=== PATIENT | female | born 1965 | race Caucasian/White ===

== ENCOUNTER 2020-05-02 11:28 | Inpatient (IN) ==
[2020-05-02] MEDS ORDERED: GADOBENATE DIMEGLUMINE 15 ML/VIAL IV ONE (11:29)
[2020-05-02] MEDS ORDERED: 0.9 % SODIUM CHLORIDE 1,000 ML IV ONE (11:47)
[2020-05-02] MEDS ORDERED: KETOROLAC 30 MG/ML VIAL IV ONE (11:47)
[2020-05-02] MEDS ORDERED: CYCLOBENZAPRINE 10 MG TABLET PO ONE (11:47)
[2020-05-02] MEDS ORDERED: ACETAMINOPHEN 1,000 MG/100 ML BOTTLE IV ONE (12:34)
[2020-05-02] MEDS ORDERED: PROMETHAZINE 25 MG/ML VIAL IV ONE (12:34)
[2020-05-02] MEDS ORDERED: fentaNYL 100 MCG/2 ML VIAL IV PRN (12:34)
[2020-05-02 12:44] LABS: Basophils # (Auto) 0.03 K/mcL (0.00-0.30); Basophils % (Auto) 0.2 % (0.0-2.0); Eosinophils # (Auto) 0.04 K/mcL (0.00-0.70); Eosinophils % (Auto) 0.2 % (0.0-7.0); Granulocytes % (Auto) 89.2 % (38.0-78.0); Hematocrit 35.8 % (34.1-44.9); Hemoglobin 12.1 g/dL (11.2-15.7); Lymphocytes # (Auto) 0.73 K/mcL (1.50-4.80); Lymphocytes % (Auto) 3.9 % (15.5-49.0); Mean Cell Volume 94.7 fL (80.0-100.0); Mean Corpuscular HGB Conc 33.8 g/dL (31.0-36.0); Mean Platelet Volume 9.4 fL (7.4-10.4); Monocytes # (Auto) 1.23 K/mcL (0.10-0.90); Monocytes % (Auto) 6.5 % (1.0-12.0); Platelet Count 146 K/mcL (140-440); RBC 3.78 M/mcL (3.59-5.38); Red Cell Distribution Width 12.8 % (11.5-14.5); WBC 18.8 K/mcL (4.50-11.00)
--- NOTE | 2020-05-02 12:50 | XRay Report ---
HISTORY: Fever and back pain FINDINGS: There is a thin band of scar or discoid atelectasis above the left costophrenic sulcus. The lungs are otherwise clear and well expanded, without evidence of pneumonia. There is no pleural effusion or adenopathy. The heart size is normal. IMPRESSION: Normal chest. Interpreted and Authenticated by: Wayne Stone 05/02/20
[2020-05-02 13:03] LABS: HCG,Serum NEGATIVE <10 (<10 mIU/ml)
[2020-05-02 13:08] LABS: ALT/SGPT 18 U/l (0-40); AST/SGOT 21 U/l (0-37); Albumin 4.1 gm/dL (3.2-5.2); Albumin/Globulin Ratio 2.2 (1.0-2.3); Alkaline Phosphatase 65 U/L (39-117); Bilirubin,Total 0.9 mg/dL (0.0-1.0); Blood Urea Nitrogen 13 mg/dl (6-20); C-Reactive Protein 13.2 mg/dl (0.0-0.8); Calcium 8.8 mg/dl (8.6-10.4); Carbon Dioxide 23 mmol/L (22-30); Chloride 101 mmol/L (96-108); Globulin 1.9 gm/dL (2.2-3.7); Glomerular Filtration Rate 98; Glucose 104 mg/dL (70-105)
[2020-05-02 13:33] LABS: Erythrocyte Sedimentation Rate 19 mm/hr (0-20)
[2020-05-02] MEDS ORDERED: VANCOMYCIN 1,500 MG in 0.9 % SODIUM CHLORIDE 500 ML IV ONE (14:17)
[2020-05-02] MEDS ORDERED: cefTRIAXone 2 GM in DEXTROSE 5% IN WATER 50 ML IV ONE (14:17)
--- NOTE | 2020-05-02 14:36 | Emergency Department Note ---
HPI General Chief complaint: Back Pain/Injury Stated complaint: Lower Back Pain Time Seen by Provider: 05/02/20 11:30 Source: patient Mode of arrival: ambulatory Limitations: no limitations History of Present Illness HPI Narrative: Narrative: 54-year old patient presenting with chief complaint of back pain. Patient's pain is located primarily at the lumbar aspect of her back. Patient has been having pain for she does have pain chronically but only over the past few days has gotten very severe. Patient reporting pain is severe at time of evaluation. Patient with history of back pain in the past similar not this bad in the past also was seen about 12 hours ago without complete resolution of her pain despite treatment that usually works. Patient noted to be febrile having difficulty urinating despite feeling full in the bladder, pt is on immunosuppressive medication, pt with radiculopathy symptoms to the right lower extremity; pt without unintentional weight loss, night sweats, weakness, falling or gait instability, patient is also without saddle anesthesia, patient without history of IV drug use. Related Data Home Medications Medication Instructions Recorded Confirmed magnesium oxide 500 mg capsule 500 mg PO QDAY 03/17/16 05/01/20 cholecalciferol (vitamin D3) 3,000 unit PO QDAY cap 07/08/16 05/01/20 lorazepam 0.5 mg tablet 0.5 mg BUCCAL QD-BID PRN 10/24/17 05/01/20 hydroxychloroquine 200 mg tablet 200 mg PO .COMPLEX tab 10/19/18 05/01/20 leflunomide 20 mg tablet 20 mg PO QDAY 10/19/18 05/01/20 omega-3 fatty acids 1,000 mg 1,000 mg PO QDAY 10/19/18 05/01/20 capsule gabapentin 300 mg capsule 300 mg PO TID cap 12/07/19 05/01/20 ibuprofen 200 mg tablet 1,200 mg PO Q8H tab 12/07/19 05/01/20 methocarbamol 750 mg tablet 1,500 mg PO qhs PRN tab 12/07/19 05/01/20 tramadol 50 mg tablet 50 mg PO BID PRN tab 12/07/19 05/01/20 diclofenac sodium 1 % topical gel 2 g TOPICAL QID 04/04/20 05/01/20 Previous Rx's Medication Instructions Recorded fexofenadine 180 mg tablet 180 mg PO QDAY #10 tab 03/29/20 triamcinolone acetonide 0.1 % 1 applic TOPICAL TID #30 g 03/29/20 topical cream Allergies Allergy/AdvReac Type Severity Reaction Status Date / Time niacin AdvReac Rash Verified 05/01/20 21:38 Review of Systems ROS ROS Narrative: Narrative: All systems ED: reviewed and negative except as stated. [facility] Narrative Patient History Narrative: Narrative: Medical/Surgical/Family History All Active Problems (Updated 05/02/20 @ 19:02 by Danny Garcia MD) Phlegmon (Acute) Mass of psoas muscle (Acute) History of surgery (Chronic) PTSD (post-traumatic stress disorder) (Chronic) Tobacco use (Chronic) Chronic pain (Chronic) Radiculopathy, lumbar region (Chronic) Radiculopathy, lumbosacral region (Chronic) Dermatitis (Acute) Effusion, left knee (Acute) Effusion, left knee (Acute) Acute lumbar myofascial strain (Acute) Status post left knee replacement (Acute) Post-operative haemorrhage (Acute) Urticaria (Acute) Allergic reaction (Acute) Influenza-like illness (Acute) Hip pain, right (Acute) Osteoarthritis (Chronic) Hypermobile joints (Chronic) Back pain (Acute) Polyarthralgia (Chronic) Swelling of left knee joint (Acute) S/P hip replacement (Chronic) Vitamin D deficiency (Chronic) Spondylolisthesis, lumbar region (Chronic) Left leg pain (Chronic) Chronic lumbar pain (Chronic) Degenerative disc disease (Chronic) Spinal stenosis (Chronic) Bernardo-Danlos syndrome (Chronic) Anxiety (Chronic) Lumbar back pain (Chronic) Medical History (Updated 05/02/20 @ 19:02 by Danny Garcia MD) Abscess of skin or subcutaneous tissue (Resolved) Anxiety (Chronic) in the 90's Back pain (Acute) Chronic lumbar pain (Chronic) Chronic pain (Chronic) Degenerative disc disease (Chronic) Depression with suicidal ideation (Ruled-out) Effusion, left knee (Acute) Effusion, left knee (Acute) Bernardo-Danlos syndrome (Chronic) Elevated serum hCG in female, not (Ruled-out) Encounter for wound re-check (Resolved) History of tobacco use (Chronic) Hypermobile joints (Chronic) Laceration (Resolved) Left leg pain (Chronic) left total hip replacement 11//2006 Lumbar back pain (Chronic) Muscle pain (Inactive) in youth Osteoarthritis (Chronic) Polyarthralgia (Chronic) PTSD (post-traumatic stress disorder) (Chronic) Radiculopathy, lumbar region (Chronic) Radiculopathy, lumbosacral region (Chronic) Scoliosis (Resolved) Spinal stenosis (Chronic) Spondylolisthesis, lumbar region (Chronic) Swelling of left knee joint (Acute) Tobacco use (Chronic) Vitamin D deficiency (Chronic) Surgical History H/O knee surgery (Inactive) 1995 patella realignment H/O tubal ligation (Chronic) 1997 H/O: hysterectomy (Chronic) 2004 History of lumbar fusion (Chronic) 2015 History of surgery (Chronic) LESI #2 L4-5 w/sed 11/12/19 LESI #1 L4-5 w/sed 06/27/2019 LESI #2 L4-5 w/sed 07/04/2018 LESI #1 L4-5 w/sed 03/20/18 LESI #1 L4-5 w/sed 07/21/17 Knee Joint Injection, left w/sed 07/21/17 LESI #2 L4-5 w/o sed 02/02/2017 LESI #1 L4-5 w/sed 01/13/2017 History of total left hip arthroplasty (Chronic 08/30/16) Hx of appendectomy (Chronic) 1977 Hx of section (Chronic) x2 1986 & 1990 Hx of tonsillectomy (Chronic) 1992 S/P removal of ovarian cyst (Chronic) 1977 Status post lumbar spinal fusion (Inactive) Family History Mother Arthritis Grandfather Myocardial infarction acute Maternal Grandmother Stroke Maternal Social History Smoking Status: Current every day smoker Alcohol Intake Frequency: holiday/special occasion only Substance Use: marijuana Exam Narrative Narrative: Narrative:General: Alert, interactive, appropriate Head: Atraumatic, normocephalic Eyes: Extraocular movements intact, sclera anicteric, no conjunctival injection Ears: Pinnae normal, no discharge Mouth: Oral mucosa moist, no acute swelling or evidence of infection Nares: No nasal discharge, patent bilaterally Neck: Trachea midline, full range of motion Chest: Symmetrical chest wall rise, breathing normally; nonlabored respirations Cardiovascular: Patient with excellent perfusion to the extremities; without tachycardia/bradycardia Skin: Patient without area of erythema, patient is without rash, no ascending lymphangitis or lymphadenopathy Back: On assessment of the back patient is without step-offs, she does have focal tenderness to the midline at L3, there is no erythema to suggest underlying infection, no fluctuance, very focally tender Extremities: Full range of motion joints, no obvious deformities Neuro: Alert, oriented x3, cranial nerves II through XII grossly intact, patient without lateralizing findings such as weakness, or abnormal reflexes Psychiatric: Normal affect, normal mood General Limitations: no limitations Course Vital Signs Vital signs: Vital Signs Temperature 101.5 F H 05/02/20 11:28 Pulse Rate 83 05/02/20 11:28 Respiratory Rate 20 05/02/20 11:28 Blood Pressure 120/69 05/02/20 11:28 Pulse Oximetry (%) 96 05/02/20 11:28 Temperature 101.5 F H 05/02/20 11:28 Pulse Rate 81 05/02/20 14:03 Respiratory Rate 20 05/02/20 11:28 Blood Pressure 103/63 05/02/20 14:03 Pulse Oximetry (%) 94 05/02/20 14:03 [facility] MDM Narrative Medical decision making narrative: Narrative:This patient presenting with back pain. She noted to be febrile at this time was seen about 12 hours prior to arr ival today with similar symptoms however at that time she was not febrile patient without significant tachycardia or hypotension. Patient with very focal tenderness to the midline L3-L4 area on her back. Patient with urinalysis that does not suggest a urinary source for her fever she does have elevated white blood cell count chest x-ray does not show a source for her fever either. Given patient is immunosuppressed with a fever and back pain focal tenderness will get MRI of her L-spine to evaluate for possible discitis, spinal epidural abscess. As were waiting for the MRI patient was given vancomycin 1.5 g and Rocephin 2 g IV. The differential included lumbar strain, disc herniation, sciatica, spinal stenosis, UTI, pyelonephritis, chronic back pain, thoracic strain, contusion, vertebral fracture, compression fractures, shingles, ureteral stone, and scoliosis fortunately no red flags are present. There is no history of trauma. MRI has suspicion for possible early early developing phlegmon left psoas muscle. After discussion with radiologist here as well as Dr. Oden noting that ou r radiologist will do interventional procedure if this does develop into a psoas abscess. Discussed the case with our hospitalist here Dr. Mcrae and patient will be admitted for ongoing antibiotics with plan for CT with contrast tomorrow morning to reevaluate this area. Lab Data Result diagrams: 05/02/20 12:00 05/02/20 12:00 Labs: Lab Results 05/02/20 05/02/20 Range/Units 12:00 12:00 WBC 18.8 H (4.50-11.00) K/mcL RBC 3.78 (3.59-5.38) M/mcL Hgb 12.1 (11.2-15.7) g/dL Hct 35.8 (34.1-44.9) % MCV 94.7 (80.0-100.0) fL MCH 32.0 (26.0-34.0) pg MCHC 33.8 (31.0-36.0) g/dL RDW 12.8 (11.5-14.5) % Plt Count 146 (140-440) K/mcL MPV 9.4 (7.4-10.4) fL Gran % 89.2 H (38.0-78.0) % Lymph % (Auto) 3.9 L (15.5-49.0) % [place] % (Auto) 6.5 (1.0-12.0) % Eos % (Auto) 0.2 (0.0-7.0) % Baso % (Auto) 0.2 (0.0-2.0) % Gran # 16.80 H (1.80-8.00) K/mcL Lymph # (Auto) 0.73 L (1.50-4.80) K/mcL [place] # (Auto) 1.23 H (0.10-0.90) K/mcL Eos # (Auto) 0.04 (0.00-0.70) K/mcL Baso # (Auto) 0.03 (0.00-0.30) K/mcL ESR 19 (0-20) mm/hr Sodium 135 (133-145) mmol/L Potassium 4.0 (3.3-5.1) mmol/L Chloride 101 (96-108) mmol/L Carbon Dioxide 23 (22-30) mmol/L Anion Gap 11.0 (8-16) BUN 13 (6-20) mg/dl Creatinine 0.7 (0.6-1.1) mg/dl GFR Calculation 98 Glucose 104 (70-105) mg/dL Calcium 8.8 (8.6-10.4) mg/dl Total Bilirubin 0.9 (0.0-1.0) mg/dL AST 21 (0-37) U/l ALT 18 (0-40) U/l Alkaline Phosphatase 65 (39-117) U/L C-Reactive Protein 13.2 H (0.0-0.8) mg/dl Total Protein 6.0 (5.9-8.4) gm/dL Albumin 4.1 (3.2-5.2) gm/dL Globulin 1.9 L (2.2-3.7) gm/dL Albumin/Globulin Ratio 2.2 (1.0-2.3) HCG, Qual Negative <10 (<10 mIU/ml) Discharge Plan Patient/Caregiver Discharge Instructions Pt seen by PATIENT SITTER/PA only: No Clinical Impression: Phlegmon, Mass of psoas muscle Patient Disposition: Xfer As Inpt ([facility]) Follow up with: Lory Laird ARNP [Primary Care Provider] - Prescriptions: No Action magnesium oxide 500 mg capsule 500 mg PO QDAY RF: 0 cholecalciferol (vitamin D3) 2,000 unit capsule 3,000 unit PO QDAY RF: 0 diclofenac sodium [Voltaren] 1 % gel 2 g TOPICAL QID RF: 0 lorazepam 0.5 mg tablet 0.5 mg BUCCAL QD-BID PRN (Reason: Anxiety) RF: 0 methocarbamol 750 mg tablet 1,500 mg PO qhs PRN (Reason: low back pain) RF: 0 tramadol 50 mg tablet 50 mg PO BID PRN (Reason: pain) RF: 0 ibuprofen 200 mg tablet 1,200 mg PO Q8H RF: 0 fexofenadine 180 mg tablet 180 mg PO QDAY Qty: 10 RF: 0 triamcinolone acetonide 0.1 % cream 1 applic TOPICAL TID Qty: 30 RF: 0 omega-3 fatty acids [Fish Oil Concentrate] 1,000 mg capsule 1,000 mg PO QDAY RF: 0 leflunomide 20 mg tablet 20 mg PO QDAY RF: 0 hydroxychloroquine [Plaquenil] 200 mg tablet 200 mg PO .COMPLEX RF: 0 gabapentin 300 mg capsule 300 mg PO TID RF: 0
[2020-05-02 15:41] LABS: Appearance,Urine CLEAR; Bilirubin,Urine NEG (NEG); Color,Urine YELLOW; Culture Indicated,Urine NO; Glucose,Urine (UA) NEGATIVE (NEG); Ketones,Urine NEG (NEG); Leukocyte Esterase,Urine NEG /uL (NEG); Nitrate,Urine NEG (NEG); Protein,Urine NEG (NEG); Specific Gravity,Urine 1.009 (1.000-1.035); Urine Blood NEG mg/dL (<0.03); Urobilinogen,Urine NEG (NEG)
--- NOTE | 2020-05-02 16:14 | Magnetic Resonance Report ---
History: Severe low back pain radiating to the left posterior thigh, fever and possible infection TECHNIQUE: Multiplanar imaging was performed using multiple pulse sequences. 12 mL of MultiHance contrast was injected intravenously. Postcontrast T1-weighted views were obtained. FINDINGS: There is abnormal swelling and inflammation in the left psoas muscle extending from the L1-2 level down to L5-S1. The greatest swelling is at the L2 and L3 levels. This has low level diffuse enhancement following contrast. No abscess is seen in or adjacent to the muscle. The swelling and inflammation of the muscle are a new finding since the lumbar CT scan performed yesterday. There is no evidence of discitis or osteomyelitis. There is significant reactive sclerosis in the bone marrow on both sides of the severely degenerated L2-3 disc space. There is increased signal within the nucleus pulposus on T2 but it does not enhance with contrast. There is mild spinal canal stenosis at this level There is stable severe disc degeneration and arthritis throughout the lumbar spine and lower thoracic spine and there are postoperative changes following prior fusion at L3-4. There is no evidence of an epidural abscess and no critical spinal canal stenosis has developed. No hydronephrosis is present. Urinary bladder is outside the field of view. IMPRESSION: New onset inflammation and swelling of the left psoas muscle. This may be a phlegmon. No evidence of osteomyelitis, discitis or paraspinal abscess Stable advanced disc degeneration and arthritis throughout the spine, unchanged from CT scan performed on 05/01/20 Dr. Garcia was called with the results Interpreted and Authenticated by: Wayne Stone 05/02/20
[2020-05-02] MEDS ORDERED: ONDANSETRON 4 MG/2 ML VIAL IV ONE (16:28)
[2020-05-02] MEDS ORDERED: ONDANSETRON 4 MG/2 ML VIAL IV PRN (18:51)
[2020-05-02] MEDS ORDERED: PROMETHAZINE 25 MG/ML VIAL IV PRN ×2 (18:56→20:22)
[2020-05-02] MEDS ORDERED: ZOLPIDEM 5 MG TABLET PO PRN (18:56)
[2020-05-02] MEDS ORDERED: VANCOMYCIN PER PHARMACY IV SCH (19:10)
[2020-05-02] MEDS ORDERED: HYDROXYCHLOROQUINE 200 MG TABLET PO SCH (19:30)
--- NOTE | 2020-05-02 19:37 | Internal Med History&Physical ---
HPI History of Present Illness Patient information: Note initiated : 05/02/20 at 7:25 pm Service Date, if different from initiated Date: [] Patient: Nita Antonio a 54 y/o F admitted on for Lower Back Pain. Chief Complaint: [back pain] History of present illness: Ms. 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 As per patient, patient has been having lower back pain since 11 years old. But she has been feeling a different lower back pain since yesterday 12 noon. The pain is most severe and radiated to her upper back and left thigh. The pain is constant and 10 out of 10. She also complains of nausea and fever. She vomited once today. Otherwise she denies headache, dizziness, chest pain, abdominal pain, dysuria, cough or shortness of breath. Denies urinary or bowel incontinence. Denies focal numbness or weakness. No recent travel or sick contact. Patient admits she is a current smoker. She also states that she has RA. Review of Systems All systems: reviewed and no additional remarkable complaints except as stated Constitutional Additional comments: Mild acute distress due to back pain [facility] Medical History (Updated 05/02/20 @ 19:02 by Danny Garcia MD) Abscess of skin or subcutaneous tissue (Resolved) Anxiety (Chronic) in the ' Back pain (Acute) Chronic lumbar pain (Chronic) Chronic pain (Chronic) Degenerative disc disease (Chronic) Depression with suicidal ideation (Ruled-out) Effusion, left knee (Acute) Effusion, left knee (Acute) Bernardo-Danlos syndrome (Chronic) Elevated serum hCG in female, not (Ruled-out) Encounter for wound re-check (Resolved) History of tobacco use (Chronic) Hypermobile joints (Chronic) Laceration (Resolved) Left leg pain (Chronic) left total hip replacement 08/2006 Lumbar back pain (Chronic) Muscle pain (Inactive) in youth Osteoarthritis (Chronic) Polyarthralgia (Chronic) PTSD (post-traumatic stress disorder) (Chronic) Radiculopathy, lumbar region (Chronic) Radiculopathy, lumbosacral region (Chronic) Scoliosis (Resolved) Spinal stenosis (Chronic) Spondylolisthesis, lumbar region (Chronic) Swelling of left knee joint (Acute) Tobacco use (Chronic) Vitamin D deficiency (Chronic) Surgical History H/O knee surgery (Inactive) 1995 patella realignment H/O tubal ligation (Chronic) 1997 H/O: hysterectomy (Chronic) 2004 History of lumbar fusion (Chronic) 2015 History of surgery (Chronic) LESI #2 L4-5 w/sed 11/12/19 LESI #1 L4-5 w/sed 06/27/2019 LESI #2 L4-5 w/sed 07/04/2018 LESI #1 L4-5 w/sed 03/20/18 LESI #1 L4-5 w/sed 07/21/17 Knee Joint Injection, left w/sed 07/21/17 LESI #2 L4-5 w/o sed 02/02/2017 LESI #1 L4-5 w/sed 01/13/2017 History of total left hip arthroplasty (Chronic 08/30/16) Hx of appendectomy (Chronic) 1977 Hx of section (Chronic) x2 1986 & 1990 Hx of tonsillectomy (Chronic) 1992 S/P removal of ovarian cyst (Chronic) 1977 Status post lumbar spinal fusion (Inactive) Family History Mother Arthritis Grandfather Myocardial infarction acute Maternal Grandmother Stroke Maternal Social History household members: alone marital status: education level: college occupational status: employed occupation: [employer] pets and animals: Yes pets and animals: dog(s) leisure activities: other hx recent travel: No sexually active: Yes (1 partner) other: Children-2, [place], garden, arts and crafts well-balanced diet: rarely or never daily servings fruits/ve-1 daily servings of milk/calcium: 5 or more eating out: 1-3 times/week during the past year weight has: other physical activity: walking and other frequency: 3-4 times per week duration: 45-60 minutes/day smoking status: Current every day smoker smoking status stop date: 08/10/15 alcohol intake frequency: holiday/special occasion only substance use type: marijuana chacorta/caodaism: Other special chacorta needs: No seatbelt use: always helmet use: No drive intox or ride w/ intox tow car driver: No working smoke detector in home: Yes fire extinguisher in home: No carbon monox detector in home: Yes firearms in home: No MEDS/ALLERGIES Home Medications and Allergies Home Medications Medication Instructions Recorded Confirmed Type magnesium oxide 500 mg capsule 500 mg PO QDAY 03/17/16 05/02/20 History cholecalciferol (vitamin D3) 3,000 unit PO QDAY cap 07/08/16 05/02/20 History lorazepam 0.5 mg tablet 0.5 mg BUCCAL QD-BID PRN 10/24/17 05/02/20 History hydroxychloroquine 200 mg tablet 200 mg PO .COMPLEX tab 10/19/18 05/02/20 History leflunomide 20 mg tablet 20 mg PO QDAY 10/19/18 05/02/20 History omega-3 fatty acids 1,000 mg 1,000 mg PO QDAY 10/19/18 05/02/20 History capsule gabapentin 300 mg capsule 300 mg PO TID cap 12/07/19 05/02/20 History ibuprofen 200 mg tablet 1,200 mg PO Q8H tab 12/07/19 05/02/20 History methocarbamol 750 mg tablet 1,500 mg PO qhs PRN tab 12/07/19 05/02/20 History tramadol 50 mg tablet 50 mg PO BID PRN tab 12/07/19 05/02/20 History triamcinolone acetonide 0.1 % 1 applic TOPICAL TID #30 g 03/29/20 05/02/20 Rx topical cream diclofenac sodium 1 % topical gel 2 g TOPICAL QID 04/04/20 05/02/20 History Allergies Allergy/AdvReac Type Severity Reaction Status Date / Time niacin AdvReac Rash Verified 05/01/20 21:38 EXAM Constitutional Vitals: Temp Pulse Resp BP Pulse Ox 101.5 F H 66 20 137/82 97 05/02/20 11:28 05/02/20 18:46 05/02/20 11:28 05/02/20 18:46 05/02/20 18:46 Mild acute distress due to back pain Additional findings Additional findings: General -mild acute distress due to back pain Eyes - PERRLA, EOM intact ENT no rhinorrhea, no noticeable or palpable swelling, no redness or rash around throat or on face Neck supple, no JVD, no thyromegaly Respiratory: Lungs -clear, no wheezing or crackles. Cardiovascular - RRR no m/r/g, GI - Normal bowel sounds, no distended, soft. Extremeties - No edema, cyanosis or clubbing. Moderate to severe tenderness over lower back, lumbosacral spinal and left gluteus area Hemo/lymphatic/immune no lymphadenopathy Neurological Alert and oriented x 3, strength and sensation sysmmetrical, no focal neurological deficits. Psychiatry flat affect DATA Data Completed and Pending Labs on day of discharge: Labs from last 24 hours 05/02/20 05/02/20 05/02/20 14:45 14:45 12:00 WBC RBC Hgb Hct MCV MCH MCHC RDW Plt Count MPV Gran % Lymph % (Auto) [place] % (Auto) Eos % (Auto) Baso % (Auto) Gran # Lymph # (Auto) [place] # (Auto) Eos # (Auto) Baso # (Auto) ESR Sodium 135 Potassium 4.0 Chloride 101 Carbon Dioxide 23 Anion Gap 11.0 BUN 13 Creatinine 0.7 GFR Calculation 98 Glucose 104 Calcium 8.8 Total Bilirubin 0.9 AST 21 ALT 18 Alkaline Phosphatase 65 C-Reactive Protein 13.2 H Total Protein 6.0 Albumin 4.1 Globulin 1.9 L Albumin/Globulin Ratio 2.2 HCG, Qual Negative <10 Urine Color Yellow Urine Appearance Clear Urine pH 6.0 Ur Specific [place] 1.009 Urine Protein Neg Urine Glucose (UA) Negative Urine Ketones Neg Urine Occult Blood Neg Urine Nitrate Neg Urine Bilirubin Neg Urine Urobilinogen Neg Ur Leukocyte Esterase Neg Ur Culture Indicated? No Urine Opiates Screen Pending Ur Opiates Confirm Pending Ur Oxycodone Screen Pending Urine Methadone Screen Pending Ur Methadone Confirm Pending Ur Barbiturates Screen Pending Ur Barbiturate Confirm Pending Ur Phencyclidine Scrn Pending Urine PCP Confirm Pending Ur Amphetamines Screen Pending U Amphetamines Confirm Pending U Benzodiazepines Scrn Pending U Benzodiazepine Confm Pending Urine Cocaine Screen Pending Urine Cocaine Confirm Pending U Cannabinoids Confirm Pending U Marijuana (THC) Screen Pending 05/02/20 12:00 WBC 18.8 H RBC 3.78 Hgb 12.1 Hct 35.8 MCV 94.7 MCH 32.0 MCHC 33.8 RDW 12.8 Plt Count 146 MPV 9.4 Gran % 89.2 H Lymph % (Auto) 3.9 L [place] % (Auto) 6.5 Eos % (Auto) 0.2 Baso % (Auto) 0.2 Gran # 16.80 H Lymph # (Auto) 0.73 L [place] # (Auto) 1.23 H Eos # (Auto) 0.04 Baso # (Auto) 0.03 ESR 19 Sodium Potassium Chloride Carbon Dioxide Anion Gap BUN Creatinine GFR Calculation Glucose Calcium Total Bilirubin AST ALT Alkaline Phosphatase C-Reactive Protein Total Protein Albumin Globulin Albumin/Globulin Ratio HCG, Qual Urine Color Urine Appearance Urine pH Ur Specific [place] Urine Protein Urine Glucose (UA) Urine Ketones Urine Occult Blood Urine Nitrate Urine Bilirubin Urine Urobilinogen Ur Leukocyte Esterase Ur Culture Indicated? Urine Opiates Screen Ur Opiates Confirm Ur Oxycodone Screen Urine Methadone Screen Ur Methadone Confirm Ur Barbiturates Screen Ur Barbiturate Confirm Ur Phencyclidine Scrn Urine PCP Confirm Ur Amphetamines Screen U Amphetamines Confirm U Benzodiazepines Scrn U Benzodiazepine Confm Urine Cocaine Screen Urine Cocaine Confirm U Cannabinoids Confirm U Marijuana (THC) Screen A/P Narrative A/P Narrative: 1. Acute phlegmon, left psoas muscle K68. 12 MRI showed possible acute phlegmon left psoas muscle. IR Dr. Stone and ID Dr. Powers were consulted, really appreciate it. The patient is on immunosuppressant due to RA MRSA screening Urine drug screening Blood culture was sent in the ER Vancomycin (dosing by pharmacy) and Rocephin IV 2. Hx of spinal stenosis, s/p lumbar spinal fusion 3. Hx of radiculopathy, lumbosacral 4. Arthropathy, Lumbar 5. Bernardo-Danlos syndrome Patient has been follow with her orthopedics 6. RA As per patient, she has RA. Continue home medication leflunomide 20 mg tablet daily 7. Current smoker Smoking cessation counseling Nicotine patch 8. DVT prophylaxis: Lovenox 9. 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
[2020-05-02 19:39] LABS: Amphetamine Screen,Urine NONE DETECTED (NONDETECTED); Barbiturate Screen,Urine NONE DETECTED (NONDETECTED); Benzodiazepines Screen,Urine NONE DETECTED (NONDETECTED); Cannabinoid Screen,Urine SUSPECT POSITIVE (NONDETECTED); Cocaine Screen,Urine NONE DETECTED (NONDETECTED); Opiate Screen,Urine NONE DETECTED (NONDETECTED); Oxycodone, Urine Screen NONE DETECTED (NONDETECTED); Phencyclidine Screen,Urine NONE DETECTED (NONDETECTED)
--- NOTE | 2020-05-02 19:55 | Internal Med History&Physical ---
HPI History of Present Illness Patient information: Note initiated : 05/02/20 at 7:55 pm Service Date, if different from initiated Date: [] Patient: Nita Antonio a 54 y/o F admitted on 05/02/20 for Lower Back Pain. Chief Complaint: [] History of present illness: Ms. Antonio is a 54 year old F [facility] Medical History (Updated 05/02/20 @ 19:02 by Danny Garcia MD) Abscess of skin or subcutaneous tissue (Resolved) Anxiety (Chronic) in the Back pain (Acute) Chronic lumbar pain (Chronic) Chronic pain (Chronic) Degenerative disc disease (Chronic) Depression with suicidal ideation (Ruled-out) Effusion, left knee (Acute) Effusion, left knee (Acute) Bernardo-Danlos syndrome (Chronic) Elevated serum hCG in female, not (Ruled-out) Encounter for wound re-check (Resolved) History of tobacco use (Chronic) Hypermobile joints (Chronic) Laceration (Resolved) Left leg pain (Chronic) left total hip replacement 08/2006 Lumbar back pain (Chronic) Muscle pain (Inactive) in youth Osteoarthritis (Chronic) Polyarthralgia (Chronic) PTSD (post-traumatic stress disorder) (Chronic) Radiculopathy, lumbar region (Chronic) Radiculopathy, lumbosacral region (Chronic) Scoliosis (Resolved) Spinal stenosis (Chronic) Spondylolisthesis, lumbar region (Chronic) Swelling of left knee joint (Acute) Tobacco use (Chronic) Vitamin D deficiency (Chronic) Surgical History H/O knee surgery (Inactive) 1995 patella realignment H/O tubal ligation (Chronic) 1997 H/O: hysterectomy (Chronic) 2004 History of lumbar fusion (Chronic) 2015 History of surgery (Chronic) LESI #2 L4-5 w/sed 11/12/19 LESI #1 L4-5 w/sed 06/27/2019 LESI #2 L4-5 w/sed 07/04/2018 LESI #1 L4-5 w/sed 03/20/18 LESI #1 L4-5 w/sed 07/21/17 Knee Joint Injection, left w/sed 07/21/17 LESI #2 L4-5 w/o sed 02/02/2017 LESI #1 L4-5 w/sed 01/13/2017 History of total left hip arthroplasty (Chronic 08/30/16) Hx of appendectomy (Chronic) 1977 Hx of section (Chronic) x2 1986 & 1990 Hx of tonsillectomy (Chronic) 1992 S/P removal of ovarian cyst (Chronic) 1977 Status post lumbar spinal fusion (Inactive) Family History Mother Arthritis Grandfather Myocardial infarction acute Maternal Grandmother Stroke Maternal Social History household members: alone marital status: education level: college occupational status: employed occupation: [employer] pets and animals: Yes pets and animals: dog(s) leisure activities: other hx recent travel: No sexually active: Yes (1 partner) other: Children-2, [place], garden, arts and crafts well-balanced diet: rarely or never daily servings fruits/ve-1 daily servings of milk/calcium: 5 or more eating out: 1-3 times/week during the past year weight has: other physical activity: walking and other frequency: 3-4 times per week duration: 45-60 minutes/day smoking status: Current every day smoker smoking status stop date: 08/10/15 alcohol intake frequency: holiday/special occasion only substance use type: marijuana chacorta/quaker: Other special chacorta needs: No seatbelt use: always helmet use: No drive intox or ride w/ intox helper driver: No working smoke detector in home: Yes fire extinguisher in home: No carbon monox detector in home: Yes firearms in home: No MEDS/ALLERGIES Home Medications and Allergies Home Medications Medication Instructions Recorded Confirmed Type magnesium oxide 500 mg capsule 500 mg PO QDAY 03/17/16 05/02/20 History cholecalciferol (vitamin D3) 3,000 unit PO QDAY cap 07/08/16 05/02/20 History lorazepam 0.5 mg tablet 0.5 mg BUCCAL QD-BID PRN 10/24/17 05/02/20 History hydroxychloroquine 200 mg tablet 200 mg PO .COMPLEX tab 10/19/18 05/02/20 History leflunomide 20 mg tablet 20 mg PO QDAY 10/19/18 05/02/20 History omega-3 fatty acids 1,000 mg 1,000 mg PO QDAY 10/19/18 05/02/20 History capsule gabapentin 300 mg capsule 300 mg PO TID cap 12/07/19 05/02/20 History ibuprofen 200 mg tablet 1,200 mg PO Q8H tab 12/07/19 05/02/20 History methocarbamol 750 mg tablet 1,500 mg PO qhs PRN tab 12/07/19 05/02/20 History tramadol 50 mg tablet 50 mg PO BID PRN tab 12/07/19 05/02/20 History fexofenadine 180 mg tablet 180 mg PO QDAY #10 tab 03/29/20 05/02/20 Rx triamcinolone acetonide 0.1 % 1 applic TOPICAL TID #30 g 03/29/20 05/02/20 Rx topical cream diclofenac sodium 1 % topical gel 2 g TOPICAL QID 04/04/20 05/02/20 History Allergies Allergy/AdvReac Type Severity Reaction Status Date / Time niacin AdvReac Rash Verified 05/01/20 21:38 EXAM Constitutional Vitals: Temp Pulse Resp BP Pulse Ox 101.5 F H 66 20 137/82 97 05/02/20 19:30 05/02/20 19:30 05/02/20 19:30 05/02/20 19:30 05/02/20 19:30 DATA Data Completed and Pending Labs on day of discharge: Labs from last 24 hours 05/02/20 05/02/20 05/02/20 14:45 14:45 12:00 WBC RBC Hgb Hct MCV MCH MCHC RDW Plt Count MPV Gran % Lymph % (Auto) Drew % (Auto) Eos % (Auto) Baso % (Auto) Gran # Lymph # (Auto) Drew # (Auto) Eos # (Auto) Baso # (Auto) ESR Sodium 135 Potassium 4.0 Chloride 101 Carbon Dioxide 23 Anion Gap 11.0 BUN 13 Creatinine 0.7 GFR Calculation 98 Glucose 104 Calcium 8.8 Total Bilirubin 0.9 AST 21 ALT 18 Alkaline Phosphatase 65 C-Reactive Protein 13.2 H Total Protein 6.0 Albumin 4.1 Globulin 1.9 L Albumin/Globulin Ratio 2.2 HCG, Qual Negative <10 Urine Color Yellow Urine Appearance Clear Urine pH 6.0 Ur Specific [place] 1.009 Urine Protein Neg Urine Glucose (UA) Negative Urine Ketones Neg Urine Occult Blood Neg Urine Nitrate Neg Urine Bilirubin Neg Urine Urobilinogen Neg Ur Leukocyte Esterase Neg Ur Culture Indicated? No Urine Opiates Screen None detected Ur Opiates Confirm Pending Ur Oxycodone Screen None detected Urine Methadone Screen None detected Ur Methadone Confirm Pending Ur Barbiturates Screen None detected Ur Barbiturate Confirm Pending Ur Phencyclidine Scrn None detected Urine PCP Confirm Pending Ur Amphetamines Screen None detected U Amphetamines Confirm Pending U Benzodiazepines Scrn None detected U Benzodiazepine Confm Pending Urine Cocaine Screen None detected Urine Cocaine Confirm Pending U Cannabinoids Confirm Pending U Marijuana (THC) Screen Suspect positive A 05/02/20 12:00 WBC 18.8 H RBC 3.78 Hgb 12.1 Hct 35.8 MCV 94.7 MCH 32.0 MCHC 33.8 RDW 12.8 Plt Count 146 MPV 9.4 Gran % 89.2 H Lymph % (Auto) 3.9 L Drew % (Auto) 6.5 Eos % (Auto) 0.2 Baso % (Auto) 0.2 Gran # 16.80 H Lymph # (Auto) 0.73 L Drew # (Auto) 1.23 H Eos # (Auto) 0.04 Baso # (Auto) 0.03 ESR 19 Sodium Potassium Chloride Carbon Dioxide Anion Gap BUN Creatinine GFR Calculation Glucose Calcium Total Bilirubin AST ALT Alkaline Phosphatase C-Reactive Protein Total Protein Albumin Globulin Albumin/Globulin Ratio HCG, Qual Urine Color Urine Appearance Urine pH Ur Specific [place] Urine Protein Urine Glucose (UA) Urine Ketones Urine Occult Blood Urine Nitrate Urine Bilirubin Urine Urobilinogen Ur Leukocyte Esterase Ur Culture Indicated? Urine Opiates Screen Ur Opiates Confirm Ur Oxycodone Screen Urine Methadone Screen Ur Methadone Confirm Ur Barbiturates Screen Ur Barbiturate Confirm Ur Phencyclidine Scrn Urine PCP Confirm Ur Amphetamines Screen U Amphetamines Confirm U Benzodiazepines Scrn U Benzodiazepine Confm Urine Cocaine Screen Urine Cocaine Confirm U Cannabinoids Confirm U Marijuana (THC) Screen A/P Time Spent With Patient Time: Total time spent is greater than 50% in coordination of care (as documented) at patient's floor/unit and/or counseling patient:
[2020-05-02] MEDS: HYDROmorphone 0.5 MG/0.5 ML SYRINGE IV PRN ×2 (20:35→22:53)
[2020-05-02] MEDS ORDERED: GABAPENTIN 300 MG CAPSULE PO SCH (21:00)
[2020-05-02] MEDS: 0.9 % SODIUM CHLORIDE 1,000 ML IV SCH (21:17)
[2020-05-02] MEDS: 0.9 % SODIUM CHLORIDE 10 ML SYRINGE IV SCH (21:18)
[2020-05-02] MEDS: GABAPENTIN 300 MG CAPSULE PO SCH (21:18)
[2020-05-02] MEDS: SENNOSIDES 1 TABLET PO SCH (21:18)
[2020-05-02] MEDS: DOCUSATE SODIUM 100 MG CAPSULE PO SCH (21:18)
[2020-05-02] MEDS: traMADol 50 MG TABLET PO PRN (22:22)
[2020-05-02] MEDS: METHOCARBAMOL 750 MG TABLET PO PRN (22:23)
[2020-05-02] MEDS: LORazepam 0.5 MG TABLET PO PRN (22:23)
[2020-05-03] MEDS: HYDROmorphone 0.5 MG/0.5 ML SYRINGE IV PRN ×10 (01:17→22:43)
[2020-05-03] MEDS ORDERED: VANCOMYCIN 500 MG in 0.9 % SODIUM CHLORIDE 100 ML IV ONE (03:00)
[2020-05-03] MEDS: traMADol 50 MG TABLET PO PRN ×3 (04:31→19:34)
[2020-05-03] MEDS: 0.9 % SODIUM CHLORIDE 10 ML SYRINGE IV SCH ×3 (05:57→20:55)
[2020-05-03 06:34] LABS: Basophils # (Auto) 0.03 K/mcL (0.00-0.30); Basophils % (Auto) 0.2 % (0.0-2.0); Eosinophils # (Auto) 0.15 K/mcL (0.00-0.70); Eosinophils % (Auto) 1.1 % (0.0-7.0); Hemoglobin 11.5 g/dL (11.2-15.7); Lymphocytes % (Auto) 2.8 % (15.5-49.0); Mean Cell Volume 98.1 fL (80.0-100.0); Mean Corpuscular HGB Conc 31.9 g/dL (31.0-36.0); Mean Platelet Volume 9.1 fL (7.4-10.4); Monocytes # (Auto) 0.55 K/mcL (0.10-0.90); Monocytes % (Auto) 3.9 % (1.0-12.0); Platelet Count 123 K/mcL (140-440); RBC 3.67 M/mcL (3.59-5.38); Red Cell Distribution Width 12.7 % (11.5-14.5); WBC 14.2 K/mcL (4.50-11.00)
[2020-05-03 06:49] LABS: ALT/SGPT 16 U/l (0-40); AST/SGOT 20 U/l (0-37); Albumin 3.4 gm/dL (3.2-5.2); Albumin/Globulin Ratio 1.5 (1.0-2.3); Alkaline Phosphatase 70 U/L (39-117); Bilirubin,Total 0.5 mg/dL (0.0-1.0); Blood Urea Nitrogen 14 mg/dl (6-20); Calcium 8.3 mg/dl (8.6-10.4); Carbon Dioxide 21 mmol/L (22-30); Chloride 104 mmol/L (96-108); Globulin 2.2 gm/dL (2.2-3.7); Glomerular Filtration Rate 98; Glucose 73 mg/dL (70-105)
[2020-05-03] MEDS: 0.9 % SODIUM CHLORIDE 1,000 ML IV SCH ×3 (07:13→21:46)
[2020-05-03] MEDS: ENOXAPARIN 40 MG/0.4 ML SYRINGE SQ SCH (08:13)
[2020-05-03] MEDS: VITAMIN D3 1,000 UNIT TABLET PO SCH (08:13)
[2020-05-03] MEDS: GABAPENTIN 300 MG CAPSULE PO SCH ×2 (08:14→20:55)
[2020-05-03] MEDS: LEFLUNOMIDE 20 MG TABLET PO SCH (08:15)
[2020-05-03] MEDS: DOCUSATE SODIUM 100 MG CAPSULE PO SCH ×2 (08:15→20:54)
[2020-05-03] MEDS: HYDROXYCHLOROQUINE 200 MG TABLET PO SCH (08:15)
[2020-05-03] MEDS: LIDOCAINE PATCH TOPICAL SCH ×2 (08:15→08:16)
[2020-05-03 08:29] LABS: Erythrocyte Sedimentation Rate 33 mm/hr (0-20)
[2020-05-03] MEDS ORDERED: cefTRIAXone 2 GM in DEXTROSE 5% IN WATER 50 ML IV SCH (09:00)
[2020-05-03] MEDS: NICOTINE 7 MG PATCH TOPICAL SCH (09:55)
[2020-05-03] MEDS ORDERED: VANCOMYCIN 1,000 MG in 0.9 % SODIUM CHLORIDE 250 ML IV SCH (11:00)
[2020-05-03] MEDS ORDERED: KETOROLAC 15 MG/ML VIAL IV PRN (11:51)
--- NOTE | 2020-05-03 12:17 | Infectious Disease Consult ---
HPI Data of Consult Primary Care Provider: Lory Laird Consult Narrative cc:: CC: Erna Mcrae 54-year-old lady with PMHx of RA (on Humira), Bernardo danlos Syndrome, smoking, anxiety, degenerative disc ds is admitted after acute worsening of her chronic back pain. She has had back issue for last 8-10 years, has previous fixation at L3-L4, prolapsed IV disc, multi-leve disc degenerative ds. She woke up this evening with acute worsening of her back pain, along with c/o spasms and inability to move. The back pain was radiating to left thigh. Denied any bladder/bowel incontinence. She came to ED yesterday and was sent home with pain meds. Since her pain didnot get better, and was out of proportion she came back to ED at [facility]. This time she was febrile up to 101F. She denied recent back injections. Had a recent knee injection at [facility] in early April. Denied any skin boils, blisters, trauma. Mentions she had a skin rash over her hands and forearms which was itchy, and has now disappeared except for few scabs. Reports decreased appetite, constipation. Review of Systems All systems: reviewed and no additional remarkable complaints except as stated [facility] Medical History Abscess of skin or subcutaneous tissue (Resolved) Anxiety (Chronic) in the ' Back pain (Acute) Chronic lumbar pain (Chronic) Chronic pain (Chronic) Degenerative disc disease (Chronic) Depression with suicidal ideation (Ruled-out) Effusion, left knee (Acute) Effusion, left knee (Acute) Bernardo-Danlos syndrome (Chronic) Elevated serum hCG in female, not (Ruled-out) Encounter for wound re-check (Resolved) History of tobacco use (Chronic) Hypermobile joints (Chronic) Laceration (Resolved) Left leg pain (Chronic) left total hip replacement 08/2006 Lumbar back pain (Chronic) Muscle pain (Inactive) in youth Osteoarthritis (Chronic) Polyarthralgia (Chronic) PTSD (post-traumatic stress disorder) (Chronic) Radiculopathy, lumbar region (Chronic) Radiculopathy, lumbosacral region (Chronic) Scoliosis (Resolved) Spinal stenosis (Chronic) Spondylolisthesis, lumbar region (Chronic) Swelling of left knee joint (Acute) Tobacco use (Chronic) Vitamin D deficiency (Chronic) Surgical History H/O knee surgery (Inactive) 1995 patella realignment H/O tubal ligation (Chronic) 1997 H/O: hysterectomy (Chronic) 2004 History of lumbar fusion (Chronic) 2016 History of surgery (Chronic) LESI #2 L4-5 w/sed 11/12/19 LESI #1 L4-5 w/sed 06/27/2019 LESI #2 L4-5 w/sed 07/04/2018 LESI #1 L4-5 w/sed 03/20/18 LESI #1 L4-5 w/sed 07/21/17 Knee Joint Injection, left w/sed 07/21/17 LESI #2 L4-5 w/o sed 02/02/2017 LESI #1 L4-5 w/sed 01/13/2017 History of total left hip arthroplasty (Chronic 08/30/16) Hx of appendectomy (Chronic) 1977 Hx of section (Chronic) x2 1986 & 1990 Hx of tonsillectomy (Chronic) 1992 S/P removal of ovarian cyst (Chronic) 1977 Status post lumbar spinal fusion (Inactive) Family History Mother Arthritis Grandfather Myocardial infarction acute Maternal Grandmother Stroke Maternal Social History household members: alone marital status: education level: college occupational status: employed occupation: [employer] pets and animals: Yes pets and animals: dog(s) leisure activities: other hx recent travel: No sexually active: Yes (1 partner) other: Children-2, [place], garden, arts and crafts well-balanced diet: rarely or never daily servings fruits/ve-1 daily servings of milk/calcium: 5 or more eating out: 1-3 times/week during the past year weight has: other physical activity: walking and other frequency: 3-4 times per week duration: 45-60 minutes/day smoking status: Current every day smoker smoking status stop date: 08/10/15 alcohol intake frequency: holiday/special occasion only substance use type: marijuana chacorta/adventist: Other special chacorta needs: No seatbelt use: always helmet use: No drive intox or ride w/ intox funeral driver: No working smoke detector in home: Yes fire extinguisher in home: No carbon monox detector in home: Yes firearms in home: No MEDS/ALLERGIES Home Medications and Allergies Home Medications Medication Instructions Recorded Confirmed Type magnesium oxide 500 mg capsule 500 mg PO QDAY 03/17/16 05/02/20 History cholecalciferol (vitamin D3) 3,000 unit PO QDAY cap 07/08/16 05/02/20 History lorazepam 0.5 mg tablet 0.5 mg BUCCAL QD-BID PRN 10/24/17 05/02/20 History hydroxychloroquine 200 mg tablet 200 mg PO .COMPLEX tab 10/19/18 05/02/20 History leflunomide 20 mg tablet 20 mg PO QDAY 10/19/18 05/02/20 History omega-3 fatty acids 1,000 mg 1,000 mg PO QDAY 10/19/18 05/02/20 History capsule gabapentin 300 mg capsule 600 mg PO DAILY cap 12/07/19 05/02/20 History ibuprofen 200 mg tablet 800 mg PO Q8H tab 12/07/19 05/02/20 History methocarbamol 750 mg tablet 1,500 mg PO qhs PRN tab 12/07/19 05/02/20 History tramadol 50 mg tablet 50 mg PO BID PRN tab 12/07/19 05/02/20 History triamcinolone acetonide 0.1 % 1 applic TOPICAL TID #30 g 03/29/20 05/02/20 Rx topical cream diclofenac sodium 1 % topical gel 2 g TOPICAL QID PRN 04/04/20 05/02/20 History Humira Q2W 05/02/20 History gabapentin 300 mg PO QHS 05/02/20 05/02/20 History Allergies Allergy/AdvReac Type Severity Reaction Status Date / Time niacin AdvReac Rash Verified 05/01/20 21:38 Physical Examination Vital Signs Vital signs: Temp Pulse Resp BP Pulse Ox 37.4 C H 86 12 125/77 91 05/03/20 11:38 05/03/20 11:38 05/03/20 11:38 05/03/20 11:38 05/03/20 11:38 Constitutional General appearance: alert and appears uncomfortable Respiratory Effort: normal Auscultation: bilateral: clear Cardiovascular Cardiovascular: other (s1 s2 normal, seems to have a diastolic herat murmur best heard at left 2nd ICS) Musculoskeletal Musculoskeletal: joint tenderness and other (has mild ulnar deviation of both hands. Point tenderness over thoracic and lumbosacral spine. ++ tenderness over left paravertebral area.) Additional Exam Additional exam: skin over hands and forearm has resolving skin rash Results Laboratory Findings CBC and BMP: 05/03/20 05:30 05/03/20 05:30 Abnormal lab findings: Abnormal Labs 05/02/20 05/02/20 05/02/20 12:00 12:00 14:45 WBC 18.8 H Plt Count Gran % 89.2 H Lymph % (Auto) 3.9 L Gran # 16.80 H Lymph # (Auto) 0.73 L Warrick # (Auto) 1.23 H ESR Carbon Dioxide Calcium C-Reactive Protein 13.2 H Total Protein Globulin 1.9 L U Marijuana (THC) Screen Suspect positive A 05/03/20 05/03/20 05:30 05:30 WBC 14.2 H Plt Count 123 L Gran % 92.0 H Lymph % (Auto) 2.8 L Gran # 13.03 H Lymph # (Auto) 0.40 L Warrick # (Auto) ESR 33 H Carbon Dioxide 21 L Calcium 8.3 L C-Reactive Protein Total Protein 5.6 L Globulin U Marijuana (THC) Screen Microbiology: Microbiology 05/02/20 14:34 Urine - Clean Void Mid-Stream Urine Culture - Preliminary 05/02/20 14:45 Blood Blood Culture - Preliminary Gram positive cocci 05/02/20 14:38 Blood Blood Culture - Preliminary Gram positive cocci 05/02/20 20:23 Nose - Both Right and Left MRSA (PCR) - Final A/P Narrative A/P Narrative: A: 1. Complicated MSSA bacteremia: - risk factors: RA on immunosuppressive therapy, MSSA colonization and itchy skin rash (now resolved) - possible portal of entry: skin - no sepsis 2. Left illio-psoas muscle inflammation: sec to infection. concerns for seeding from MSSA - MRI spine s/o early phlegmon formation Recommendations: - Stop IV Vanc and IV Ceftriaxone - Start IV Cefazolin 2 gm q8 hrs - TTE - repeat blood Cx every other day until neg for 48 hrs. Once neg for 48 hrs, a PICC line can be placed - In case there is a drainable fluid collection in illiopsoas muscle, agree with CT-guided aspiration of left psoas muscle swelling. Send aspirate for cell count, GS and C/S will follow Albino Powers MD Infectious Diseases Time Spent With Patient Time: Total time spent is greater than 50% in coordination of care (as documen judie) at patient's floor/unit and/or counseling patient:
--- NOTE | 2020-05-03 13:31 | Internal Med Progress Note ---
SUBJECTIVE Subjective Patient information: Note initiated : 05/03/20 at 1:25 pm Service Date, if different from initiated Date: [] Patient: Nita Antonio a 54 y/o F admitted on 05/02/20 for Lower Back Pain. Chief Complaint: [] Interval History: Ms. 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 As per patient, patient has been having lower back pain since 11 years old. But she has been feeling a different lower back pain since yesterday 12 noon. The pain is most severe and radiated to her upper back and left thigh. The pain is constant and 10 out of 10. She also complains of nausea and fever. She vomited once today. Otherwise she denies headache, dizziness, chest pain, abdominal pain, dysuria, cough or shortness of breath. Denies urinary or bowel incontinence. Denies focal numbness or weakness. No recent travel or sick contact. Patient admits she is a current smoker. She also states that she has RA. 05/03 Pt does not feel well and feels cold. Blood culture showed GPC - MSSA. ID Dr. Powers saw pt today. Really apprecaite it. As per Dr. Powers, - Stop IV Vanc and IV Ceftriaxone - Start IV Cefazolin 2 gm q8 hrs - TTE - repeat blood Cx every other day until neg for 48 hrs. Once neg for 48 hrs, a PICC line can be placed - agree with IR, CT-guided aspiration of left psoas muscle swelling. Send aspirate for cell count, GS and C/S Review of Systems All systems: reviewed and no additional remarkable complaints except as stated Constitutional Vitals: Vital Signs Temp Pulse Resp BP Pulse Ox 99.4 F H 86 12 125/77 91 05/03/20 11:38 05/03/20 11:38 05/03/20 11:38 05/03/20 11:38 05/03/20 11:38 Period Temp Pulse Resp BP Sys/Sparks Pulse Ox Last 24 Hr 99.0 F-101.5 F 61-88 12-22 103-147/62-98 88-98 Intake and Output 05/02/20 05/03/20 05/03/20 21:59 05:59 13:59 Intake Total 0813 978 9777 Output Total 325 Balance 1650 -25 1317 Weight 60.044 kg 60.044 kg Patient Weight 05/04/20 05:59 Weight 60.044 kg Intake & Output: Intake & Output 05/02/20 05/03/20 05/03/20 21:59 05:59 13:59 Intake Total 0113 291 8000 Output Total 325 Balance 1650 -25 1317 Weight 60.044 kg 60.044 kg Intake: IV 1650 1317 Sodium Chloride 0.9% 1,000 ml @ 1000 1000 75 mls/hr IV .[id number] [facility] Rx#: [id number] Vancomycin 500 mg In Sodium 100 Chloride 0.9% 100 ml @ 100 mls/ hr IV ONCE ONE Rx#:[id number] Vancomycin 1,000 mg In Sodium 167 Chloride 0.9% 250 ml @ 250 mls/ hr IV Q12H [facility] Rx#:[id number] Vancomycin 1,500 mg In Sodium 500 Chloride 0.9% 500 ml @ 333.3 mls/hr IV ONCE ONE Rx#: [id number] Rocephin 2 gm In Dextrose 5% in 50 50 Water 50 ml @ 100 mls/hr IV DAILY [facility] Rx#:[id number] Oral 300 Output: Void Amount 325 Other: Urine Appearance Clear Urine Color Dark Yellow Dark Yellow Urine Odor Normal Additional findings Additional findings: General -mild acute distress due to back pain Eyes - PERRLA, EOM intact ENT no rhinorrhea, no noticeable or palpable swelling, no redness or rash around throat or on face Neck supple, no JVD, no thyromegaly Respiratory: Lungs -clear, no wheezing or crackles. Cardiovascular - RRR no m/r/g, GI - Normal bowel sounds, no distended, soft. Extremeties - No edema, cyanosis or clubbing. Moderate to severe tenderness over lower back, lumbosacral spinal and left gluteus area Hemo/lymphatic/immune no lymphadenopathy Neurological Alert and oriented x 3, strength and sensation sysmmetrical, no focal neurological deficits. Psychiatry flat affect OBJ DATA Labs CBC & Chem 7: 05/03/20 05:30 05/03/20 05:30 Labs: Abnormal Lab Results 05/03/20 05/03/20 05/02/20 05:30 05:30 14:45 WBC 14.2 H Plt Count 123 L Gran % 92.0 H Lymph % (Auto) 2.8 L Gran # 13.03 H Lymph # (Auto) 0.40 L Bowie # (Auto) ESR 33 H Carbon Dioxide 21 L Calcium 8.3 L C-Reactive Protein Total Protein 5.6 L Globulin U Marijuana (THC) Screen Suspect positive A 05/02/20 05/02/20 12:00 12:00 WBC 18.8 H Plt Count Gran % 89.2 H Lymph % (Auto) 3.9 L Gran # 16.80 H Lymph # (Auto) 0.73 L Bowie # (Auto) 1.23 H ESR Carbon Dioxide Calcium C-Reactive Protein 13.2 H Total Protein Globulin 1.9 L U Marijuana (THC) Screen Meds: Medications Docusate Sodium (Colace) 100 mg PO BID [facility] Last Admin: 05/03/20 08:15 Dose: 100 mg Documented by: Enoxaparin Sodium (Lovenox) 40 mg SQ DAILY [facility] Last Admin: 05/03/20 08:13 Dose: 40 mg Documented by: Gabapentin (Neurontin) 300 mg PO QHS [facility] Last Admin: 05/02/20 21:18 Dose: 300 mg Documented by: Gabapentin (Neurontin) 600 mg PO DAILY [facility] Last Admin: 05/03/20 08:14 Dose: 600 mg Documented by: Hydromorphone HCl (Dilaudid) 1 mg IV Q2HP PRN; Protocol PRN Reason: Per Pain Protocol Hydroxychloroquine Sulfate (Plaquenil) 300 mg PO MoWeFr@0900 [facility] Hydroxychloroquine Sulfate (Plaquenil) 200 mg PO SuTuThSa@0900 [facility] Last Admin: 05/03/20 08:15 Dose: 200 mg Documented by: Sodium Chloride (Sodium Chloride 0.9%) 1,000 mls @ 75 mls/hr IV .[id number] [facility] Last Admin: 05/03/20 12:36 Dose: 75 mls/hr Documented by: Leflunomide (Arava) 20 mg PO QDAY [facility] Last Admin: 05/03/20 08:15 Dose: Not Given Documented by: Lidocaine (Lidoderm) 1 patch TOPICAL DAILY@1000 [facility] Last Admin: 05/03/20 08:15 Dose: 1 patch Documented by: Lidocaine (Lidoderm) 1 patch TOPICAL DAILY@1000 [facility] Last Admin: 05/03/20 08:16 Dose: 1 patch Documented by: Lorazepam (Ativan) 0.5 mg PO BIDP PRN PRN Reason: Anxiety Last Admin: 05/02/20 22:23 Dose: 0.5 mg Documented by: Methocarbamol (Robaxin) 1,500 mg PO HSP PRN PRN Reason: LOWER BACK PAIN Last Admin: 05/02/20 22:23 Dose: 1,500 mg Documented by: Nicotine (Nicoderm) 7 mg TOPICAL DAILY@1000 [facility] Last Admin: 05/03/20 09:55 Dose: 7 mg Documented by: Promethazine HCl (Phenergan) 12.5 mg IV Q8HP PRN PRN Reason: Nausea And Vomiting Senna (Senokot) 2 tab PO HS [facility] Last Admin: 05/02/20 21:18 Dose: 2 tab Documented by: Sodium Chloride (Saline Flush) 10 ml IV Q8 [facility] Last Admin: 05/03/20 05:57 Dose: Not Given Documented by: Tramadol HCl (Ultram) 50 mg PO Q6HP PRN PRN Reason: Pain Last Admin: 05/03/20 11:21 Dose: 50 mg Documented by: Vitamin D (Vitamin D3) 3,000 unit PO DAILY [facility] Last Admin: 05/03/20 08:13 Dose: 3,000 unit Documented by: Zolpidem Tartrate (Ambien) 2.5 mg PO HSP PRN PRN Reason: Insomnia A/P Narrative A/P Narrative: 1. Complicated MSSA bacteremia 2. Acute phlegmon, left psoas muscle K68. 12 MRI showed possible acute phlegmon left psoas muscle. IR Dr. Stone and ID Dr. Powers were consulted, really appreciate it. The patient is on immunosuppressant due to RA MRSA screening - negative Urine drug screening - positive for marijana Blood culture showed postive for MSSA As per Dr. Powers, - Stop IV Vanc and IV Ceftriaxone - Start IV Cefazolin 2 gm q8 hrs - TTE - repeat blood Cx every other day until neg for 48 hrs. Once neg for 48 hrs, a PICC line can be placed - agree with IR, CT-guided aspiration of left psoas muscle swelling. Send aspirate for cell count, GS and C/S 3. Hx of spinal stenosis, s/p lumbar spinal fusion 4. Hx of radiculopathy, lumbosacral 5. 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 RA As per patient, she has RA. Continue home medication leflunomide 20 mg tablet daily 8. Current smoker Smoking cessation counseling Nicotine patch 9. DVT prophylaxis: Lovenox 10. CODE STATUS: Patient Access Associate Spent With Patient Time: Total time spent is greater than 50% in coordination of care (as documented) at patient's floor/unit and/or counseling patient: QUALITY VTE Deep Vein Thrombosis/Pulmonary Embolism Present on Admission: No
[2020-05-03] MEDS ORDERED: ceFAZolin 2 GM in DEXTROSE 5% IN WATER 50 ML IV SCH (13:45)
[2020-05-03] MEDS: ceFAZolin 1 GM VIAL IV SCH ×2 (13:59→21:45)
[2020-05-03 14:13] LABS: Basophils # (Auto) 0.01 K/mcL (0.00-0.30); Basophils % (Auto) 0.1 % (0.0-2.0); Eosinophils # (Auto) 0.12 K/mcL (0.00-0.70); Eosinophils % (Auto) 0.9 % (0.0-7.0); Granulocytes % (Auto) 94.4 % (38.0-78.0); Hematocrit 38.2 % (34.1-44.9); Hemoglobin 12.4 g/dL (11.2-15.7); Lymphocytes # (Auto) 0.27 K/mcL (1.50-4.80); Mean Cell Volume 97.2 fL (80.0-100.0); Mean Corpuscular HGB Conc 32.5 g/dL (31.0-36.0); Mean Platelet Volume 9.2 fL (7.4-10.4); Monocytes # (Auto) 0.36 K/mcL (0.10-0.90); Monocytes % (Auto) 2.6 % (1.0-12.0); Platelet Count 130 K/mcL (140-440); RBC 3.93 M/mcL (3.59-5.38); Red Cell Distribution Width 12.6 % (11.5-14.5); WBC 13.6 K/mcL (4.50-11.00)
[2020-05-03 14:30] LABS: ALT/SGPT 17 U/l (0-40); AST/SGOT 21 U/l (0-37); Albumin 3.5 gm/dL (3.2-5.2); Albumin/Globulin Ratio 1.4 (1.0-2.3); Alkaline Phosphatase 83 U/L (39-117); Bilirubin,Total 0.4 mg/dL (0.0-1.0); Blood Urea Nitrogen 13 mg/dl (6-20); Calcium 8.3 mg/dl (8.6-10.4); Carbon Dioxide 22 mmol/L (22-30); Chloride 98 mmol/L (96-108); Globulin 2.5 gm/dL (2.2-3.7); Glomerular Filtration Rate 98; Glucose 126 mg/dL (70-105)
[2020-05-03] MEDS: SENNOSIDES 1 TABLET PO SCH (20:54)
[2020-05-03] MEDS: METHOCARBAMOL 750 MG TABLET PO PRN (20:54)
[2020-05-03] MEDS: LORazepam 0.5 MG TABLET PO PRN (21:45)
[2020-05-04] MEDS: HYDROmorphone 0.5 MG/0.5 ML SYRINGE IV PRN ×11 (01:09→23:51)
[2020-05-04] MEDS: 0.9 % SODIUM CHLORIDE 1,000 ML IV SCH ×3 (02:51→16:26)
[2020-05-04] MEDS: traMADol 50 MG TABLET PO PRN ×3 (02:54→18:31)
[2020-05-04] MEDS: ceFAZolin 1 GM VIAL IV SCH ×3 (05:28→21:29)
[2020-05-04] MEDS: 0.9 % SODIUM CHLORIDE 10 ML SYRINGE IV SCH ×3 (05:29→20:26)
[2020-05-04] MEDS: DOCUSATE SODIUM 100 MG CAPSULE PO SCH ×2 (07:58→20:26)
[2020-05-04] MEDS: GABAPENTIN 300 MG CAPSULE PO SCH ×2 (07:58→20:26)
[2020-05-04] MEDS: VITAMIN D3 1,000 UNIT TABLET PO SCH (07:58)
[2020-05-04] MEDS: ENOXAPARIN 40 MG/0.4 ML SYRINGE SQ SCH (07:59)
[2020-05-04] MEDS: HYDROXYCHLOROQUINE 200 MG TABLET PO SCH (07:59)
[2020-05-04] MEDS: LEFLUNOMIDE 20 MG TABLET PO SCH (08:01)
[2020-05-04] MEDS: NICOTINE 7 MG PATCH TOPICAL SCH (09:18)
[2020-05-04] MEDS: LIDOCAINE PATCH TOPICAL SCH ×2 (09:18)
[2020-05-04 09:50] LABS: Basophils # (Auto) 0.02 K/mcL (0.00-0.30); Basophils % (Auto) 0.2 % (0.0-2.0); Eosinophils # (Auto) 0.16 K/mcL (0.00-0.70); Eosinophils % (Auto) 1.7 % (0.0-7.0); Granulocytes % (Auto) 88.1 % (38.0-78.0); Hematocrit 32.4 % (34.1-44.9); Lymphocytes # (Auto) 0.37 K/mcL (1.50-4.80); Lymphocytes % (Auto) 3.9 % (15.5-49.0); Mean Platelet Volume 9.2 fL (7.4-10.4); Monocytes # (Auto) 0.58 K/mcL (0.10-0.90); Monocytes % (Auto) 6.1 % (1.0-12.0); Platelet Count 115 K/mcL (140-440); RBC 3.41 M/mcL (3.59-5.38); Red Cell Distribution Width 12.6 % (11.5-14.5); WBC 9.5 K/mcL (4.50-11.00)
[2020-05-04] MEDS: LORazepam 0.5 MG TABLET PO PRN ×2 (10:28→21:29)
[2020-05-04] MEDS: KETOROLAC 15 MG/ML VIAL IV PRN ×2 (10:28→18:32)
--- NOTE | 2020-05-04 10:33 | Internal Med Progress Note ---
SUBJECTIVE Subjective Patient information: Note initiated : 05/04/20 at 10:26 am Service Date, if different from initiated Date: [] Patient: Nita Antonio a 54 y/o F admitted on 05/02/20 for Lower Back Pain. Chief Complaint: [] Interval History: Ms. 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 As per patient, patient has been having lower back pain since 11 years old. But she has been feeling a different lower back pain since yesterday 12 noon. The pain is most severe and radiated to her upper back and left thigh. The pain is constant and 10 out of 10. She also complains of nausea and fever. She vomited once today. Otherwise she denies headache, dizziness, chest pain, abdominal pain, dysuria, cough or shortness of breath. Denies urinary or bowel incontinence. Denies focal numbness or weakness. No recent travel or sick contact. Patient admits she is a current smoker. She also states that she has RA. 05/03 Pt does not feel well and feels cold. Blood culture showed GPC - MSSA. ID Dr. Powers saw pt today. Really apprecaite it. As per Dr. Powers, - Stop IV Vanc and IV Ceftriaxone - Start IV Cefazolin 2 gm q8 hrs - TTE - repeat blood Cx every other day until neg for 48 hrs. Once neg for 48 hrs, a PICC line can be placed - agree with IR, CT-guided aspiration of left psoas muscle swelling. Send aspirate for cell count, GS and C/S 05/04 Pt does not feel well and still complains of the pain. But patient no longer has fever and leukocytosis is resolved today. Repeat blood culture still positive. Will repeat blood culture tomorrow Discussed with radiologist Dr. Stone who suggested CT pelvis with oral and IV contrast tomorrow. Continue IV cefazolin Review of Systems All systems: reviewed and no additional remarkable complaints except as stated Constitutional Vitals: Vital Signs Temp Pulse Resp BP Pulse Ox 98.7 F 85 16 124/73 95 05/04/20 08:00 05/04/20 08:00 05/04/20 08:00 05/04/20 08:00 05/04/20 08:00 Period Temp Pulse Resp BP Sys/Sparks Pulse Ox Last 24 Hr 98.5 F-99.4 F 82-87 12-18 116-135/67-83 91-96 Intake and Output 05/03/20 05/04/20 05/04/20 21:59 05:59 13:59 Intake Total 400 1483 Output Total 175 375 Balance 225 1108 Weight 60.781 kg Intake & Output: Intake & Output 05/03/20 05/04/20 05/04/20 21:59 05:59 13:59 Intake Total 400 1483 Output Total 175 375 Balance 225 1108 Weight 60.781 kg Intake: IV 1083 Sodium Chloride 0.9% 1,000 ml @ 1000 75 mls/hr IV .[id number] [facility] Rx#: [id number] Vancomycin 1,000 mg In Sodium 83 Chloride 0.9% 250 ml @ 250 mls/ hr IV Q12H [facility] Rx#:[id number] Oral 400 400 Output: Void Amount 175 375 Other: Urine Appearance Clear Urine Color Tea Colored Urine Odor Normal Additional findings Additional findings: mild acute distress due to back pain Eyes - PERRLA, EOM intact ENT no rhinorrhea, no noticeable or palpable swelling, no redness or rash around throat or on face Neck supple, no JVD, no thyromegaly Respiratory: Lungs -clear, no wheezing or crackles. Cardiovascular - RRR no m/r/g, GI - Normal bowel sounds, no distended, soft. Extremeties - No edema, cyanosis or clubbing. Moderate to severe tenderness ove r lower back, lumbosacral spinal and left gluteus area Hemo/lymphatic/immune no lymphadenopathy Neurological Alert and oriented x 3, strength and sensation sysmmetrical, no focal neurological deficits. Psychiatry flat affect OBJ DATA Labs CBC & Chem 7: 05/04/20 09:20 05/03/20 13:32 Labs: Abnormal Lab Results 05/04/20 05/03/20 05/03/20 09:20 13:32 13:32 WBC 13.6 H RBC 3.41 L Hgb 11.0 L Hct 32.4 L Plt Count 115 L 130 L Gran % 88.1 H 94.4 H Lymph % (Auto) 3.9 L 2.0 L Gran # 8.33 H 12.88 H Lymph # (Auto) 0.37 L 0.27 L [place] # (Auto) ESR Carbon Dioxide Glucose 126 H Calcium 8.3 L C-Reactive Protein Total Protein Globulin U Marijuana (THC) Screen 05/03/20 05/03/20 05/02/20 05:30 05:30 14:45 WBC 14.2 H RBC Hgb Hct Plt Count 123 L Gran % 92.0 H Lymph % (Auto) 2.8 L Gran # 13.03 H Lymph # (Auto) 0.40 L [place] # (Auto) ESR 33 H Carbon Dioxide 21 L Glucose Calcium 8.3 L C-Reactive Protein Total Protein 5.6 L Globulin U Marijuana (THC) Screen Suspect positive A 05/02/20 05/02/20 12:00 12:00 WBC 18.8 H RBC Hgb Hct Plt Count Gran % 89.2 H Lymph % (Auto) 3.9 L Gran # 16.80 H Lymph # (Auto) 0.73 L [place] # (Auto) 1.23 H ESR Carbon Dioxide Glucose Calcium C-Reactive Protein 13.2 H Total Protein Globulin 1.9 L U Marijuana (THC) Screen Meds: Medications Acetaminophen (Tylenol) 650 mg PO Q6HP PRN; Protocol PRN Reason: Per Pain Protocol/Fever > 101 Cefazolin Sodium (Ancef) 2 gm IV Q8H [facility] Last Admin: 05/04/20 05:28 Dose: 2 gm Documented by: Docusate Sodium (Colace) 100 mg PO BID [facility] Last Admin: 05/04/20 07:58 Dose: 100 mg Documented by: Enoxaparin Sodium (Lovenox) 40 mg SQ DAILY [facility] Last Admin: 05/04/20 07:59 Dose: 40 mg Documented by: Gabapentin (Neurontin) 300 mg PO QHS [facility] Last Admin: 05/03/20 20:55 Dose: 300 mg Documented by: Gabapentin (Neurontin) 600 mg PO DAILY [facility] Last Admin: 05/04/20 07:58 Dose: 600 mg Documented by: Hydromorphone HCl (Dilaudid) 1 mg IV Q2HP PRN; Protocol PRN Reason: Per Pain Protocol Last Admin: 05/04/20 10:15 Dose: 1 mg Documented by: Hydroxychloroquine Sulfate (Plaquenil) 300 mg PO MoWeFr@0900 [facility] Hydroxychloroquine Sulfate (Plaquenil) 200 mg PO SuTuThSa@0900 [facility] Last Admin: 05/04/20 07:59 Dose: 200 mg Documented by: Sodium Chloride (Sodium Chloride 0.9%) 1,000 mls @ 75 mls/hr IV .[id number] [facility] Last Admin: 05/04/20 02:51 Dose: 75 mls/hr Documented by: Ketorolac Tromethamine (Toradol) 15 mg IV Q8HP PRN PRN Reason: Per Pain Protocol Stop: 05/06/20 10:20 Leflunomide (Arava) 20 mg PO QDAY [facility] Last Admin: 05/04/20 08:01 Dose: Not Given Documented by: Lidocaine (Lidoderm) 1 patch TOPICAL DAILY@1000 [facility] Last Admin: 05/04/20 09:18 Dose: 1 patch Documented by: Lidocaine (Lidoderm) 1 patch TOPICAL DAILY@1000 [facility] Last Admin: 05/04/20 09:18 Dose: 1 patch Documented by: Lorazepam (Ativan) 0.5 mg PO BIDP PRN PRN Reason: Anxiety Last Admin: 05/03/20 21:45 Dose: 0.5 mg Documented by: Methocarbamol (Robaxin) 1,500 mg PO HSP PRN PRN Reason: LOWER BACK PAIN Last Admin: 05/03/20 20:54 Dose: 1,500 mg Documented by: Nicotine (Nicoderm) 7 mg TOPICAL DAILY@1000 [facility] Last Admin: 05/04/20 09:18 Dose: 7 mg Documented by: Promethazine HCl (Phenergan) 12.5 mg IV Q8HP PRN PRN Reason: Nausea And Vomiting Senna (Senokot) 2 tab PO HS [facility] Last Admin: 05/03/20 20:54 Dose: 2 tab Documented by: Sodium Chloride (Saline Flush) 10 ml IV Q8 [facility] Last Admin: 05/04/20 05:29 Dose: Not Given Documented by: Tramadol HCl (Ultram) 50 mg PO Q6HP PRN PRN Reason: Pain Last Admin: 05/04/20 09:18 Dose: 50 mg Documented by: Vitamin D (Vitamin D3) 3,000 unit PO DAILY [facility] Last Admin: 05/04/20 07:58 Dose: 3,000 unit Documented by: Zolpidem Tartrate (Ambien) 2.5 mg PO HSP PRN PRN Reason: Insomnia A/P Narrative A/P Narrative: 1. Complicated MSSA bacteremia 2. Acute phlegmon, left psoas muscle K68. 12 MRI showed possible acute phlegmon left psoas muscle. IR Dr. Stone and ID Dr. Powers were consulted, really appreciate it. The patient is on immunosuppressant due to RA MRSA screening - negative Urine drug screening - positive for marijana Blood culture showed postive for MSSA As per Dr. Powers, - Stop IV Vanc and IV Ceftriaxone - Start IV Cefazolin 2 gm q8 hrs - TTE - report pending - repeat blood Cx every other day until neg for 48 hrs. Once neg for 48 hrs, a PICC line can be placed Repeat blood culture still positive. Will repeat blood culture tomorrow Discussed with radiologist Dr. Stone who will not perform any procedure at this moment and instead he suggested CT pelvis with oral and IV contrast tomorrow. 3. Hx of spinal stenosis, s/p lumbar spinal fusion 4. Hx of radiculopathy, lumbosacral 5. 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 RA As per patient, she has RA. Continue home medication leflunomide 20 mg tablet daily 8. Current smoker Smoking cessation counseling Nicotine patch 9. DVT prophylaxis: Lovenox 10. 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
[2020-05-04 10:42] LABS: ALT/SGPT 15 U/l (0-40); AST/SGOT 21 U/l (0-37); Albumin 3.7 gm/dL (3.2-5.2); Albumin/Globulin Ratio 1.5 (1.0-2.3); Alkaline Phosphatase 91 U/L (39-117); Bilirubin,Total 0.4 mg/dL (0.0-1.0); Blood Urea Nitrogen 10 mg/dl (6-20); Calcium 8.7 mg/dl (8.6-10.4); Carbon Dioxide 24 mmol/L (22-30); Chloride 100 mmol/L (96-108); Globulin 2.4 gm/dL (2.2-3.7); Glomerular Filtration Rate 103; Glucose 97 mg/dL (70-105)
[2020-05-04] MEDS: SENNOSIDES 1 TABLET PO SCH (20:26)
[2020-05-04] MEDS: METHOCARBAMOL 750 MG TABLET PO PRN (21:29)
[2020-05-05] MEDS: 0.9 % SODIUM CHLORIDE 1,000 ML IV SCH ×3 (01:44→15:03)
[2020-05-05] MEDS: traMADol 50 MG TABLET PO PRN ×3 (02:05→20:26)
[2020-05-05] MEDS: HYDROmorphone 0.5 MG/0.5 ML SYRINGE IV PRN ×3 (02:06→06:07)
[2020-05-05] MEDS: KETOROLAC 15 MG/ML VIAL IV PRN ×2 (04:07→12:16)
[2020-05-05] MEDS: 0.9 % SODIUM CHLORIDE 10 ML SYRINGE IV SCH ×3 (05:06→20:27)
[2020-05-05] MEDS: ceFAZolin 1 GM VIAL IV SCH ×3 (05:25→20:33)
[2020-05-05 06:24] LABS: Basophils # (Auto) 0.02 K/mcL (0.00-0.30); Basophils % (Auto) 0.3 % (0.0-2.0); Eosinophils # (Auto) 0.13 K/mcL (0.00-0.70); Eosinophils % (Auto) 1.6 % (0.0-7.0); Granulocytes % (Auto) 81.5 % (38.0-78.0); Hematocrit 31.9 % (34.1-44.9); Hemoglobin 10.5 g/dL (11.2-15.7); Lymphocytes % (Auto) 7.6 % (15.5-49.0); Mean Cell Volume 95.5 fL (80.0-100.0); Mean Corpuscular HGB Conc 32.9 g/dL (31.0-36.0); Monocytes # (Auto) 0.71 K/mcL (0.10-0.90); Platelet Count 116 K/mcL (140-440); RBC 3.34 M/mcL (3.59-5.38); Red Cell Distribution Width 12.5 % (11.5-14.5); WBC 7.9 K/mcL (4.50-11.00)
[2020-05-05 06:51] LABS: ALT/SGPT 11 U/l (0-40); AST/SGOT 20 U/l (0-37); Albumin/Globulin Ratio 1.2 (1.0-2.3); Alkaline Phosphatase 94 U/L (39-117); Bilirubin,Total 0.4 mg/dL (0.0-1.0); Blood Urea Nitrogen 8 mg/dl (6-20); Calcium 8.3 mg/dl (8.6-10.4); Carbon Dioxide 22 mmol/L (22-30); Chloride 98 mmol/L (96-108); Globulin 2.5 gm/dL (2.2-3.7); Glomerular Filtration Rate 109; Glucose 84 mg/dL (70-105)
[2020-05-05] MEDS: VITAMIN D3 1,000 UNIT TABLET PO SCH (09:07)
[2020-05-05] MEDS: DOCUSATE SODIUM 100 MG CAPSULE PO SCH ×2 (09:08→20:26)
[2020-05-05] MEDS: GABAPENTIN 300 MG CAPSULE PO SCH ×2 (09:09→20:26)
[2020-05-05] MEDS: NICOTINE 7 MG PATCH TOPICAL SCH (09:09)
[2020-05-05] MEDS: LIDOCAINE PATCH TOPICAL SCH ×2 (09:10)
[2020-05-05] MEDS: ENOXAPARIN 40 MG/0.4 ML SYRINGE SQ SCH (09:10)
[2020-05-05] MEDS: LEFLUNOMIDE 20 MG TABLET PO SCH (09:11)
[2020-05-05] MEDS: HYDROmorphone 1 MG/ML SYRINGE IV PRN ×5 (09:12→21:29)
[2020-05-05] MEDS: HYDROXYCHLOROQUINE 200 MG TABLET PO SCH (09:15)
--- NOTE | 2020-05-05 09:49 | Internal Med Progress Note ---
SUBJECTIVE Subjective Patient information: Note initiated : 05/05/20 at 9:46 am Service Date, if different from initiated Date: [] Patient: Nita Antonio a 54 y/o F admitted on 05/02/20 for Lower Back Pain. Chief Complaint: [] Interval History: Ms. 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 As per patient, patient has been having lower back pain since 11 years old. But she has been feeling a different lower back pain since yesterday 12 noon. The pain is most severe and radiated to her upper back and left thigh. The pain is constant and 10 out of 10. She also complains of nausea and fever. She vomited once today. Otherwise she denies headache, dizziness, chest pain, abdominal pain, dysuria, cough or shortness of breath. Denies urinary or bowel incontinence. Denies focal numbness or weakness. No recent travel or sick contact. Patient admits she is a current smoker. She also states that she has RA. 05/03 Pt does not feel well and feels cold. Blood culture showed GPC - MSSA. ID Dr. Powers saw pt today. Really apprecaite it. As per Dr. Powers, - Stop IV Vanc and IV Ceftriaxone - Start IV Cefazolin 2 gm q8 hrs - TTE - repeat blood Cx every other day until neg for 48 hrs. Once neg for 48 hrs, a PICC line can be placed - agree with IR, CT-guided aspiration of left psoas muscle swelling. Send aspirate for cell count, GS and C/S 05/04 Pt does not feel well and still complains of the pain. But patient no longer has fever and leukocytosis is resolved today. Repeat blood culture still positive. Will repeat blood culture tomorrow Discussed with radiologist Dr. Stone who suggested CT pelvis with oral and IV contrast tomorrow. Continue IV cefazolin 05/05 She is fine. But still complains of pain. Vital signs are stable. WBC normal since yesterday Repeat blood culture still positive. Repeated blood culture today CT pelvis with oral and IV contrast was ordered today. Review of Systems All systems: reviewed and no additional remarkable complaints except as stated Constitutional Vitals: Vital Signs Temp Pulse Resp BP Pulse Ox 98.2 F 80 18 141/90 91 05/05/20 07:46 05/05/20 07:46 05/05/20 07:46 05/05/20 07:46 05/05/20 07:46 Period Temp Pulse Resp BP Sys/Sparks Pulse Ox Last 24 Hr 97.2 F-99.1 F 79-100 14-20 123-157/74-90 91-94 Intake and Output 05/04/20 05/05/20 05/05/20 21:59 05:59 13:59 Intake Total 1300 1150 Output Total 250 600 200 Balance 1050 550 -200 Weight 63.82 kg Intake & Output: Intake & Output 05/04/20 05/05/20 05/05/20 21:59 05:59 13:59 Intake Total 1300 1150 Output Total 250 600 200 Balance 1050 550 -200 Weight 63.82 kg Intake: IV 1000 1000 Sodium Chloride 0.9% 1,000 ml @ 1000 1000 75 mls/hr IV .[id number] [facility] Rx#: [id number] Oral 300 150 Output: Urine Catheter Amount 150 Void Amount 100 600 200 Other: Urine Appearance Clear Urine Color Dark Yellow Urine Odor Normal # Voids 2 Additional findings Additional findings: General: No acute distress Eyes - PERRLA, EOM intact ENT no rhinorrhea, no noticeable or palpable swelling, no redness or rash around throat or on face Neck supple, no JVD, no thyromegaly Respiratory: Lungs -clear, no wheezing or crackles. Cardiovascular - RRR no m/r/g, GI - Normal bowel sounds, no distended, soft. Extremeties - No edema, cyanosis or clubbing. Moderate to severe tenderness over lower back, lumbosacral spinal and left gluteus area Hemo/lymphatic/immune no lymphadenopathy Neurological Alert and oriented x 3, strength and sensation sysmmetrical, no focal neurological deficits. Psychiatry flat affect OBJ DATA Labs CBC & Chem 7: 05/05/20 05:15 05/05/20 05:15 Labs: Abnormal Lab Results 05/05/20 05/05/20 05/04/20 05:15 05:15 09:20 WBC RBC 3.34 L 3.41 L Hgb 10.5 L 11.0 L Hct 31.9 L 32.4 L Plt Count 116 L 115 L Gran % 81.5 H 88.1 H Lymph % (Auto) 7.6 L 3.9 L Gran # 8.33 H Lymph # (Auto) 0.60 L 0.37 L [place] # (Auto) ESR Potassium 3.2 L Carbon Dioxide Creatinine 0.5 L Glucose Calcium 8.3 L C-Reactive Protein Total Protein 5.5 L Albumin 3.0 L Globulin U Marijuana (THC) Screen 05/03/20 05/03/20 05/03/20 13:32 13:32 05:30 WBC 13.6 H RBC Hgb Hct Plt Count 130 L Gran % 94.4 H Lymph % (Auto) 2.0 L Gran # 12.88 H Lymph # (Auto) 0.27 L [place] # (Auto) ESR Potassium Carbon Dioxide 21 L Creatinine Glucose 126 H Calcium 8.3 L 8.3 L C-Reactive Protein Total Protein 5.6 L Albumin Globulin U Marijuana (THC) Screen 05/03/20 05/02/20 05/02/20 05:30 14:45 12:00 WBC 14.2 H RBC Hgb Hct Plt Count 123 L Gran % 92.0 H Lymph % (Auto) 2.8 L Gran # 13.03 H Lymph # (Auto) 0.40 L [place] # (Auto) ESR 33 H Potassium Carbon Dioxide Creatinine Glucose Calcium C-Reactive Protein 13.2 H Total Protein Albumin Globulin 1.9 L U Marijuana (THC) Screen Suspect positive A 05/02/20 12:00 WBC 18.8 H RBC Hgb Hct Plt Count Gran % 89.2 H Lymph % (Auto) 3.9 L Gran # 16.80 H Lymph # (Auto) 0.73 L [place] # (Auto) 1.23 H ESR Potassium Carbon Dioxide Creatinine Glucose Calcium C-Reactive Protein Total Protein Albumin Globulin U Marijuana (THC) Screen Meds: Medications Acetaminophen (Tylenol) 650 mg PO Q6HP PRN; Protocol PRN Reason: Per Pain Protocol/Fever > 101 Cefazolin Sodium (Ancef) 2 gm IV Q8H [facility] Last Admin: 05/05/20 05:25 Dose: 2 gm Documented by: Docusate Sodium (Colace) 100 mg PO BID [facility] Last Admin: 05/05/20 09:08 Dose: 100 mg Documented by: Enoxaparin Sodium (Lovenox) 40 mg SQ DAILY [facility] Last Admin: 05/05/20 09:10 Dose: 40 mg Documented by: Gabapentin (Neurontin) 300 mg PO QHS [facility] Last Admin: 05/04/20 20:26 Dose: 300 mg Documented by: Gabapentin (Neurontin) 600 mg PO DAILY [facility] Last Admin: 05/05/20 09:09 Dose: 600 mg Documented by: Hydromorphone HCl (Dilaudid) 1 mg IV Q2HP PRN; Protocol PRN Reason: Per Pain Protocol Last Admin: 05/05/20 09:12 Dose: 1 mg Documented by: Hydroxychloroquine Sulfate (Plaquenil) 300 mg PO MoWeFr@0900 [facility] Last Admin: 05/05/20 09:15 Dose: 300 mg Documented by: Hydroxychloroquine Sulfate (Plaquenil) 200 mg PO SuTuThSa@0900 [facility] Last Admin: 05/04/20 07:59 Dose: 200 mg Documented by: Sodium Chloride (Sodium Chloride 0.9%) 1,000 mls @ 75 mls/hr IV .[id number] [facility] Last Admin: 05/05/20 06:07 Dose: 75 mls/hr Documented by: Ketorolac Tromethamine (Toradol) 15 mg IV Q8HP PRN PRN Reason: Per Pain Protocol Stop: 05/06/20 10:20 Last Admin: 05/05/20 04:07 Dose: 15 mg Documented by: Leflunomide (Arava) 20 mg PO QDAY [facility] Last Admin: 05/05/20 09:11 Dose: Not Given Documented by: Lidocaine (Lidoderm) 1 patch TOPICAL DAILY@1000 [facility] Last Admin: 05/05/20 09:10 Dose: 1 patch Documented by: Lidocaine (Lidoderm) 1 patch TOPICAL DAILY@1000 [facility] Last Admin: 05/05/20 09:10 Dose: 1 patch Documented by: Lorazepam (Ativan) 0.5 mg PO BIDP PRN PRN Reason: Anxiety Last Admin: 05/04/20 21:29 Dose: 0.5 mg Documented by: Methocarbamol (Robaxin) 1,500 mg PO HSP PRN PRN Reason: LOWER BACK PAIN Last Admin: 05/04/20 21:29 Dose: 1,500 mg Documented by: Nicotine (Nicoderm) 7 mg TOPICAL DAILY@1000 [facility] Last Admin: 05/05/20 09:09 Dose: 7 mg Documented by: Potassium Chloride (Kdur) 40 meq PO BIDCC [facility] Stop: 05/06/20 08:01 Promethazine HCl (Phenergan) 12.5 mg IV Q8HP PRN PRN Reason: Nausea And Vomiting Senna (Senokot) 2 tab PO HS [facility] Last Admin: 05/04/20 20:26 Dose: 2 tab Documented by: Sodium Chloride (Saline Flush) 10 ml IV Q8 [facility] Last Admin: 05/05/20 05:06 Dose: Not Given Documented by: Tramadol HCl (Ultram) 50 mg PO Q6HP PRN PRN Reason: Pain Last Admin: 05/05/20 02:05 Dose: 50 mg Documented by: Vitamin D (Vitamin D3) 3,000 unit PO DAILY [facility] Last Admin: 05/05/20 09:07 Dose: 3,000 unit Documented by: Zolpidem Tartrate (Ambien) 2.5 mg PO HSP PRN PRN Reason: Insomnia A/P Narrative A/P Narrative: 1. Complicated MSSA bacteremia 2. Acute phlegmon, left psoas muscle K68. 12 MRI showed possible acute phlegmon left psoas muscle. IR Dr. Stone and ID Dr. Powers were consulted, really appreciate it. The patient is on immunosuppressants due to RA MRSA screening - negative Urine drug screening - positive for marijuana Blood culture showed postive for MSSA As per Dr. Powers, continue IV Cefazolin 2 gm q8 hrs - TTE - report pending - repeat blood Cx every other day until neg for 48 hrs. Once neg for 48 hrs, a PICC line can be placed repeat blood culture today CT pelvis with oral and IV contrast today. 3. Hx of spinal stenosis, s/p lumbar spinal fusion 4. Hx of radiculopathy, lumbosacral 5. 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 RA As per patient, she has RA. Continue home medication leflunomide 20 mg tablet daily 8. Current smoker Smoking cessation counseling Nicotine patch 9. DVT prophylaxis: Lovenox 10. 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
[2020-05-05] MEDS: LORazepam 0.5 MG TABLET PO PRN (10:57)
[2020-05-05] MEDS ORDERED: IOPAMIDOL 100 ML BOTTLE IV ONE (11:16)
--- NOTE | 2020-05-05 12:24 | Cat Scan Report ---
CLINICAL INFORMATION: Left flank pain COMPARISON: Chest abdomen and pelvic CT 08/22/2017 TECHNIQUE: Following enteric contrast, 80 cc of Isovue-370 were injected intravenously, and 60 seconds later, 0.625 mm helical slices were obtained from the mid heart through the subtrochanteric regions. Following reconstruction, 2.5 mm sagittal, coronal and axial reformatted images were processed and reviewed at bone, lung and soft tissue windows. Five minutes later, 0.625 mm helical slices were obtained from the mid heart through the kidneys and viewed at soft tissue windows.The exam was performed using radiation dose optimization techniques including, but not limited to, automated exposure control, adjustment of the mA and/or kV according to patient size and use of iterative reconstruction technique. FINDINGS: Lung bases show small bilateral pleural effusions which are new from prior exam. There is minor scarring and/or bibasilar atelectasis, but no definite infiltrate. Visualized heart is grossly normal. Abdominal images show minimal fatty change within the liver without focal lesion. Minimal periportal edema noted. Gallbladder and bile ducts are normal: CBD is 5 mm. Both kidneys, adrenal glands, spleen, pancreas and aorta including aortic branches are normal in size configuration and attenuation without focal lesion. Pelvic images show hysterectomy changes. Neither ovary is identified - either surgically absent or atrophic. The appendix is surgically absent. The stomach, small and large bowel are grossly normal. No free air or adenopathy. There is a large abscess diffusely throughout the left iliopsoas muscle spanning 15 x 3 cm. Mild inflammation is seen in the adjacent fat. A transverse acute fracture the right ischial tuberosity appreciated. Bilateral hip prostheses are anatomically aligned without loosening or infection. L3-4 anterior/posterior fusion divided by interbody graft pedicle screws and short interbody struts are anatomically aligned. Laminectomy changes also seen at this level. Severe L2-3 degenerative disc disease with multilevel Schmorl's nodes invaginating the adjacent endplates appreciated IMPRESSION: 1. Large (15 x 3 cm) immature abscess in the left iliopsoas muscle belly with surrounding inflammation. 2. Nondisplaced acute transverse fracture - right ischial tuberosity. 3. Small bilateral pleural effusions - new 4. Mild periportal edema typically related to primary hepatocellular inflammation or, less likely, elevated right heart pressures. Please correlate with LFTs Interpreted and Authenticated by: Jim Eli 05/05/20
[2020-05-05] MEDS ORDERED: POTASSIUM CHLORIDE 20 MEQ TABLET PO ONE ×2 (14:10→17:30)
--- NOTE | 2020-05-05 15:59 | Internal Med Progress Note ---
SUBJECTIVE Subjective Patient information: Note initiated : 05/05/20 at 3:57 pm Service Date, if different from initiated Date: [] Patient: Nita Antonio 54 y/o F admitted on 05/02/20 for Lower Back Pain. Chief Complaint: [] Pt feels slightly better. Is able to stand with support and move around using a walker. denied any fever, chills, n/v, diarrhea. Denies any bladder/bowel incontinence. Endorses radiation of pain from left side of back to left thigh. denies any focal weakness such as foot drop. is constipated. Reports that she has about 9 stairs at her home which are steep and might be difficult to climb. Thinks that rehab might be an acceptable option after discharge if covered by insurance. Constitutional Vitals: Vital Signs Temp Pulse Resp BP Pulse Ox 37.4 C H 84 18 146/84 95 05/05/20 12:00 05/05/20 12:00 05/05/20 12:00 05/05/20 12:00 05/05/20 12:00 Period Temp Pulse Resp BP Sys/Sparks Pulse Ox Last 24 Hr 36.2 C-37.4 C 79-100 14-20 127-157/75-90 91-95 Intake and Output 05/05/20 05/05/20 05/05/20 05:59 13:59 21:59 Intake Total 1150 Output Total 637 163 0834 Balance 550 -600 -1500 Intake & Output: Intake & Output 05/05/20 05/05/20 05/05/20 05:59 13:59 21:59 Intake Total 1150 Output Total 951 392 2503 Balance 550 -600 -1500 Intake: IV 1000 Sodium Chloride 0.9% 1,000 ml @ 1000 75 mls/hr IV .[id number] [facility] Rx#: [id number] Oral 150 Output: Void Amount [id number] Other: Urine Appearance Clear Urine Color Dark Yellow Pale Urine Odor Strong Additional findings Additional findings: ao x 3, in nad whitish discoloration on inside of mouth b/l [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3 L Total Protein 5.5 L Albumin 3.0 L U Marijuana (THC) Screen 05/03/20 05/03/20 05/03/20 13:32 13:32 05:30 WBC 13.6 H RBC Hgb Hct Plt Count 130 L Gran % 94.4 H Lymph % (Auto) 2.0 L Gran # 12.88 H Lymph # (Auto) 0.27 L ESR Potassium Carbon Dioxide 21 L Creatinine Glucose 126 H Calcium 8.3 L 8.3 L Total Protein 5.6 L Albumin U Marijuana (THC) Screen 05/03/20 05/02/20 05:30 14:45 WBC 14.2 H RBC Hgb Hct Plt Count 123 L Gran % 92.0 H Lymph % (Auto) 2.8 L Gran # 13.03 H Lymph # (Auto) 0.40 L ESR 33 H Potassium Carbon Dioxide Creatinine Glucose Calcium Total Protein Albumin U Marijuana (THC) Screen Suspect positive A Meds: Medications Acetaminophen (Tylenol) 650 mg PO Q6HP PRN; Protocol PRN Reason: Per Pain Protocol/Fever > 101 Cefazolin Sodium (Ancef) 2 gm IV Q8H [facility] Last Admin: 05/05/20 15:03 Dose: 2 gm Documented by: Docusate Sodium (Colace) 100 mg PO BID [facility] Last Admin: 05/05/20 09:08 Dose: 100 mg Documented by: Enoxaparin Sodium (Lovenox) 40 mg SQ DAILY [facility] Last Admin: 05/05/20 09:10 Dose: 40 mg Documented by: Gabapentin (Neurontin) 300 mg PO QHS [facility] Last Admin: 05/04/20 20:26 Dose: 300 mg Documented by: Gabapentin (Neurontin) 600 mg PO DAILY [facility] Last Admin: 05/05/20 09:09 Dose: 600 mg Documented by: Hydromorphone HCl (Dilaudid) 1 mg IV Q2HP PRN; Protocol PRN Reason: Per Pain Protocol Last Admin: 05/05/20 15:42 Dose: 1 mg Documented by: Hydroxychloroquine Sulfate (Plaquenil) 300 mg PO MoWeFr@0900 [facility] Last Admin: 05/05/20 09:15 Dose: 300 mg Documented by: Hydroxychloroquine Sulfate (Plaquenil) 200 mg PO SuTuThSa@0900 [facility] Last Admin: 05/04/20 07:59 Dose: 200 mg Documented by: Sodium Chloride (Sodium Chloride 0.9%) 1,000 mls @ 75 mls/hr IV .[id number] [facility] Last Admin: 05/05/20 15:03 Dose: Not Given Documented by: Ketorolac Tromethamine (Toradol) 15 mg IV Q8HP PRN PRN Reason: Per Pain Protocol Stop: 05/06/20 10:20 Last Admin: 05/05/20 12:16 Dose: 15 mg Documented by: Leflunomide (Arava) 20 mg PO QDAY [facility] Last Admin: 05/05/20 09:11 Dose: Not Given Documented by: Lidocaine (Lidoderm) 1 patch TOPICAL DAILY@1000 [facility] Last Admin: 05/05/20 09:10 Dose: 1 patch Documented by: Lidocaine (Lidoderm) 1 patch TOPICAL DAILY@1000 [facility] Last Admin: 05/05/20 09:10 Dose: 1 patch Documented by: Lorazepam (Ativan) 0.5 mg PO BIDP PRN PRN Reason: Anxiety Last Admin: 05/05/20 10:57 Dose: 0.5 mg Documented by: Methocarbamol (Robaxin) 1,500 mg PO HSP PRN PRN Reason: LOWER BACK PAIN Last Admin: 05/04/20 21:29 Dose: 1,500 mg Documented by: Nicotine (Nicoderm) 7 mg TOPICAL DAILY@1000 [facility] Last Admin: 05/05/20 09:09 Dose: 7 mg Documented by: Potassium Chloride (Kdur) 40 meq PO ONCE ONE Stop: 05/05/20 17:31 Promethazine HCl (Phenergan) 12.5 mg IV Q8HP PRN PRN Reason: Nausea And Vomiting Senna (Senokot) 2 tab PO HS PEPE Last Admin: 05/04/20 20:26 Dose: 2 tab Documented by: Sodium Chloride (Saline Flush) 10 ml IV Q8 [facility] Last Admin: 05/05/20 15:03 Dose: 10 ml Documented by: Tramadol HCl (Ultram) 50 mg PO Q6HP PRN PRN Reason: Pain Last Admin: 05/05/20 10:54 Dose: 50 mg Documented by: Vitamin D (Vitamin D3) 3,000 unit PO DAILY [facility] Last Admin: 05/05/20 09:07 Dose: 3,000 unit Documented by: Zolpidem Tartrate (Ambien) 2.5 mg PO HSP PRN PRN Reason: Insomnia A/P Narrative A/P Narrative: A: 1. Complicated MSSA bacteremia: - risk factors: RA on immunosuppressive therapy, MSSA colonization and itchy skin rash (now resolved) - possible portal of entry: skin - no sepsis 2. Left illio-psoas muscle inflammation: sec to infection. concerns for seeding from MSSA - MRI spine s/o early phlegmon formation. CT spine done 05/05 revealed ~ 15 x 8 cm area of inflammation (? immature abscess) , no aspiration done by IR as no liquid pus visualized per Dr Dowling. 3. RA: on leflunomide now - previously received Humira 4. Skin rash: doesnot look infectious as it has been there prior to onset of MSSA bacteremia and pt had been on PO Prednisone for it. One of the common d/d in setting of RA could be Interstitial granulomatous dermatitis. Recommendations: - Continue IV Cefazolin 2 gm q8 hrs - repeat blood Cx every other day until neg for 48 hrs. Once neg for 48 hrs, a PICC line can be placed - anticipate at least 4 weeks of therapy from 1st day of negative blood Cx - Incentive spirometry - CXR tomorrow - Repeat CT t/l spine with contrast in 1 week. In case there is a drainable fluid collection in illiopsoas muscle, agree with CT-guided aspiration of left psoas muscle swelling. Send aspirate for cell count, GS and C/S - Dermatology f/u after discharge for skin rash - Spoke with CM regarding eval for rehab and/or PT after discharge will follow Albino Powers MD Infectious Diseases Time Spent With Patient Time: Total time spent is greater than 50% in coordination of care (as documented) at patient's floor/unit and/or counseling patient: QUALITY VTE Deep Vein Thrombosis/Pulmonary Embolism Present on Admission: No
[2020-05-05] MEDS ORDERED: POTASSIUM CHLORIDE 20 MEQ TABLET PO SCH (17:30)
[2020-05-05] MEDS: SENNOSIDES 1 TABLET PO SCH (20:25)
[2020-05-06] MEDS: HYDROmorphone 1 MG/ML SYRINGE IV PRN ×10 (00:19→23:02)
[2020-05-06] MEDS: 0.9 % SODIUM CHLORIDE 1,000 ML IV SCH ×4 (02:26→23:03)
[2020-05-06] MEDS: KETOROLAC 15 MG/ML VIAL IV PRN (03:01)
[2020-05-06] MEDS: traMADol 50 MG TABLET PO PRN ×3 (03:02→21:54)
[2020-05-06] MEDS: 0.9 % SODIUM CHLORIDE 10 ML SYRINGE IV SCH ×3 (05:29→21:55)
[2020-05-06] MEDS: ceFAZolin 1 GM VIAL IV SCH ×3 (05:29→21:53)
[2020-05-06 07:06] LABS: Basophils # (Auto) 0.02 K/mcL (0.00-0.30); Basophils % (Auto) 0.2 % (0.0-2.0); Eosinophils # (Auto) 0.09 K/mcL (0.00-0.70); Eosinophils % (Auto) 1.1 % (0.0-7.0); Granulocytes % (Auto) 81.2 % (38.0-78.0); Hematocrit 30.4 % (34.1-44.9); Hemoglobin 10.3 g/dL (11.2-15.7); Lymphocytes # (Auto) 0.66 K/mcL (1.50-4.80); Lymphocytes % (Auto) 7.7 % (15.5-49.0); Mean Cell Volume 92.1 fL (80.0-100.0); Mean Corpuscular HGB Conc 33.9 g/dL (31.0-36.0); Mean Platelet Volume 8.9 fL (7.4-10.4); Monocytes # (Auto) 0.84 K/mcL (0.10-0.90); Monocytes % (Auto) 9.8 % (1.0-12.0); Platelet Count 129 K/mcL (140-440); Red Cell Distribution Width 12.2 % (11.5-14.5); WBC 8.6 K/mcL (4.50-11.00)
[2020-05-06 07:45] LABS: ALT/SGPT 9 U/l (0-40); AST/SGOT 19 U/l (0-37); Albumin 3.2 gm/dL (3.2-5.2); Albumin/Globulin Ratio 1.3 (1.0-2.3); Alkaline Phosphatase 75 U/L (39-117); Bilirubin,Total 0.4 mg/dL (0.0-1.0); Blood Urea Nitrogen 8 mg/dl (6-20); Calcium 8.3 mg/dl (8.6-10.4); Carbon Dioxide 24 mmol/L (22-30); Chloride 98 mmol/L (96-108); Globulin 2.4 gm/dL (2.2-3.7); Glomerular Filtration Rate 103; Glucose 96 mg/dL (70-105)
[2020-05-06] MEDS: VITAMIN D3 1,000 UNIT TABLET PO SCH (09:34)
[2020-05-06] MEDS: GABAPENTIN 300 MG CAPSULE PO SCH ×2 (09:35→21:53)
[2020-05-06] MEDS: HYDROXYCHLOROQUINE 200 MG TABLET PO SCH (09:36)
[2020-05-06] MEDS: DOCUSATE SODIUM 100 MG CAPSULE PO SCH ×2 (09:37→21:54)
[2020-05-06] MEDS: ACETAMINOPHEN 325 MG TABLET PO PRN (09:39)
[2020-05-06] MEDS: ENOXAPARIN 40 MG/0.4 ML SYRINGE SQ SCH (09:40)
[2020-05-06] MEDS: LACTULOSE 20 GM/30 ML ORAL.SOL PO PRN (09:40)
--- NOTE | 2020-05-06 09:45 | Internal Med Progress Note ---
SUBJECTIVE Subjective Patient information: Note initiated : 05/06/20 at 9:45 am Service Date, if different from initiated Date: [] Patient: Nita Antonio a 54 y/o F admitted on 05/02/20 for Lower Back Pain. Chief Complaint: [] Interval History: Ms. 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 As per patient, patient has been having lower back pain since 11 years old. But she has been feeling a different lower back pain since yesterday 12 noon. The pain is most severe and radiated to her upper back and left thigh. The pain is constant and 10 out of 10. She also complains of nausea and fever. She vomited once today. Otherwise she denies headache, dizziness, chest pain, abdominal pain, dysuria, cough or shortness of breath. Denies urinary or bowel incontinence. Denies focal numbness or weakness. No recent travel or sick contact. Patient admits she is a current smoker. She also states that she has RA. 05/03 Pt does not feel well and feels cold. Blood culture showed GPC - MSSA. ID Dr. Powers saw pt today. Really apprecaite it. As per Dr. Powers, - Stop IV Vanc and IV Ceftriaxone - Start IV Cefazolin 2 gm q8 hrs - TTE - repeat blood Cx every other day until neg for 48 hrs. Once neg for 48 hrs, a PICC line can be placed - agree with IR, CT-guided aspiration of left psoas muscle swelling. Send aspirate for cell count, GS and C/S 05/04 Pt does not feel well and still complains of the pain. But patient no longer has fever and leukocytosis is resolved today. Repeat blood culture still positive. Will repeat blood culture tomorrow Discussed with radiologist Dr. Stone who suggested CT pelvis with oral and IV contrast tomorrow. Continue IV cefazolin 05/05 She is fine. But still complains of pain. Vital signs are stable. WBC normal since yesterday Repeat blood culture still positive. Repeated blood culture today CT pelvis with oral and IV contrast was ordered today. 05/06 General speaking pt feels better. still has pain but the pain is controlled. She asks for toradol and ibuprofen. I explained to her that she can not have these meds for long. CT abd and pelvis yesterday showed Large (15 x 3 cm) immature abscess in the left iliopsoas muscle belly with surrounding inflammation. nondisplaced acute transverse fracture - right ischial tuberosity. Spoke to radiology Dr. Eli, who does not think she should have any procedure at this moment but needs to repeat CT abd and pelvis on Tuesday. Repeat blood culture was negative yesterday and today so far. If today still negative, will replace PICC line tomorrow. Review of Systems All systems: reviewed and no additional remarkable complaints except as stated Constitutional Vitals: Vital Signs Temp Pulse Resp BP Pulse Ox 98.1 F 90 18 139/94 96 05/06/20 07:29 05/06/20 07:29 05/06/20 07:29 05/06/20 07:29 05/06/20 07:29 Period Temp Pulse Resp BP Sys/Sparks Pulse Ox Last 24 Hr 98.1 F-99.4 F 76-93 18-22 137-173/84-97 95-98 Intake and Output 05/05/20 05/06/20 05/06/20 21:59 05:59 13:59 Intake Total 1840 700 Output Total 1500 1050 Balance 340 -350 Weight 60.328 kg Intake & Output: Intake & Output 05/05/20 05/06/20 05/06/20 21:59 05:59 13:59 Intake Total 1840 700 Output Total 1500 1050 Balance 340 -350 Weight 60.328 kg Intake: IV 1000 Sodium Chloride 0.9% 1,000 ml @ 1000 75 mls/hr IV .[id number] [facility] Rx#: [id number] Oral 840 700 Output: Void Amount 1500 1050 Other: Meal Dinner Percent of Meal Consumed 75% Feeding Ability Independent Urine Appearance Clear Clear Urine Color Pale Bright Yellow Urine Odor Normal # Voids 1 Additional findings Additional findings: General: No acute distress Eyes - PERRLA, EOM intact ENT no rhinorrhea, no noticeable or palpable swelling, no redness or rash around throat or on face Neck supple, no JVD, no thyromegaly Respiratory: Lungs -clear, no wheezing or crackles. Cardiovascular - RRR no m/r/g, GI - Normal bowel sounds, no distended, soft. Extremeties - No edema, cyanosis or clubbing. Moderate to severe tenderness over lower back, lumbosacral spinal and left gluteus area Hemo/lymphatic/immune no lymphadenopathy Neurological Alert and oriented x 3, strength and sensation sysmmetrical, no focal neurological deficits. Psychiatry flat affect OBJ DATA Labs CBC & Chem 7: 05/06/20 05:55 05/06/20 05:55 Labs: Abnormal Lab Results 05/06/20 05/06/20 05/05/20 05:55 05:55 05:15 WBC RBC 3.30 L Hgb 10.3 L Hct 30.4 L Plt Count 129 L Gran % 81.2 H Lymph % (Auto) 7.7 L Gran # Lymph # (Auto) 0.66 L Potassium 3.2 L Creatinine 0.5 L Glucose Calcium 8.3 L 8.3 L Total Protein 5.6 L 5.5 L Albumin 3.0 L 05/05/20 05/04/20 05/03/20 05:15 09:20 13:32 WBC RBC 3.34 L 3.41 L Hgb 10.5 L 11.0 L Hct 31.9 L 32.4 L Plt Count 116 L 115 L Gran % 81.5 H 88.1 H Lymph % (Auto) 7.6 L 3.9 L Gran # 8.33 H Lymph # (Auto) 0.60 L 0.37 L Potassium Creatinine Glucose 126 H Calcium 8.3 L Total Protein Albumin 05/03/20 13:32 WBC 13.6 H RBC Hgb Hct Plt Count 130 L Gran % 94.4 H Lymph % (Auto) 2.0 L Gran # 12.88 H Lymph # (Auto) 0.27 L Potassium Creatinine Glucose Calcium Total Protein Albumin Meds: Medications Acetaminophen (Tylenol) 650 mg PO Q6HP PRN; Protocol PRN Reason: Per Pain Protocol/Fever > 101 Last Admin: 05/06/20 09:39 Dose: 650 mg Documented by: Cefazolin Sodium (Ancef) 2 gm IV Q8H [facility] Last Admin: 05/06/20 05:29 Dose: 2 gm Documented by: Docusate Sodium (Colace) 100 mg PO BID [facility] Last Admin: 05/06/20 09:37 Dose: 100 mg Documented by: Enoxaparin Sodium (Lovenox) 40 mg SQ DAILY [facility] Last Admin: 05/06/20 09:40 Dose: 40 mg Documented by: Gabapentin (Neurontin) 300 mg PO QHS [facility] Last Admin: 05/05/20 20:26 Dose: 300 mg Documented by: Gabapentin (Neurontin) 600 mg PO DAILY [facility] Last Admin: 05/06/20 09:35 Dose: 600 mg Documented by: Hydromorphone HCl (Dilaudid) 1 mg IV Q2HP PRN; Protocol PRN Reason: Per Pain Protocol Last Admin: 05/06/20 09:40 Dose: 1 mg Documented by: Hydroxychloroquine Sulfate (Plaquenil) 300 mg PO MoWeFr@0900 [facility] Last Admin: 05/05/20 09:15 Dose: 300 mg Documented by: Hydroxychloroquine Sulfate (Plaquenil) 200 mg PO SuTuThSa@0900 [facility] Last Admin: 05/06/20 09:36 Dose: 200 mg Documented by: Sodium Chloride (Sodium Chloride 0.9%) 1,000 mls @ 75 mls/hr IV .[id number] [facility] Last Admin: 05/06/20 09:32 Dose: 75 mls/hr Documented by: Ketorolac Tromethamine (Toradol) 15 mg IV Q8HP PRN PRN Reason: Per Pain Protocol Stop: 05/06/20 10:20 Last Admin: 05/06/20 03:01 Dose: 15 mg Documented by: Lactulose (Cephulac) 20 gm PO DAILYP PRN PRN Reason: constipation Last Admin: 05/06/20 09:40 Dose: 20 gm Documented by: Leflunomide (Arava) 20 mg PO QDAY [facility] Last Admin: 05/05/20 09:11 Dose: Not Given Documented by: Lidocaine (Lidoderm) 1 patch TOPICAL DAILY@1000 [facility] Last Admin: 05/05/20 09:10 Dose: 1 patch Documented by: Lidocaine (Lidoderm) 1 patch TOPICAL DAILY@1000 [facility] Last Admin: 05/05/20 09:10 Dose: 1 patch Documented by: Lorazepam (Ativan) 0.5 mg PO BIDP PRN PRN Reason: Anxiety Last Admin: 05/05/20 10:57 Dose: 0.5 mg Documented by: Methocarbamol (Robaxin) 1,500 mg PO HSP PRN PRN Reason: LOWER BACK PAIN Last Admin: 05/04/20 21:29 Dose: 1,500 mg Documented by: Nicotine (Nicoderm) 7 mg TOPICAL DAILY@1000 [facility] Last Admin: 05/05/20 09:09 Dose: 7 mg Documented by: Promethazine HCl (Phenergan) 12.5 mg IV Q8HP PRN PRN Reason: Nausea And Vomiting Last Admin: 05/05/20 17:57 Dose: 12.5 mg Documented by: Senna (Senokot) 2 tab PO HS [facility] Last Admin: 05/05/20 20:25 Dose: 2 tab Documented by: Sodium Chloride (Saline Flush) 10 ml IV Q8 [facility] Last Admin: 05/06/20 05:29 Dose: 10 ml Documented by: Tramadol HCl (Ultram) 50 mg PO Q6HP PRN PRN Reason: Pain Last Admin: 05/06/20 09:38 Dose: 50 mg Documented by: Vitamin D (Vitamin D3) 3,000 unit PO DAILY [facility] Last Admin: 05/06/20 09:34 Dose: 3,000 unit Documented by: Zolpidem Tartrate (Ambien) 2.5 mg PO HSP PRN PRN Reason: Insomnia A/P Narrative A/P Narrative: A/P Narrative: 1. Complicated MSSA bacteremia 2. Acute phlegmon, left psoas muscle K68. 12 MRI showed possible acute phlegmon left psoas muscle. IR Dr. Stone/Sreedhar and ID Dr. Powers were consulted, really appreciate it. The patient is on immunosuppressants due to RA MRSA screening - negative Urine drug screening - positive for marijuana Blood culture showed postive for MSSA TTE - no evidence of endocarditis CT abd and pelvis yesterday showed Large (15 x 3 cm) immature abscess in the left iliopsoas muscle belly with surrounding inflammation. Spoke to radiology Dr. Eli, who does not think she should have any procedure at this moment but needs to repeat CT abd and pelvis on Tuesday. As per Dr. Powers, - Continue IV Cefazolin 2 gm q8 hrs - repeat blood Cx every other day until neg for 48 hrs. Once neg for 48 hrs, a PICC line can be placed - anticipate at least 4 weeks of therapy from 1st day of negative blood Cx - Incentive spirometry - CXR today Repeat blood culture was negative yesterday and today so far. If today still negative, will replace PICC line tomorrow. F/u with ID Dr. Rodriguez after discharging. 3. Hx of spinal stenosis, s/p lumbar spinal fusion 4. Hx of radiculopathy, lumbosacral 5. 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 RA As per patient, she has RA. Continue home medication leflunomide 20 mg tablet daily 8. Current smoker Smoking cessation counseling Nicotine patch 9. Nondisplaced acute transverse fracture - right ischial tuberosity. f/u with pcp 10. Skin rash Etiology unknown As per Dr. Powers, f/u with dermatology as an outpatient 11. DVT prophylaxis: Lovenox 12. CODE STATUS: Full Deposition: Possible SNF, PT/OT/CM consulted Time Spent With Patient Time: Total time spent is greater than 50% in coordination of care (as documented) at patient's floor/unit and/or counseling patient: QUALITY VTE Deep Vein Thrombosis/Pulmonary Embolism Present on Admission: No
--- NOTE | 2020-05-06 15:49 | Internal Med Progress Note ---
SUBJECTIVE Subjective Patient information: Note initiated : 05/06/20 at 3:47 pm Service Date, if different from initiated Date: [] Patient: Nita Antonio 54 y/o F admitted on 05/02/20 for Lower Back Pain. Chief Complaint: [] Pt is feeling better. Irritable because of her pain in left lower back. Denied any fever, chills, n/v. had a BM today. Constitutional Vitals: Vital Signs Temp Pulse Resp BP Pulse Ox 37.1 C 82 20 140/93 97 05/06/20 12:00 05/06/20 12:00 05/06/20 12:00 05/06/20 12:00 05/06/20 12:00 Period Temp Pulse Resp BP Sys/Sparks Pulse Ox Last 24 Hr 36.7 C-37.4 C 76-93 18-22 137-173/86-97 96-98 Intake and Output 05/06/20 05/06/20 05/06/20 05:59 13:59 21:59 Intake Total 700 200 Output Total 1050 550 Balance -350 -350 Intake & Output: Intake & Output 05/06/20 05/06/20 05/06/20 05:59 13:59 21:59 Intake Total 700 200 Output Total 1050 550 Balance -350 -350 Intake: Oral 700 200 Output: Void Amount 1050 550 Other: Meal Breakfast Percent of Meal Consumed 100% Feeding Ability Assist with Tray Set Up Urine Appearance Clear Urine Color Bright Yellow Urine Odor Normal # Voids 1 Additional findings Additional findings: ao x 3, in distress due to pain able to ambulate in room with help of walker has a maculopapular rash over back as mentioned yesterday did not examine joints because of severe pain in left lower back OBJ DATA Labs CBC & Chem 7: 05/06/20 05:55 05/06/20 05:55 Labs: Abnormal Lab Results 05/06/20 05/06/20 05/05/20 05:55 05:55 05:15 RBC 3.30 L Hgb 10.3 L Hct 30.4 L Plt Count 129 L Gran % 81.2 H Lymph % (Auto) 7.7 L Gran # Lymph # (Auto) 0.66 L Potassium 3.2 L Creatinine 0.5 L Calcium 8.3 L 8.3 L Total Protein 5.6 L 5.5 L Albumin 3.0 L 05/05/20 05/04/20 05:15 09:20 RBC 3.34 L 3.41 L Hgb 10.5 L 11.0 L Hct 31.9 L 32.4 L Plt Count 116 L 115 L Gran % 81.5 H 88.1 H Lymph % (Auto) 7.6 L 3.9 L Gran # 8.33 H Lymph # (Auto) 0.60 L 0.37 L Potassium Creatinine Calcium Total Protein Albumin Meds: Medications Acetaminophen (Tylenol) 650 mg PO Q6HP PRN; Protocol PRN Reason: Per Pain Protocol/Fever > 101 Last Admin: 05/06/20 09:39 Dose: 650 mg Documented by: Cefazolin Sodium (Ancef) 2 gm IV Q8H [facility] Last Admin: 05/06/20 13:49 Dose: 2 gm Documented by: Docusate Sodium (Colace) 100 mg PO BID [facility] Last Admin: 05/06/20 09:37 Dose: 100 mg Documented by: Enoxaparin Sodium (Lovenox) 40 mg SQ DAILY [facility] Last Admin: 05/06/20 09:40 Dose: 40 mg Documented by: Gabapentin (Neurontin) 300 mg PO QHS [facility] Last Admin: 05/05/20 20:26 Dose: 300 mg Documented by: Gabapentin (Neurontin) 600 mg PO DAILY [facility] Last Admin: 05/06/20 09:35 Dose: 600 mg Documented by: Hydromorphone HCl (Dilaudid) 1 mg IV Q2HP PRN; Protocol PRN Reason: Per Pain Protocol Last Admin: 05/06/20 12:53 Dose: 1 mg Documented by: Hydroxychloroquine Sulfate (Plaquenil) 300 mg PO MoWeFr@0900 [facility] Last Admin: 05/05/20 09:15 Dose: 300 mg Documented by: Hydroxychloroquine Sulfate (Plaquenil) 200 mg PO SuTuThSa@0900 [facility] Last Admin: 05/06/20 09:36 Dose: 200 mg Documented by: Sodium Chloride (Sodium Chloride 0.9%) 1,000 mls @ 75 mls/hr IV .[id number] [facility] Last Admin: 05/06/20 09:32 Dose: 75 mls/hr Documented by: Lactulose (Cephulac) 20 gm PO DAILYP PRN PRN Reason: constipation Last Admin: 05/06/20 09:40 Dose: 20 gm Documented by: Leflunomide (Arava) 20 mg PO QDAY [facility] Last Admin: 05/05/20 09:11 Dose: Not Given Documented by: Lidocaine (Lidoderm) 1 patch TOPICAL DAILY@1000 [facility] Last Admin: 05/05/20 09:10 Dose: 1 patch Documented by: Lidocaine (Lidoderm) 1 patch TOPICAL DAILY@1000 [facility] Last Admin: 05/05/20 09:10 Dose: 1 patch Documented by: Lorazepam (Ativan) 0.5 mg PO BIDP PRN PRN Reason: Anxiety Last Admin: 05/05/20 10:57 Dose: 0.5 mg Documented by: Methocarbamol (Robaxin) 1,500 mg PO HSP PRN PRN Reason: LOWER BACK PAIN Last Admin: 05/04/20 21:29 Dose: 1,500 mg Documented by: Nicotine (Nicoderm) 7 mg TOPICAL DAILY@1000 [facility] Last Admin: 05/05/20 09:09 Dose: 7 mg Documented by: Promethazine HCl (Phenergan) 12.5 mg IV Q8HP PRN PRN Reason: Nausea And Vomiting Last Admin: 05/05/20 17:57 Dose: 12.5 mg Documented by: Senna (Senokot) 2 tab PO HS [facility] Last Admin: 05/05/20 20:25 Dose: 2 tab Documented by: Sodium Chloride (Saline Flush) 10 ml IV Q8 [facility] Last Admin: 05/06/20 13:49 Dose: 10 ml Documented by: Tramadol HCl (Ultram) 50 mg PO Q6HP PRN PRN Reason: Pain Last Admin: 05/06/20 09:38 Dose: 50 mg Documented by: Vitamin D (Vitamin D3) 3,000 unit PO DAILY [facility] Last Admin: 05/06/20 09:34 Dose: 3,000 unit Documented by: Zolpidem Tartrate (Ambien) 2.5 mg PO HSP PRN PRN Reason: Insomnia A/P Narrative A/P Narrative: A: 1. Complicated MSSA bacteremia: - risk factors: RA on immunosuppressive therapy, MSSA colonization and itchy skin rash - possible portal of entry: skin - no sepsis - given pt has persistent left lower back pain; and the fact that she has 2 artificial hip joints; a hip joint infection needs to be ruled out. will start with CT based imaging - 1st day of neg blood Cx being 05/05/20 so far 2. Left illio-psoas muscle inflammation: sec to infection. concerns for seeding from MSSA - MRI spine s/o early phlegmon formation. CT spine done 05/05 revealed ~ 15 x 8 cm area of inflammation (? immature abscess) , no aspiration done by IR as no liquid pus visualized per Dr Dowling. 3. RA: on leflunomide now - previously received Humira 4. Skin rash: doesnot look infectious as it has been there prior to onset of MSSA bacteremia and pt had been on PO Prednisone for it. One of the common d/d in setting of RA could be Interstitial granulomatous dermatitis. Recommendations: - Continue IV Cefazolin 2 gm q8 hrs - repeat blood Cx every other day until neg for 48 hrs. Once neg for 48 hrs, a PICC line can be placed - anticipate at least 4 weeks of therapy from 1st day of negative blood Cx - Incentive spirometry - Repeat CT t/l spine with contrast in 1 week. In case there is a drainable fluid collection in illiopsoas muscle, agree with CT-guided aspiration of left psoas muscle swelling. Send aspirate for cell count, GS and C/S - Dermatology f/u after discharge for skin rash - CT b/l hips with contrast will follow Albino Powers MD Infectious Diseases Time Spent With Patient Time: Total time spent is greater than 50% in coordination of care (as documented) at patient's floor/unit and/or counseling patient: QUALITY VTE Deep Vein Thrombosis/Pulmonary Embolism Present on Admission: No
[2020-05-06] MEDS: LEFLUNOMIDE 20 MG TABLET PO SCH (15:51)
[2020-05-06] MEDS: LIDOCAINE PATCH TOPICAL SCH ×2 (15:51→15:52)
[2020-05-06] MEDS: NICOTINE 7 MG PATCH TOPICAL SCH (15:53)
[2020-05-06] MEDS: SENNOSIDES 1 TABLET PO SCH (21:53)
[2020-05-06] MEDS: METHOCARBAMOL 750 MG TABLET PO PRN (21:53)
[2020-05-07] MEDS: HYDROmorphone 1 MG/ML SYRINGE IV PRN ×9 (01:03→19:04)
[2020-05-07] MEDS: ACETAMINOPHEN 325 MG TABLET PO PRN (02:39)
[2020-05-07] MEDS: ceFAZolin 1 GM VIAL IV SCH ×3 (06:02→20:55)
[2020-05-07] MEDS: 0.9 % SODIUM CHLORIDE 1,000 ML IV SCH ×3 (06:03→19:08)
[2020-05-07] MEDS: 0.9 % SODIUM CHLORIDE 10 ML SYRINGE IV SCH ×4 (06:04→22:24)
--- NOTE | 2020-05-07 06:31 | XRay Report ---
CLINICAL INFORMATION: Sepsis COMPARISON: 05/02/2020 TECHNIQUE: Portable FINDINGS: The heart size, mediastinum and pulmonary vessels are unremarkable. The lungs are clear. There are no effusions. The bones and soft tissues are within normal limits. IMPRESSION: Normal chest. Interpreted and Authenticated by: Jim Eli 05/07/20
[2020-05-07] MEDS: ENOXAPARIN 40 MG/0.4 ML SYRINGE SQ SCH (08:43)
[2020-05-07] MEDS: HYDROXYCHLOROQUINE 200 MG TABLET PO SCH (08:44)
[2020-05-07] MEDS: GABAPENTIN 300 MG CAPSULE PO SCH ×2 (08:44→20:53)
[2020-05-07] MEDS: DOCUSATE SODIUM 100 MG CAPSULE PO SCH ×2 (08:45→20:53)
[2020-05-07] MEDS: VITAMIN D3 1,000 UNIT TABLET PO SCH (08:45)
[2020-05-07] MEDS: LEFLUNOMIDE 20 MG TABLET PO SCH (08:45)
[2020-05-07] MEDS: LIDOCAINE PATCH TOPICAL SCH ×2 (10:07→10:08)
[2020-05-07] MEDS: NICOTINE 7 MG PATCH TOPICAL SCH (10:07)
--- NOTE | 2020-05-07 11:14 | Internal Med Progress Note ---
SUBJECTIVE Subjective Patient information: Note initiated : 05/07/20 at 11:05 am Service Date, if different from initiated Date: [] Patient: Nita Antonio a 54 y/o F admitted on 05/02/20 for Lower Back Pain. Chief Complaint: [] Ms. 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 As per patient, patient has been having lower back pain since 11 years old. But she has been feeling a different lower back pain since yesterday 12 noon. The pain is most severe and radiated to her upper back and left thigh. The pain is constant and 10 out of 10. She also complains of nausea and fever. She vomited once today. Otherwise she denies headache, dizziness, chest pain, abdominal pain, dysuria, cough or shortness of breath. Denies urinary or bowel incontinence. Denies focal numbness or weakness. No recent travel or sick contact. Patient admits she is a current smoker. She also states that she has RA. 05/03 Pt does not feel well and feels cold. Blood culture showed GPC - MSSA. ID Dr. Powers saw pt today. Really apprecaite it. As per Dr. Powers, - Stop IV Vanc and IV Ceftriaxone - Start IV Cefazolin 2 gm q8 hrs - TTE - repeat blood Cx every other day until neg for 48 hrs. Once neg for 48 hrs, a PICC line can be placed - agree with IR, CT-guided aspiration of left psoas muscle swelling. Send aspirate for cell count, GS and C/S 05/04 Pt does not feel well and still complains of the pain. But patient no longer has fever and leukocytosis is resolved today. Repeat blood culture still positive. Will repeat blood culture tomorrow Discussed with radiologist Dr. Stone who suggested CT pelvis with oral and IV contrast tomorrow. Continue IV cefazolin 05/05 She is fine. But still complains of pain. Vital signs are stable. WBC normal since yesterday Repeat blood culture still positive. Repeated blood culture today CT pelvis with oral and IV contrast was ordered today. 05/06 General speaking pt feels better. still has pain but the pain is controlled. She asks for toradol and ibuprofen. I explained to her that she can not have these meds for long. CT abd and pelvis yesterday showed Large (15 x 3 cm) immature abscess in the left iliopsoas muscle belly with surrounding inflammation. nondisplaced acute transverse fracture - right ischial tuberosity. Spoke to radiology Dr. Eli, who does not think she should have any procedure at this moment but needs to repeat CT abd and pelvis on Tuesday. Repeat blood culture was negative yesterday and today so far. If today still negative, will replace PICC line tomorrow. 05/07 patient on IV cefazolin. Case discussed with ID. PICC line placement today. Clearance cultures negative. Persistent pain. Transition to oral opioids. Will likely discharge in [address] no evidence of worsening abscess. Remains anxious. Constitutional Vitals: Vital Signs Temp Pulse Resp BP Pulse Ox 98.3 F 76 16 137/89 97 05/07/20 07:02 05/07/20 07:02 05/07/20 07:02 05/07/20 07:02 05/07/20 07:02 Period Temp Pulse Resp BP Sys/Sparks Pulse Ox Last 24 Hr 98.2 F-99.1 F 76-88 16-22 133-145/80-94 95-99 Intake and Output 05/06/20 05/07/20 05/07/20 21:59 05:59 13:59 Intake Total 400 1300 90 Output Total 400 852 400 Balance 0 448 -310 Weight 61.19 kg anxious but alert and respond to commands Nonlabored breathing Multiple maculopapular lesions on the back No lymphedema Intake & Output: Intake & Output 05/06/20 05/07/20 05/07/20 21:59 05:59 13:59 Intake Total 400 1300 90 Output Total 400 852 400 Balance 0 448 -310 Weight 61.19 kg Intake: IV 1000 Sodium Chloride 0.9% 1,000 ml @ 1000 75 mls/hr IV .[id number] [facility] Rx#: [id number] Oral 400 300 90 Output: Void Amount 400 850 400 # of times incontinent of urine 2 Other: Meal Breakfast Percent of Meal Consumed 75% Feeding Ability Independent Urine Appearance Clear Clear Urine Color Bright Yellow Bright Yellow Straw Urine Odor Strong Normal Stool Size Small Stool Color Brown # Voids 1 # Bowel Movements 2 OBJ DATA Labs CBC & Chem 7: 07/28/20 05:55 05/06/20 05:55 Labs: Abnormal Lab Results 05/06/20 05/06/20 05/05/20 05:55 05:55 05:15 RBC 3.30 L Hgb 10.3 L Hct 30.4 L Plt Count 129 L Gran % 81.2 H Lymph % (Auto) 7.7 L Lymph # (Auto) 0.66 L Potassium 3.2 L Creatinine 0.5 L Calcium 8.3 L 8.3 L Total Protein 5.6 L 5.5 L Albumin 3.0 L 05/05/20 05:15 RBC 3.34 L Hgb 10.5 L Hct 31.9 L Plt Count 116 L Gran % 81.5 H Lymph % (Auto) 7.6 L Lymph # (Auto) 0.60 L Potassium Creatinine Calcium Total Protein Albumin Meds: Medications Acetaminophen (Tylenol) 650 mg PO Q6HP PRN; Protocol PRN Reason: Per Pain Protocol/Fever > 101 Last Admin: 05/07/20 02:39 Dose: 650 mg Documented by: Cefazolin Sodium (Ancef) 2 gm IV Q8H [facility] Last Admin: 05/07/20 06:02 Dose: 2 gm Documented by: Docusate Sodium (Colace) 100 mg PO BID [facility] Last Admin: 05/07/20 08:45 Dose: 100 mg Documented by: Enoxaparin Sodium (Lovenox) 40 mg SQ DAILY [facility] Last Admin: 05/07/20 08:43 Dose: 40 mg Documented by: Gabapentin (Neurontin) 300 mg PO QHS [facility] Last Admin: 05/06/20 21:53 Dose: 300 mg Documented by: Gabapentin (Neurontin) 600 mg PO DAILY [facility] Last Admin: 05/07/20 08:44 Dose: 600 mg Documented by: Hydromorphone HCl (Dilaudid) 1 mg IV Q2HP PRN; Protocol PRN Reason: Per Pain Protocol Last Admin: 05/07/20 10:08 Dose: 1 mg Documented by: Hydroxychloroquine Sulfate (Plaquenil) 300 mg PO MoWeFr@0900 [facility] Last Admin: 05/07/20 08:44 Dose: 300 mg Documented by: Hydroxychloroquine Sulfate (Plaquenil) 200 mg PO SuTuThSa@0900 [facility] Last Admin: 05/06/20 09:36 Dose: 200 mg Documented by: Sodium Chloride (Sodium Chloride 0.9%) 1,000 mls @ 75 mls/hr IV .[id number] [facility] Last Admin: 05/07/20 06:03 Dose: Not Given Documented by: Lactulose (Cephulac) 20 gm PO DAILYP PRN PRN Reason: constipation Last Admin: 05/06/20 09:40 Dose: 20 gm Documented by: Leflunomide (Arava) 20 mg PO QDAY [facility] Last Admin: 05/07/20 08:45 Dose: 20 mg Documented by: Lidocaine (Lidoderm) 1 patch TOPICAL DAILY@1000 [facility] Last Admin: 05/07/20 10:07 Dose: 1 patch Documented by: Lidocaine (Lidoderm) 1 patch TOPICAL DAILY@1000 [facility] Last Admin: 05/07/20 10:08 Dose: 1 patch Documented by: Lorazepam (Ativan) 0.5 mg PO BIDP PRN PRN Reason: Anxiety Last Admin: 05/05/20 10:57 Dose: 0.5 mg Documented by: Methocarbamol (Robaxin) 1,500 mg PO HSP PRN PRN Reason: LOWER BACK PAIN Last Admin: 05/06/20 21:53 Dose: 1,500 mg Documented by: Nicotine (Nicoderm) 7 mg TOPICAL DAILY@1000 [facility] Last Admin: 05/07/20 10:07 Dose: 7 mg Documented by: Promethazine HCl (Phenergan) 12.5 mg IV Q8HP PRN PRN Reason: Nausea And Vomiting Last Admin: 05/05/20 17:57 Dose: 12.5 mg Documented by: Senna (Senokot) 2 tab PO HS [facility] Last Admin: 05/06/20 21:53 Dose: 2 tab Documented by: Sodium Chloride (Saline Flush) 10 ml IV Q8 [facility] Last Admin: 05/07/20 06:04 Dose: 10 ml Documented by: Tramadol HCl (Ultram) 50 mg PO Q6HP PRN PRN Reason: Pain Last Admin: 05/06/20 21:54 Dose: 50 mg Documented by: Vitamin D (Vitamin D3) 3,000 unit PO DAILY [facility] Last Admin: 05/07/20 08:45 Dose: 3,000 unit Documented by: Zolpidem Tartrate (Ambien) 2.5 mg PO HSP PRN PRN Reason: Insomnia A/P Narrative A/P Narrative: A/P Narrative: * Complicated MSSA bacteremia-managed per ID on IV cefazolin for 4 weeks. Surveillance cultures negative so far. Echo negative for endocarditis. PICC line placement today. * Left psoas muscle abscess-repeat CT on Tuesday. IR Dr. Stone/Sreedhar and ID Dr. Powers consulted, immunosuppred due to RA,MSSA blood culture,CT abd and pelvis large (15 x 3 cm) immature abscess in the left iliopsoas muscle belly with surrounding inflammation. Radiology Dr. Eli, recommends repeat CT abd and pelvis on Tuesday. F/u with ID Dr. Rodriguez after discharging. 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 Continue pain management * DVT prophylaxis: Lovenox * CODE STATUS: Full * Deposition: Possible SNF, PT/OT/CM coordinating Time Spent With Patient Time: Total time spent is greater than 50% in coordination of care (as documented) at patient's floor/unit and/or counseling patient: Total time spent with greater than 50% in coordination of care (as documented) at patient's floor/unit and/or counseling patient:: Greater than 35 minutes QUALITY VTE Deep Vein Thrombosis/Pulmonary Embolism Present on Admission: No
--- NOTE | 2020-05-07 11:57 | Internal Med Progress Note ---
SUBJECTIVE Subjective Patient information: Note initiated : 05/07/20 at 11:53 am Service Date, if different from initiated Date: [] Patient: Nita Antonio 54 y/o F admitted on 05/02/20 for Lower Back Pain. Chief Complaint: [Is doing same as yesterday. Endorses pain in the left lower back. Is asking for ibuprofen to be added to her current pain medication regimen. Denies any fever, chills, nausea, vomiting, diarrhea. Endorses left knee pain. Mentions that normally her small joints of hand hurt because of RA but she her joints have not been hurting while in the hospital] Constitutional Vitals: Vital Signs Temp Pulse Resp BP Pulse Ox 36.8 C 76 16 137/89 97 05/07/20 07:02 05/07/20 07:02 05/07/20 07:02 05/07/20 07:02 05/07/20 07:02 Period Temp Pulse Resp BP Sys/Sparks Pulse Ox Last 24 Hr 36.8 C-37.3 C 76-88 16-22 133-145/80-94 95-99 Intake and Output 05/06/20 05/07/20 05/07/20 21:59 05:59 13:59 Intake Total 400 1300 90 Output Total 400 852 400 Balance 0 448 -310 Weight 61.19 kg Intake & Output: Intake & Output 05/06/20 05/07/20 05/07/20 21:59 05:59 13:59 Intake Total 400 1300 90 Output Total 400 852 400 Balance 0 448 -310 Weight 61.19 kg Intake: IV 1000 Sodium Chloride 0.9% 1,000 ml @ 1000 75 mls/hr IV .[id number] [facility] Rx#: [id number] Oral 400 300 90 Output: Void Amount 400 850 400 # of times incontinent of urine 2 Other: Meal Breakfast Percent of Meal Consumed 75% Feeding Ability Independent Urine Appearance Clear Clear Urine Color Bright Yellow Bright Yellow Straw Urine Odor Strong Normal Stool Size Small Stool Color Brown # Voids 1 # Bowel Movements 2 Additional findings Additional findings: ao x 3, in mild distress due to pain chest cta with VBS s1 s2 normal bs ++ no swelling over both knee and ankle joints OBJ DATA Labs CBC & Chem 7: 05/06/20 05:55 05/06/20 05:55 Labs: Abnormal Lab Results 05/06/20 05/06/20 05/05/20 05:55 05:55 05:15 RBC 3.30 L Hgb 10.3 L Hct 30.4 L Plt Count 129 L Gran % 81.2 H Lymph % (Auto) 7.7 L Lymph # (Auto) 0.66 L Potassium 3.2 L Creatinine 0.5 L Calcium 8.3 L 8.3 L Total Protein 5.6 L 5.5 L Albumin 3.0 L 05/05/20 05:15 RBC 3.34 L Hgb 10.5 L Hct 31.9 L Plt Count 116 L Gran % 81.5 H Lymph % (Auto) 7.6 L Lymph # (Auto) 0.60 L Potassium Creatinine Calcium Total Protein Albumin Meds: Medications Acetaminophen (Tylenol) 650 mg PO Q6HP PRN; Protocol PRN Reason: Per Pain Protocol/Fever > 101 Last Admin: 05/07/20 02:39 Dose: 650 mg Documented by: Cefazolin Sodium (Ancef) 2 gm IV Q8H [facility] Last Admin: 05/07/20 06:02 Dose: 2 gm Documented by: Docusate Sodium (Colace) 100 mg PO BID [facility] Last Admin: 05/07/20 08:45 Dose: 100 mg Documented by: Enoxaparin Sodium (Lovenox) 40 mg SQ DAILY [facility] Last Admin: 05/07/20 08:43 Dose: 40 mg Documented by: Gabapentin (Neurontin) 300 mg PO QHS [facility] Last Admin: 05/06/20 21:53 Dose: 300 mg Documented by: Gabapentin (Neurontin) 600 mg PO DAILY [facility] Last Admin: 05/07/20 08:44 Dose: 600 mg Documented by: Hydromorphone HCl (Dilaudid) 1 mg IV Q2HP PRN; Protocol PRN Reason: Per Pain Protocol Last Admin: 05/07/20 10:08 Dose: 1 mg Documented by: Hydroxychloroquine Sulfate (Plaquenil) 300 mg PO MoWeFr@0900 [facility] Last Admin: 05/07/20 08:44 Dose: 300 mg Documented by: Hydroxychloroquine Sulfate (Plaquenil) 200 mg PO SuTuThSa@0900 [facility] Last Admin: 05/06/20 09:36 Dose: 200 mg Documented by: Sodium Chloride (Sodium Chloride 0.9%) 1,000 mls @ 75 mls/hr IV .[id number] [facility] Last Admin: 05/07/20 06:03 Dose: Not Given Documented by: Lactulose (Cephulac) 20 gm PO DAILYP PRN PRN Reason: constipation Last Admin: 05/06/20 09:40 Dose: 20 gm Documented by: Leflunomide (Arava) 20 mg PO QDAY [facility] Last Admin: 05/07/20 08:45 Dose: 20 mg Documented by: Lidocaine (Lidoderm) 1 patch TOPICAL DAILY@1000 [facility] Last Admin: 05/07/20 10:07 Dose: 1 patch Documented by: Lidocaine (Lidoderm) 1 patch TOPICAL DAILY@1000 [facility] Last Admin: 05/07/20 10:08 Dose: 1 patch Documented by: Lorazepam (Ativan) 0.5 mg PO BIDP PRN PRN Reason: Anxiety Last Admin: 05/05/20 10:57 Dose: 0.5 mg Documented by: Methocarbamol (Robaxin) 1,500 mg PO HSP PRN PRN Reason: LOWER BACK PAIN Last Admin: 05/06/20 21:53 Dose: 1,500 mg Documented by: Nicotine (Nicoderm) 7 mg TOPICAL DAILY@1000 [facility] Last Admin: 05/07/20 10:07 Dose: 7 mg Documented by: Promethazine HCl (Phenergan) 12.5 mg IV Q8HP PRN PRN Reason: Nausea And Vomiting Last Admin: 05/05/20 17:57 Dose: 12.5 mg Documented by: Senna (Senokot) 2 tab PO HS [facility] Last Admin: 05/06/20 21:53 Dose: 2 tab Documented by: Sodium Chloride (Saline Flush) 10 ml IV Q8 [facility] Last Admin: 05/07/20 06:04 Dose: 10 ml Documented by: Tramadol HCl (Ultram) 50 mg PO Q6HP PRN PRN Reason: Pain Last Admin: 05/06/20 21:54 Dose: 50 mg Documented by: Vitamin D (Vitamin D3) 3,000 unit PO DAILY [facility] Last Admin: 05/07/20 08:45 Dose: 3,000 unit Documented by: Zolpidem Tartrate (Ambien) 2.5 mg PO HSP PRN PRN Reason: Insomnia A/P Narrative A/P Narrative: A: 1. Complicated MSSA bacteremia: - risk factors: RA on immunosuppressive therapy, MSSA colonization and itchy skin rash - possible portal of entry: skin - no sepsis - 1st day of neg blood Cx being 05/05/20 so far 2. Left illio-psoas muscle inflammation: sec to infection. concerns for seeding from MSSA - MRI spine s/o early phlegmon formation. CT spine done 05/05 revealed ~ 15 x 8 cm area of inflammation (? immature abscess) , no aspiration done by IR as no liquid pus visualized per Dr Dowling. - No concerns for hip joint involvement based on CT spine which included views of the hips (per radiologist) 3. RA: on leflunomide now - previously received Humira 4. Skin rash: doesnot look infectious as it has been there prior to onset of MSSA bacteremia and pt had been on PO Prednisone for it. One of the common d/d in setting of RA could be Interstitial granulomatous dermatitis. 5. Left knee pain: Seems more like arthralgias as there is no evidence of arthritis [swelling, redness, warmth, loss of function] Recommendations: - Continue IV Cefazolin 2 gm q8 hrs, day 3 - PICC line can be placed today - anticipate at least 4 weeks of therapy from 1st day of negative blood Cx - Incentive spirometry - Repeat CT t/l spine with contrast this Tuesday. In case there is a drainable fluid collection in illiopsoas muscle, agree with CT-guided aspiration of left psoas muscle swelling. Send aspirate for cell count, GS and C/S - Dermatology f/u after discharge for skin rash Pt to f/u with Dr Rodriguez (at [facility]) within 2 weeks after di scharherrera. I notified him of the above plan. Albino Powers MD Infectious Diseases Time Spent With Patient Time: Total time spent is greater than 50% in coordination of care (as documented) at patient's floor/unit and/or counseling patient: QUALITY VTE Deep Vein Thrombosis/Pulmonary Embolism Present on Admission: No
[2020-05-07] MEDS ORDERED: 0.9 % SODIUM CHLORIDE 10 ML SYRINGE IV PRN (12:21)
[2020-05-07] MEDS: traMADol 50 MG TABLET PO PRN (16:23)
[2020-05-07] MEDS: SENNOSIDES 1 TABLET PO SCH (20:52)
[2020-05-07] MEDS: oxyCODONE HCL 5 MG TABLET PO PRN (20:53)
[2020-05-07] MEDS: METHOCARBAMOL 750 MG TABLET PO PRN (20:53)
[2020-05-07] MEDS: LORazepam 0.5 MG TABLET PO PRN (20:53)
[2020-05-07] MEDS ORDERED: IBUPROFEN 400 MG TABLET PO PRN (21:00)
[2020-05-08] MEDS: traMADol 50 MG TABLET PO PRN ×2 (00:05→21:05)
[2020-05-08] MEDS: HYDROmorphone 1 MG/ML SYRINGE IV PRN ×8 (00:05→19:08)
[2020-05-08] MEDS: oxyCODONE HCL 5 MG TABLET PO PRN ×4 (03:46→19:06)
[2020-05-08] MEDS: ACETAMINOPHEN 325 MG TABLET PO PRN (03:47)
[2020-05-08] MEDS: 0.9 % SODIUM CHLORIDE 10 ML SYRINGE IV SCH ×5 (04:33→23:43)
[2020-05-08] MEDS: ceFAZolin 1 GM VIAL IV SCH ×3 (05:54→21:23)
[2020-05-08] MEDS: DOCUSATE SODIUM 100 MG CAPSULE PO SCH ×2 (08:28→21:05)
[2020-05-08] MEDS: LEFLUNOMIDE 20 MG TABLET PO SCH (08:28)
[2020-05-08] MEDS: GABAPENTIN 300 MG CAPSULE PO SCH ×2 (08:28→21:05)
[2020-05-08] MEDS: VITAMIN D3 1,000 UNIT TABLET PO SCH (08:28)
[2020-05-08] MEDS: ENOXAPARIN 40 MG/0.4 ML SYRINGE SQ SCH (08:28)
[2020-05-08] MEDS: HYDROXYCHLOROQUINE 200 MG TABLET PO SCH (08:29)
[2020-05-08] MEDS: LORazepam 0.5 MG TABLET PO PRN ×2 (09:44→21:05)
--- NOTE | 2020-05-08 10:04 | Internal Med Progress Note ---
SUBJECTIVE Subjective Patient information: Note initiated : 05/08/20 at 9:59 am Service Date, if different from initiated Date: [] Patient: Nita Antonio a 54 y/o F admitted on 05/02/20 for Lower Back Pain. Chief Complaint: Ms. 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 As per patient, patient has been having lower back pain since 11 years old. But she has been feeling a different lower back pain since yesterday 12 noon. The pain is most severe and radiated to her upper back and left thigh. The pain is constant and 10 out of 10. She also complains of nausea and fever. She vomited once today. Otherwise she denies headache, dizziness, chest pain, abdominal pain, dysuria, cough or shortness of breath. Denies urinary or bowel incontinence. Denies focal numbness or weakness. No recent travel or sick contact. Patient admits she is a current smoker. She also states that she has RA. 05/03 Pt does not feel well and feels cold. Blood culture showed GPC - MSSA. ID Dr. Powers saw pt today. Really apprecaite it. As per Dr. Powers, - Stop IV Vanc and IV Ceftriaxone - Start IV Cefazolin 2 gm q8 hrs - TTE - repeat blood Cx every other day until neg for 48 hrs. Once neg for 48 hrs, a PICC line can be placed - agree with IR, CT-guided aspiration of left psoas muscle swelling. Send aspirate for cell count, GS and C/S 05/04 Pt does not feel well and still complains of the pain. But patient no longer has fever and leukocytosis is resolved today. Repeat blood culture still positive. Will repeat blood culture tomorrow Discussed with radiologist Dr. Stone who suggested CT pelvis with oral and IV contrast tomorrow. Continue IV cefazolin 05/05 She is fine. But still complains of pain. Vital signs are stable. WBC normal since yesterday Repeat blood culture still positive. Repeated blood culture today CT pelvis with oral and IV contrast was ordered today. 05/06 General speaking pt feels better. still has pain but the pain is controlled. She asks for toradol and ibuprofen. I explained to her that she can not have these meds for long. CT abd and pelvis yesterday showed Large (15 x 3 cm) immature abscess in the left iliopsoas muscle belly with surrounding inflammation. nondisplaced acute transverse fracture - right ischial tuberosity. Spoke to radiology Dr. Eli, who does not think she should have any procedure at this moment but needs to repeat CT abd and pelvis on Tuesday. Repeat blood culture was negative yesterday and today so far. If today still negative, will replace PICC line tomorrow. 05/07 patient on IV cefazolin. Case discussed with ID. PICC line placement today. Clearance cultures negative. Persistent pain. Transition to oral opioids. Will likely discharge in [address] no evidence of worsening abscess. Remains anxious. 05/08-CT abdomen pelvis ordered for Tuesday for interval change and possible drai nage if consolidated abscess noted. Continuing antibiotics. Patient complains of persistent pain and requesting more frequent IV opioids. Explained the risk of excessive opioids as the ultimate treatment is antibiotics and treatment of abscess while trying to minimize the chances of opioid overdose. Normal. Afebrile. Constitutional Vitals: Vital Signs Temp Pulse Resp BP Pulse Ox 98.9 F 87 16 145/85 96 05/08/20 03:38 05/08/20 03:38 05/08/20 03:38 05/08/20 03:38 05/08/20 03:38 Period Temp Pulse Resp BP Sys/Sparks Pulse Ox Last 24 Hr 98.2 F-100.6 F 79-100 16-20 119-145/71-86 95-99 Intake and Output 05/07/20 05/08/20 05/08/20 21:59 05:59 13:59 Intake Total 600 220 Output Total 650 1400 Balance -50 -1180 Weight 61.008 kg Alert Anxious and fidgety Complains of pain out of proportion to clinical exam with no area of swelling, fluctuance or redness or muscle spasm around the left hip Intake & Output: Intake & Output 05/07/20 05/08/20 05/08/20 21:59 05:59 13:59 Intake Total 600 220 Output Total 650 1400 Balance -50 -1180 Weight 61.008 kg Intake: Oral 600 220 Output: Void Amount 650 1400 Other: Meal Lunch Percent of Meal Consumed 75% Feeding Ability Assist with Tray Set Up Urine Appearance Clear Clear Urine Color Bright Yellow Pale Urine Odor Strong Normal Stool Size Small Stool Color Brown OBJ DATA Labs CBC & Chem 7: 05/06/20 05:55 05/06/20 05:55 Labs: Abnormal Lab Results 05/06/20 05/06/20 05:55 05:55 RBC 3.30 L Hgb 10.3 L Hct 30.4 L Plt Count 129 L Gran % 81.2 H Lymph % (Auto) 7.7 L Lymph # (Auto) 0.66 L Calcium 8.3 L Total Protein 5.6 L Meds: Medications Acetaminophen (Tylenol) 650 mg PO Q6HP PRN; Protocol PRN Reason: Per Pain Protocol/Fever > 101 Last Admin: 05/08/20 03:47 Dose: 650 mg Documented by: Cefazolin Sodium (Ancef) 2 gm IV Q8H [facility] Last Admin: 05/08/20 05:54 Dose: 2 gm Documented by: Docusate Sodium (Colace) 100 mg PO BID [facility] Last Admin: 05/08/20 08:28 Dose: 100 mg Documented by: Enoxaparin Sodium (Lovenox) 40 mg SQ DAILY [facility] Last Admin: 05/08/20 08:28 Dose: 40 mg Documented by: Gabapentin (Neurontin) 300 mg PO QHS [facility] Last Admin: 05/07/20 20:53 Dose: 300 mg Documented by: Gabapentin (Neurontin) 600 mg PO DAILY [facility] Last Admin: 05/08/20 08:28 Dose: 600 mg Documented by: Heparin Sodium (Porcine) (Heparin 10 Units/Ml Flush) 2 ml IV Q12 [facility] Last Admin: 05/07/20 20:55 Dose: Not Given Documented by: Hydromorphone HCl (Dilaudid) 1 mg IV Q2HP PRN; Protocol PRN Reason: Per Pain Protocol Last Admin: 05/08/20 09:44 Dose: 1 mg Documented by: Hydroxychloroquine Sulfate (Plaquenil) 300 mg PO MoWeFr@0900 [facility] Last Admin: 05/07/20 08:44 Dose: 300 mg Documented by: Hydroxychloroquine Sulfate (Plaquenil) 200 mg PO SuTuThSa@0900 [facility] Last Admin: 05/08/20 08:29 Dose: 200 mg Documented by: Sodium Chloride (Sodium Chloride 0.9%) 1,000 mls @ 75 mls/hr IV .[id number] [facility] Last Admin: 05/07/20 19:08 Dose: Not Given Documented by: Ibuprofen (Ibuprofen) 400 mg PO TIDP PRN; Protocol PRN Reason: Per Pain Protocol Lactulose (Cephulac) 20 gm PO DAILYP PRN PRN Reason: constipation Last Admin: 05/06/20 09:40 Dose: 20 gm Documented by: Leflunomide (Arava) 20 mg PO QDAY [facility] Last Admin: 05/08/20 08:28 Dose: 20 mg Documented by: Lidocaine (Lidoderm) 1 patch TOPICAL DAILY@1000 [facility] Last Admin: 05/07/20 10:07 Dose: 1 patch Documented by: Lidocaine (Lidoderm) 1 patch TOPICAL DAILY@1000 [facility] Last Admin: 05/07/20 10:08 Dose: 1 patch Documented by: Lorazepam (Ativan) 0.5 mg PO BIDP PRN PRN Reason: Anxiety Last Admin: 05/08/20 09:44 Dose: 0.5 mg Documented by: Methocarbamol (Robaxin) 1,500 mg PO HSP PRN PRN Reason: LOWER BACK PAIN Last Admin: 05/07/20 20:53 Dose: 1,500 mg Documented by: Nicotine (Nicoderm) 7 mg TOPICAL DAILY@1000 [facility] Last Admin: 05/07/20 10:07 Dose: 7 mg Documented by: Oxycodone HCl (Roxicodone) 5 - 10 mg PO Q4HP PRN; Protocol PRN Reason: Per Pain Protocol Last Admin: 05/08/20 08:29 Dose: 10 mg Documented by: Promethazine HCl (Phenergan) 12.5 mg IV Q8HP PRN PRN Reason: Nausea And Vomiting Last Admin: 05/05/20 17:57 Dose: 12.5 mg Documented by: Senna (Senokot) 2 tab PO HS [facility] Last Admin: 05/07/20 20:52 Dose: 2 tab Documented by: Sodium Chloride (Saline Flush) 10 ml IV Q8 [facility] Last Admin: 05/08/20 04:33 Dose: Not Given Documented by: Sodium Chloride (Saline Flush) 10 ml IV UD PRN PRN Reason: FLUSH Sodium Chloride (Saline Flush) 10 ml IV Q12 [facility] Last Admin: 05/08/20 09:56 Dose: Not Given Documented by: Tramadol HCl (Ultram) 50 mg PO Q6HP PRN PRN Reason: Pain Last Admin: 05/08/20 00:05 Dose: 50 mg Documented by: Vitamin D (Vitamin D3) 3,000 unit PO DAILY [facility] Last Admin: 05/08/20 08:28 Dose: 3,000 unit Documented by: Zolpidem Tartrate (Ambien) 2.5 mg PO HSP PRN PRN Reason: Insomnia A/P Narrative A/P Narrative: * Complicated MSSA bacteremia-managed per ID on IV cefazolin for 4 weeks. Surveillance cultures negative so far. Echo negative for endocarditis. Ordered for PICC line placement * Left psoas muscle abscess-repeat CT on Tuesday For interval evaluation of psoas abscess. IR Dr. Stone/Sreedhar and ID Dr. Powers consulted, immunosuppred due to RA,MSSA blood culture,CT abd and pelvis 05/05 large (15 x 3 cm) immature abscess in the left iliopsoas muscle belly with surrounding inflammation. Radiology Dr. Eli, recommends repeat CT abd and pelvis on Tuesday. F/u with ID Dr. Rodriguez after discharging. 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 Continue pain management * DVT prophylaxis: Lovenox * CODE STATUS: Full * Deposition: Possible SNF, PT/OT/CM coordinating Time Spent With Patient Time: Total time spent is greater than 50% in coordination of care (as documented) at patient's floor/unit and/or counseling patient: Total time spent with greater than 50% in coordination of care (as documented) at patient's floor/unit and/or counseling patient:: Greater than 35 minutes QUALITY VTE Deep Vein Thrombosis/Pulmonary Embolism Present on Admission: No
[2020-05-08] MEDS: 0.9 % SODIUM CHLORIDE 1,000 ML IV SCH ×2 (10:35→15:57)
[2020-05-08] MEDS: LIDOCAINE PATCH TOPICAL SCH ×2 (11:25→11:26)
[2020-05-08] MEDS: NICOTINE 7 MG PATCH TOPICAL SCH (11:25)
--- NOTE | 2020-05-08 11:49 | XRay Report ---
CLINICAL INFORMATION: PICC PLACEMENT COMPARISON: 05/07/2020 FINDINGS: Heart size, mediastinum and pulmonary vessels are normal. Left PICC line tip overlies the left brachiocephalic SVC junction. Lungs are clear. No effusions. Bones and soft tissues normal. IMPRESSION: No acute disease. Left PICC line overlying the left brachycephalic SVC junction Interpreted and Authenticated by: Jim Eli 05/08/20
--- NOTE | 2020-05-08 14:03 | Internal Med Progress Note ---
SUBJECTIVE Subjective Patient information: Note initiated : 05/08/20 at 2:01 pm Service Date, if different from initiated Date: [] Patient: Nita Antonio 54 y/o F admitted on 05/02/20 for Lower Back Pain. Chief Complaint: [Patient feels comfortable at the time of visit due to the pain medications. Denies any fever, nausea, vomiting, diarrhea. Endorses chills. Reports pain is same in the back. Discussed follow-up plans after discharge Dr. Rodriguez, CADD pump, dermatology follow-up after discharge] Constitutional Vitals: Vital Signs Temp Pulse Resp BP Pulse Ox 36.8 C 78 16 102/62 95 05/08/20 12:00 05/08/20 12:00 05/08/20 12:00 05/08/20 12:00 05/08/20 12:00 Period Temp Pulse Resp BP Sys/Sparks Pulse Ox Last 24 Hr 36.8 C-38.1 C 78-100 16-20 102-145/62-86 95-99 Intake and Output 05/08/20 05/08/20 05/08/20 05:59 13:59 21:59 Intake Total 220 Output Total 1400 600 Balance -1180 -600 Weight 61.008 kg Patient Weight 05/09/20 05:59 Weight 61.008 kg Intake & Output: Intake & Output 05/08/20 05/08/20 05/08/20 05:59 13:59 21:59 Intake Total 220 Output Total 1400 600 Balance -1180 -600 Weight 61.008 kg Intake: Oral 220 Output: Void Amount 1400 600 Other: Urine Appearance Clear Urine Color Pale Urine Odor Normal Additional findings Additional findings: ao x 3, in nad chest cta has tenderness in b/l paravertebral areas, Lt > right The PICC line over left forearm appears fine OBJ DATA Labs CBC & Chem 7: 05/06/20 05:55 05/06/20 05:55 Labs: Abnormal Lab Results 05/06/20 05/06/20 05:55 05:55 RBC 3.30 L Hgb 10.3 L Hct 30.4 L Plt Count 129 L Gran % 81.2 H Lymph % (Auto) 7.7 L Lymph # (Auto) 0.66 L Calcium 8.3 L Total Protein 5.6 L Meds: Medications Acetaminophen (Tylenol) 650 mg PO Q6HP PRN; Protocol PRN Reason: Per Pain Protocol/Fever > 101 Last Admin: 05/08/20 03:47 Dose: 650 mg Documented by: Cefazolin Sodium (Ancef) 2 gm IV Q8H [facility] Last Admin: 05/08/20 05:54 Dose: 2 gm Documented by: Docusate Sodium (Colace) 100 mg PO BID [facility] Last Admin: 05/08/20 08:28 Dose: 100 mg Documented by: Enoxaparin Sodium (Lovenox) 40 mg SQ DAILY [facility] Last Admin: 05/08/20 08:28 Dose: 40 mg Documented by: Gabapentin (Neurontin) 300 mg PO QHS [facility] Last Admin: 05/07/20 20:53 Dose: 300 mg Documented by: Gabapentin (Neurontin) 600 mg PO DAILY [facility] Last Admin: 05/08/20 08:28 Dose: 600 mg Documented by: Heparin Sodium (Porcine) (Heparin 10 Units/Ml Flush) 2 ml IV Q12 [facility] Last Admin: 05/08/20 12:27 Dose: Not Given Documented by: Hydromorphone HCl (Dilaudid) 0.5 mg IV Q2HP PRN; Protocol PRN Reason: Per Pain Protocol Last Admin: 05/08/20 11:26 Dose: 0.5 mg Documented by: Hydroxychloroquine Sulfate (Plaquenil) 300 mg PO MoWeFr@0900 [facility] Last Admin: 05/07/20 08:44 Dose: 300 mg Documented by: Hydroxychloroquine Sulfate (Plaquenil) 200 mg PO SuTuThSa@0900 [facility] Last Admin: 05/08/20 08:29 Dose: 200 mg Documented by: Sodium Chloride (Sodium Chloride 0.9%) 1,000 mls @ 75 mls/hr IV .[id number] [facility] Last Admin: 05/08/20 10:35 Dose: Not Given Documented by: Ibuprofen (Ibuprofen) 400 mg PO TIDP PRN; Protocol PRN Reason: Per Pain Protocol Lactulose (Cephulac) 20 gm PO DAILYP PRN PRN Reason: constipation Last Admin: 05/06/20 09:40 Dose: 20 gm Documented by: Leflunomide (Arava) 20 mg PO QDAY [facility] Last Admin: 05/08/20 08:28 Dose: 20 mg Documented by: Lidocaine (Lidoderm) 1 patch TOPICAL DAILY@1000 [facility] Last Admin: 05/08/20 11:25 Dose: 1 patch Documented by: Lidocaine (Lidoderm) 1 patch TOPICAL DAILY@1000 [facility] Last Admin: 05/08/20 11:26 Dose: 1 patch Documented by: Lorazepam (Ativan) 0.5 mg PO BIDP PRN PRN Reason: Anxiety Last Admin: 05/08/20 09:44 Dose: 0.5 mg Documented by: Methocarbamol (Robaxin) 1,500 mg PO HSP PRN PRN Reason: LOWER BACK PAIN Last Admin: 05/07/20 20:53 Dose: 1,500 mg Documented by: Nicotine (Nicoderm) 7 mg TOPICAL DAILY@1000 [facility] Last Admin: 05/08/20 11:25 Dose: 7 mg Documented by: Oxycodone HCl (Roxicodone) 5 - 10 mg PO Q4HP PRN; Protocol PRN Reason: Per Pain Protocol Last Admin: 05/08/20 08:29 Dose: 10 mg Documented by: Promethazine HCl (Phenergan) 12.5 mg IV Q8HP PRN PRN Reason: Nausea And Vomiting Last Admin: 05/05/20 17:57 Dose: 12.5 mg Documented by: Senna (Senokot) 2 tab PO HS [facility] Last Admin: 05/07/20 20:52 Dose: 2 tab Documented by: Sodium Chloride (Saline Flush) 10 ml IV Q8 [facility] Last Admin: 05/08/20 04:33 Dose: Not Given Documented by: Sodium Chloride (Saline Flush) 10 ml IV UD PRN PRN Reason: FLUSH Sodium Chloride (Saline Flush) 10 ml IV Q12 [facility] Last Admin: 05/08/20 09:56 Dose: Not Given Documented by: Tramadol HCl (Ultram) 50 mg PO Q6HP PRN PRN Reason: Pain Last Admin: 05/08/20 00:05 Dose: 50 mg Documented by: Vitamin D (Vitamin D3) 3,000 unit PO DAILY [facility] Last Admin: 05/08/20 08:28 Dose: 3,000 unit Documented by: Zolpidem Tartrate (Ambien) 2.5 mg PO HSP PRN PRN Reason: Insomnia A/P Narrative A/P Narrative: A: 1. Complicated MSSA bacteremia: - risk factors: RA on immunosuppressive therapy, MSSA colonization and itchy skin rash - possible portal of entry: skin - no sepsis - 1st day of neg blood Cx being 05/05/20 so far 2. Left illio-psoas muscle inflammation: sec to infection. concerns for seeding from MSSA - MRI spine s/o early phlegmon formation. CT spine done 05/05 revealed ~ 15 x 8 cm area of inflammation (? immature abscess) , no aspiration done by IR as no liquid pus visualized per Dr Dowling. - No concerns for hip joint involvement based on CT spine which included views of the hips (per radiologist) 3. RA: on leflunomide now - previously received Humira 4. Skin rash: doesnot look infectious as it has been there prior to onset of MSSA bacteremia and pt had been on PO Prednisone for it. One of the common d/d in setting of RA could be Interstitial granulomatous dermatitis. Recommendations: - Continue IV Cefazolin 2 gm q8 hrs, day 4 - anticipate at least 4 weeks of therapy from 1st day of negative blood Cx - Incentive spirometry - Repeat CT t/l spine with contrast tomorrow. In case there is a drainable fluid collection in illiopsoas muscle, agree with CT-guided aspiration of left psoas muscle swelling. Send aspirate for cell count, GS and C/S - Dermatology f/u after discharge for skin rash Pt to f/u with Dr Rodriguez (at [facility]) within 2 weeks after discharge. I notified him of the above plan. Albino Powers MD Infectious Diseases Time Spent With Patient Time: Total time spent is greater than 50% in coordination of care (as documented) at patient's floor/unit and/or counseling patient: QUALITY VTE Deep Vein Thrombosis/Pulmonary Embolism Present on Admission: No
[2020-05-08] MEDS ORDERED: HYDROmorphone 0.5 MG/0.5 ML SYRINGE ONE (19:10)
[2020-05-08] MEDS: SENNOSIDES 1 TABLET PO SCH (21:05)
[2020-05-08] MEDS: METHOCARBAMOL 750 MG TABLET PO PRN (21:05)
[2020-05-08] MEDS: HYDROmorphone 0.5 MG/0.5 ML SYRINGE IV PRN ×2 (21:22→23:38)
[2020-05-08] MEDS: IBUPROFEN 200 MG TABLET PO PRN (22:57)
[2020-05-09] MEDS: oxyCODONE HCL 5 MG TABLET PO PRN ×2 (00:13→05:55)
[2020-05-09] MEDS: 0.9 % SODIUM CHLORIDE 1,000 ML IV SCH ×3 (01:08→20:25)
[2020-05-09] MEDS: traMADol 50 MG TABLET PO PRN ×3 (03:08→21:49)
[2020-05-09] MEDS: ceFAZolin 1 GM VIAL IV SCH ×3 (06:01→21:50)
[2020-05-09] MEDS: HYDROmorphone 0.5 MG/0.5 ML SYRINGE IV PRN ×3 (07:44→19:31)
[2020-05-09] MEDS ORDERED: IOPAMIDOL 100 ML BOTTLE IV ONE ×2 (08:32→16:58)
[2020-05-09] MEDS: HYDROXYCHLOROQUINE 200 MG TABLET PO SCH (09:07)
[2020-05-09] MEDS: LEFLUNOMIDE 20 MG TABLET PO SCH (09:08)
[2020-05-09] MEDS: VITAMIN D3 1,000 UNIT TABLET PO SCH (09:08)
[2020-05-09] MEDS: DOCUSATE SODIUM 100 MG CAPSULE PO SCH ×2 (09:08→20:32)
[2020-05-09] MEDS: GABAPENTIN 300 MG CAPSULE PO SCH ×2 (09:11→20:30)
[2020-05-09 09:16] LABS: Hematocrit 32.3 % (34.1-44.9); Hemoglobin 10.7 g/dL (11.2-15.7); Mean Cell Volume 94.2 fL (80.0-100.0); Mean Corpuscular HGB Conc 33.1 g/dL (31.0-36.0); Mean Platelet Volume 8.8 fL (7.4-10.4); Platelet Count 216 K/mcL (140-440); RBC 3.43 M/mcL (3.59-5.38); Red Cell Distribution Width 12.3 % (11.5-14.5); WBC 5.7 K/mcL (4.50-11.00)
[2020-05-09] MEDS: 0.9 % SODIUM CHLORIDE 10 ML SYRINGE IV SCH ×2 (09:16→20:33)
[2020-05-09] MEDS: ENOXAPARIN 40 MG/0.4 ML SYRINGE SQ SCH (09:16)
[2020-05-09] MEDS: LIDOCAINE PATCH TOPICAL SCH ×2 (09:32)
[2020-05-09 09:35] LABS: ALT/SGPT 9 U/l (0-40); AST/SGOT 28 U/l (0-37); Albumin 3.5 gm/dL (3.2-5.2); Albumin/Globulin Ratio 1.2 (1.0-2.3); Alkaline Phosphatase 74 U/L (39-117); Bilirubin,Direct < 0.2 mg/dL (0.0-0.3); Bilirubin,Total 0.4 mg/dL (0.0-1.0); Blood Urea Nitrogen 10 mg/dl (6-20); Calcium 9.2 mg/dl (8.6-10.4); Carbon Dioxide 26 mmol/L (22-30); Chloride 96 mmol/L (96-108); Globulin 2.9 gm/dL (2.2-3.7); Glomerular Filtration Rate 98; Glucose 91 mg/dL (70-105); Lactate Dehydrogenase 304 U/L (94-250); Phosphorous 3.9 mg/dL (2.7-4.5); Triglycerides 86 mg/dl (<150); Uric Acid 1.7 mg/dL (2.5-8.0)
--- NOTE | 2020-05-09 09:35 | Cat Scan Report ---
CLINICAL INFORMATION: Fall left psoas abscess. Increasing pain COMPARISON: Abdomen and pelvic CT four days prior to 05/05/2020. TECHNIQUE: Following enteric contrast, 80 cc of Isovue-370 were injected intravenously, and 60 seconds later, 0.625 mm helical slices were obtained from the mid heart through the subtrochanteric regions. Following reconstruction, 2.5 mm sagittal, coronal and axial reformatted images were processed and reviewed at bone, lung and soft tissue windows. Five minutes later, 0.625 mm helical slices were obtained from the mid heart through the kidneys and viewed at soft tissue windows.The exam was performed using radiation dose optimization techniques including, but not limited to, automated exposure control, adjustment of the mA and/or kV according to patient size and use of iterative reconstruction technique. FINDINGS: Small bilateral effusions decreased from the exam four days prior There is minor scarring and/or bibasilar which is stable - no definite infiltrate. The visualized heart is grossly normal. Abdominal images show minimal fatty change within the liver without focal lesion. Minimal periportal edema as decreased. Gallbladder and bile ducts are normal: CBD is 5 mm. Both kidneys, adrenal glands, spleen, pancreas and aorta including aortic branches are normal in size configuration and attenuation without focal lesion. Pelvic images show hysterectomy changes. Neither ovary is identified - either surgically absent or atrophic. The appendix is surgically absent. The stomach, small and large bowel are grossly normal. No free air or adenopathy. The abscess within the central psoas muscle belly has matured now more liquefied with a measurement zero capsule. It spans 8 x 3 cm. There is a 3 cm cavity in the superior aspect of the psoas which may not communicate with the largest abscess. Diffuse phlegmon seen throughout the psoas muscle as before. A transverse acute fracture the right ischial tuberosity is again noted. Bilateral hip prostheses are anatomically aligned without loosening or infection. L3-4 anterior/posterior fusion divided by interbody graft pedicle screws and short interbody struts are anatomically aligned. Laminectomy changes also seen at this level. Severe L2-3 degenerative disc disease with multilevel Schmorl's nodes invaginating the adjacent endplates appreciated IMPRESSION: 1. Large (8 x 3 cm abscess in the left psoas muscle belly has matured now appears to be liquefied with a mature capsule. Percutaneous drainage will now be performed. A 3 cm abscess, more superiorly the psoas muscle belly, may or may not communicate with the larger abscess cavity. This should respond to antibiotics and the event remains undrained following the procedure. 2. Nondisplaced acute transverse fracture - right ischial tuberosity. 3. Small bilateral pleural effusions - decreasing 4. Mild periportal edema typically related to primary hepatocellular inflammation or, less likely, elevated right heart pressures. Please correlate with LFTs. This has improved Interpreted and Authenticated by: Jim Eli 05/09/20
[2020-05-09] MEDS: NICOTINE 7 MG PATCH TOPICAL SCH (09:37)
[2020-05-09 09:51] LABS: Band Neutrophils % 2 % (0-10); Lymphocytes % 26 % (15-49); Metamyelocytes % 1 % (0-0); Monocytes % (Manual) 5 % (1-12); Myelocytes % 1 % (0-0); Platelet Estimate NORMAL (NORMAL); RBC Morphology NORMAL (NORMAL); Segmented Neutrophils % 65 % (38-78)
[2020-05-09] MEDS: IBUPROFEN 200 MG TABLET PO PRN ×2 (10:56→19:28)
--- NOTE | 2020-05-09 11:41 | Internal Med Progress Note ---
SUBJECTIVE Subjective Patient information: Note initiated : 05/09/20 at 11:36 am Service Date, if different from initiated Date: [] Patient: Nita Antonio a 54 y/o F admitted on 05/02/20 for Lower Back Pain. Chief Complaint: [] Ms. 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 As per patient, patient has been having lower back pain since 11 years old. But she has been feeling a different lower back pain since yesterday 12 noon. The pain is most severe and radiated to her upper back and left thigh. The pain is constant and 10 out of 10. She also complains of nausea and fever. She vomited once today. Otherwise she denies headache, dizziness, chest pain, abdominal pain, dysuria, cough or shortness of breath. Denies urinary or bowel incontinence. Denies focal numbness or weakness. No recent travel or sick contact. Patient admits she is a current smoker. She also states that she has RA. 05/03 Pt does not feel well and feels cold. Blood culture showed GPC - MSSA. ID Dr. Powers saw pt today. Really apprecaite it. As per Dr. Powers, - Stop IV Vanc and IV Ceftriaxone - Start IV Cefazolin 2 gm q8 hrs - TTE - repeat blood Cx every other day until neg for 48 hrs. Once neg for 48 hrs, a PICC line can be placed - agree with IR, CT-guided aspiration of left psoas muscle swelling. Send aspirate for cell count, GS and C/S 05/04 Pt does not feel well and still complains of the pain. But patient no longer has fever and leukocytosis is resolved today. Repeat blood culture still positive. Will repeat blood culture tomorrow Discussed with radiologist Dr. Stone who suggested CT pelvis with oral and IV contrast tomorrow. Continue IV cefazolin 05/05 She is fine. But still complains of pain. Vital signs are stable. WBC normal since yesterday Repeat blood culture still positive. Repeated blood culture today CT pelvis with oral and IV contrast was ordered today. 05/06 General speaking pt feels better. still has pain but the pain is controlled. She asks for toradol and ibuprofen. I explained to her that she can not have these meds for long. CT abd and pelvis yesterday showed Large (15 x 3 cm) immature abscess in the left iliopsoas muscle belly with surrounding inflammation. nondisplaced acute transverse fracture - right ischial tuberosity. Spoke to radiology Dr. Eli, who does not think she should have any procedure at this moment but needs to repeat CT abd and pelvis on Tuesday. Repeat blood culture was negative yesterday and today so far. If today still negative, will replace PICC line tomorrow. 05/07 patient on IV cefazolin. Case discussed with ID. PICC line placement today. Clearance cultures negative. Persistent pain. Transition to oral opioids. Will likely discharge in [address] no evidence of worsening abscess. Remains anxious. 05/08-CT abdomen pelvis ordered for Tuesday for interval change and possible dr swan if consolidated abscess noted. Continuing antibiotics. Patient complains of persistent pain and requesting more frequent IV opioids. Explained the risk of excessive opioids as the ultimate treatment is antibiotics and treatment of abscess while trying to minimize the chances of opioid overdose. Normal. Afebrile. 05/09-repeat CT reveals large 8 x 3 cm abscess in left psoas muscle. Perc utaneous drainage ordered. Continue antibiotic coverage as per ID recommendations. Pain worsening currently requiring large dose of IV opioids/breakthrough oral opioids/NSAIDs. Patient remains anxious, labs stable white count 5.7, potassium 3.8, creatinine 0.7 Constitutional Vitals: Vital Signs Temp Pulse Resp BP Pulse Ox 98.7 F 86 16 123/76 95 05/09/20 07:34 05/09/20 08:00 05/09/20 07:34 05/09/20 07:34 05/09/20 07:34 Period Temp Pulse Resp BP Sys/Sparks Pulse Ox Last 24 Hr 98.2 F-99.4 F 73-96 -20 102-155/62-92 95-99 Intake and Output 05/08/20 05/09/20 05/09/20 21:59 05:59 13:59 Intake Total 700 1000 240 Output Total 712 2065 525 Balance -25 -525 -285 Weight 59.511 kg very anxious Alert Nonlabored breathing restricted mobility due to significant pain Intake & Output: Intake & Output 05/08/20 05/09/2005/09/20 21:59 05:59 13:59 Intake Total 700 1000 240 Output Total 725 1525 525 Balance -25 -525 -285 Weight 59.511 kg Intake: IV 1000 Sodium Chloride 0.9% 1,000 ml @ 1000 75 mls/hr IV .[id number] [facility] Rx#: [id number] Oral 700 240 Output: Void Amount 725 1528 525 Other: Meal Dinner Breakfast Percent of Meal Consumed 10% 100% Feeding Ability Independent Independent Urine Appearance Clear Clear Clear Urine Color Bright Yellow Pale Bright Yellow Urine Odor Normal # Voids 4 OBJ DATA Labs CBC & Chem 7: 05/09/20 08:40 05/09/20 08:40 Labs: Abnormal Lab Results 05/09/20 05/09/20 08:40 08:40 RBC 3.43 L Hgb 10.7 L Hct 32.3 L Metamyelocytes % 1 H Myelocytes % 1 H Uric Acid 1.7 L Lactate Dehydrogenase 304 H Meds: Medications Acetaminophen (Tylenol) 650 mg PO Q6HP PRN; Protocol PRN Reason: Per Pain Protocol/Fever > 101 Last Admin: 05/08/20 03:47 Dose: 650 mg Documented by: Cefazolin Sodium (Ancef) 2 gm IV Q8H [facility] Last Admin: 05/09/20 06:01 Dose: 2 gm Documented by: Docusate Sodium (Colace) 100 mg PO BID [facility] Last Admin: 05/09/20 09:08 Dose: 100 mg Documented by: Enoxaparin Sodium (Lovenox) 40 mg SQ DAILY [facility] Last Admin: 05/09/20 09:16 Dose: 40 mg Documented by: Gabapentin (Neurontin) 300 mg PO QHS [facility] Last Admin: 05/08/20 21:05 Dose: 300 mg Documented by: Gabapentin (Neurontin) 600 mg PO DAILY [facility] Last Admin: 05/09/20 09:11 Dose: 600 mg Documented by: Heparin Sodium (Porcine) (Heparin 10 Units/Ml Flush) 2 ml IV Q12 [facility] Last Admin: 05/09/20 09:14 Dose: 2 ml Documented by: Hydromorphone HCl (Dilaudid) 0.5 mg IV Q2HP PRN; Protocol PRN Reason: Per Pain Protocol Last Admin: 05/09/20 07:44 Dose: 0.5 mg Documented by: Hydroxychloroquine Sulfate (Plaquenil) 300 mg PO MoWeFr@0900 [facility] Last Admin: 05/09/20 09:07 Dose: 300 mg Documented by: Hydroxychloroquine Sulfate (Plaquenil) 200 mg PO SuTuThSa@0900 [facility] Last Admin: 05/08/20 08:29 Dose: 200 mg Documented by: Sodium Chloride (Sodium Chloride 0.9%) 1,000 mls @ 75 mls/hr IV .[id number] [facility] Last Admin: 05/09/20 05:54 Dose: 75 mls/hr Documented by: Ibuprofen (Motrin) 400 mg PO Q8HP PRN; Protocol PRN Reason: Per Pain Protocol Last Admin: 05/09/20 10:56 Dose: 400 mg Documented by: Lactulose (Cephulac) 20 gm PO DAILYP PRN PRN Reason: constipation Last Admin: 05/06/20 09:40 Dose: 20 gm Documented by: Leflunomide (Arava) 20 mg PO QDAY [facility] Last Admin: 05/09/20 09:08 Dose: 20 mg Documented by: Lidocaine (Lidoderm) 1 patch TOPICAL DAILY@1000 [facility] Last Admin: 05/09/20 09:32 Dose: 1 patch Documented by: Lidocaine (Lidoderm) 1 patch TOPICAL DAILY@1000 [facility] Last Admin: 05/09/20 09:32 Dose: 1 patch Documented by: Lorazepam (Ativan) 0.5 mg PO BIDP PRN PRN Reason: Anxiety Last Admin: 05/08/20 21:05 Dose: 0.5 mg Documented by: Methocarbamol (Robaxin) 1,500 mg PO HSP PRN PRN Reason: LOWER BACK PAIN Last Admin: 05/08/20 21:05 Dose: 1,500 mg Documented by: Nicotine (Nicoderm) 7 mg TOPICAL DAILY@1000 [facility] Last Admin: 05/09/20 09:37 Dose: 7 mg Documented by: Oxycodone HCl (Oxycontin) 10 mg PO BID [facility]; Protocol Oxycodone HCl (Roxicodone) 5 mg PO Q4-6HP PRN; Protocol PRN Reason: Per Pain Protocol Promethazine HCl (Phenergan) 12.5 mg IV Q8HP PRN PRN Reason: Nausea And Vomiting Last Admin: 05/05/20 17:57 Dose: 12.5 mg Documented by: Senna (Senokot) 2 tab PO HS [facility] Last Admin: 05/08/20 21:05 Dose: 2 tab Documented by: Sodium Chloride (Saline Flush) 10 ml IV UD PRN PRN Reason: FLUSH Sodium Chloride (Saline Flush) 10 ml IV Q12 [facility] Last Admin: 05/09/20 09:16 Dose: 10 ml Documented by: Tramadol HCl (Ultram) 50 mg PO Q6HP PRN PRN Reason: Pain Last Admin: 05/09/20 09:29 Dose: 50 mg Documented by: Vitamin D (Vitamin D3) 3,000 unit PO DAILY [facility] Last Admin: 05/09/20 09:08 Dose: 3,000 unit Documented by: Zolpidem Tartrate (Ambien) 2.5 mg PO HSP PRN PRN Reason: Insomnia A/P Narrative A/P Narrative: * Complicated MSSA bacteremia-managed per ID on IV cefazolin for 4 weeks. On discharge antibiotics will be delivered via CADD pump. Surveillance cultures negative so far. Echo negative for endocarditis. PICC line secured * Left psoas muscle abscess-repeat CT 05/08 18X 3 cm abscess. Will undergo CT- guided drainage today by interventional etiology. F/u with ID Dr. Rodriguez after discharging. 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 Continue pain management * DVT prophylaxis: Lovenox * CODE STATUS: Full * Deposition: Possible SNF, PT/OT/CM coordinating Plan * CT-guided aspiration today, send sample for cultures * Pain management * Continue 4 weeks IV cefazolin via CADD pump * Follow-up with ID Dr. rodriguez on discharge Time Spent With Patient Time: Total time spent is greater than 50% in coordination of care (as documented) at patient's floor/unit and/or counseling patient: QUALITY VTE Deep Vein Thrombosis/Pulmonary Embolism Present on Admission: No
--- NOTE | 2020-05-09 11:49 | Internal Med Progress Note ---
SUBJECTIVE Subjective Patient information: Note initiated : 05/09/20 at 11:46 am Service Date, if different from initiated Date: [] Patient: Nita Antonio 54 y/o F admitted on 05/02/20 for Lower Back Pain. Chief Complaint: [] Patient seen while she was walking in the room. Endorses pain in the left lower back. Denies any fever, nausea, vomiting, diarrhea. She had CT scan results and plan for aspiration by the radiologist. Discussed that she will need repeat imaging in few weeks to document resolution of the abscess while she is on outpatient IV cefazolin. Patient voices understanding Constitutional Vitals: Vital Signs Temp Pulse Resp BP Pulse Ox 37.1 C 86 16 123/76 95 05/09/20 07:34 05/09/20 08:00 05/09/20 07:34 05/09/20 07:34 05/09/20 07:34 Period Temp Pulse Resp BP Sys/Sparks Pulse Ox Last 24 Hr 36.8 C-37.4 C 73-96 16-20 102-155/62-92 95-99 Intake and Output 05/08/20 05/09/20 05/09/20 21:59 05:59 13:59 Intake Total 700 1000 240 Output Total 725 1525 525 Balance -25 -525 -285 Weight 59.511 kg Intake & Output: Intake & Output 05/08/20 05/09/20 05/09/20 21:59 05:59 13:59 Intake Total 700 1000 240 Output Total 725 1525 525 Balance -25 -525 -285 Weight 59.511 kg Intake: IV 1000 Sodium Chloride 0.9% 1,000 ml @ 1000 75 mls/hr IV .[id number] [facility] Rx#: [id number] Oral 700 240 Output: Void Amount 725 1525 525 Other: Meal Dinner Breakfast Percent of Meal Consumed 10% 100% Feeding Ability Independent Independent Urine Appearance Clear Clear Clear Urine Color Bright Yellow Pale Bright Yellow Urine Odor Normal # Voids 4 Additional findings Additional findings: ao x 3, in nad Patient able to walk with help of a walker Given no change in patient status from yesterday, no further exam done given her back pain OBJ DATA Labs CBC & Chem 7: 05/09/20 08:40 05/09/20 08:40 Labs: Abnormal Lab Results 05/09/20 05/09/20 08:40 08:40 RBC 3.43 L Hgb 10.7 L Hct 32.3 L Metamyelocytes % 1 H Myelocytes % 1 H Uric Acid 1.7 L Lactate Dehydrogenase 304 H Meds: Medications Acetaminophen (Tylenol) 650 mg PO Q6HP PRN; Protocol PRN Reason: Per Pain Protocol/Fever > 101 Last Admin: 05/08/20 03:47 Dose: 650 mg Documented by: Cefazolin Sodium (Ancef) 2 gm IV Q8H [facility] Last Admin: 05/09/20 06:01 Dose: 2 gm Documented by: Docusate Sodium (Colace) 100 mg PO BID [facility] Last Admin: 05/09/20 09:08 Dose: 100 mg Documented by: Enoxaparin Sodium (Lovenox) 40 mg SQ DAILY [facility] Last Admin: 05/09/20 09:16 Dose: 40 mg Documented by: Gabapentin (Neurontin) 300 mg PO QHS [facility] Last Admin: 05/08/20 21:05 Dose: 300 mg Documented by: Gabapentin (Neurontin) 600 mg PO DAILY [facility] Last Admin: 05/09/20 09:11 Dose: 600 mg Documented by: Heparin Sodium (Porcine) (Heparin 10 Units/Ml Flush) 2 ml IV Q12 [facility] Last Admin: 05/09/20 09:14 Dose: 2 ml Documented by: Hydromorphone HCl (Dilaudid) 0.5 mg IV Q2HP PRN; Protocol PRN Reason: Per Pain Protocol Last Admin: 05/09/20 07:44 Dose: 0.5 mg Documented by: Hydroxychloroquine Sulfate (Plaquenil) 300 mg PO MoWeFr@0900 [facility] Last Admin: 05/09/20 09:07 Dose: 300 mg Documented by: Hydroxychloroquine Sulfate (Plaquenil) 200 mg PO SuTuThSa@0900 [facility] Last Admin: 05/08/20 08:29 Dose: 200 mg Documented by: Sodium Chloride (Sodium Chloride 0.9%) 1,000 mls @ 75 mls/hr IV .[id number] [facility] Last Admin: 05/09/20 05:54 Dose: 75 mls/hr Documented by: Ibuprofen (Motrin) 400 mg PO Q8HP PRN; Protocol PRN Reason: Per Pain Protocol Last Admin: 05/09/20 10:56 Dose: 400 mg Documented by: Lactulose (Cephulac) 20 gm PO DAILYP PRN PRN Reason: constipation Last Admin: 05/06/20 09:40 Dose: 20 gm Documented by: Leflunomide (Arava) 20 mg PO QDAY [facility] Last Admin: 05/09/20 09:08 Dose: 20 mg Documented by: Lidocaine (Lidoderm) 1 patch TOPICAL DAILY@1000 [facility] Last Admin: 05/09/20 09:32 Dose: 1 patch Documented by: Lidocaine (Lidoderm) 1 patch TOPICAL DAILY@1000 [facility] Last Admin: 05/09/20 09:32 Dose: 1 patch Documented by: Lorazepam (Ativan) 0.5 mg PO BIDP PRN PRN Reason: Anxiety Last Admin: 05/08/20 21:05 Dose: 0.5 mg Documented by: Methocarbamol (Robaxin) 1,500 mg PO HSP PRN PRN Reason: LOWER BACK PAIN Last Admin: 05/08/20 21:05 Dose: 1,500 mg Documented by: Nicotine (Nicoderm) 7 mg TOPICAL DAILY@1000 [facility] Last Admin: 05/09/20 09:37 Dose: 7 mg Documented by: Oxycodone HCl (Oxycontin) 10 mg PO BID [facility]; Protocol Oxycodone HCl (Roxicodone) 5 mg PO Q4-6HP PRN; Protocol PRN Reason: Per Pain Protocol Promethazine HCl (Phenergan) 12.5 mg IV Q8HP PRN PRN Reason: Nausea And Vomiting Last Admin: 05/05/20 17:57 Dose: 12.5 mg Documented by: Senna (Senokot) 2 tab PO HS [facility] Last Admin: 05/08/20 21:05 Dose: 2 tab Documented by: Sodium Chloride (Saline Flush) 10 ml IV UD PRN PRN Reason: FLUSH Sodium Chloride (Saline Flush) 10 ml IV Q12 [facility] Last Admin: 05/09/20 09:16 Dose: 10 ml Documented by: Tramadol HCl (Ultram) 50 mg PO Q6HP PRN PRN Reason: Pain Last Admin: 05/09/20 09:29 Dose: 50 mg Documented by: Vitamin D (Vitamin D3) 3,000 unit PO DAILY [facility] Last Admin: 05/09/20 09:08 Dose: 3,000 unit Documented by: Zolpidem Tartrate (Ambien) 2.5 mg PO HSP PRN PRN Reason: Insomnia A/P Narrative A/P Narrative: A: 1. Complicated MSSA bacteremia: - risk factors: RA on immunosuppressive therapy, MSSA colonization and itchy skin rash - possible portal of entry: skin - no sepsis - 1st day of neg blood Cx being 05/05/20 -Baseline ESR 33 and CRP 9.5 2. Left illio-psoas muscle inflammation: sec to infection. concerns for seeding from MSSA - MRI spine s/o early phlegmon formation. CT spine done 05/05 revealed ~ 15 x 8 cm area of inflammation (? immature abscess) , no aspiration done by IR as no liquid pus visualized per Dr Dowling. Repeat CT scan done today shows liquefaction of the immature abscess, along with a 3 cm abscess not communicating located superiorly in the psoas muscle - No concerns for hip joint involvement based on CT spine which included views of the hips (per radiologist) 3. RA: on leflunomide now - previously received Humira 4. Skin rash: doesnot look infectious as it has been there prior to onset of MSSA bacteremia and pt had been on PO Prednisone for it. One of the common d/d in setting of RA could be Interstitial granulomatous dermatitis. Recommendations: - Continue IV Cefazolin 2 gm q8 hrs, day 5 - anticipate at least 4 weeks of therapy from 1st day of negative blood Cx -Follow-up labs: CBC, CMP weekly ESR and CRP every other week - Incentive spirometry -Dr. Eli to drain the abscesses in the left iliopsoas muscle under CT guidance. Send aspirate for cell count, GS and C/S - Dermatology f/u after discharge for skin rash Pt to f/u with Dr Rodriguez (at [facility]) within 2 weeks after discharge. I notified him of the above plan yesterday. Albino Powers MD Infectious Diseases Time Spent With Patient Time: Total time spent is greater than 50% in coordination of care (as documented) at patient's floor/unit and/or counseling patient: QUALITY VTE Deep Vein Thrombosis/Pulmonary Embolism Present on Admission: No
[2020-05-09] MEDS ORDERED: MIDAZOLAM 5 MG/5 ML VIAL IV ONE (17:01)
[2020-05-09] MEDS ORDERED: fentaNYL 100 MCG/2 ML VIAL IV ONE ×2 (17:02)
[2020-05-09] MEDS ORDERED: LIDOCAINE 1% 20 ML VIAL SQ ONE (17:05)
[2020-05-09] MEDS ORDERED: MIDAZOLAM 2 MG/2 ML VIAL IV ONE (18:15)
--- NOTE | 2020-05-09 18:51 | Cat Scan Report ---
CLINICAL INFORMATION: 8 x 3 cm left psoas abscess COMPARISON: Abdomen and pelvic CT 05/09/2020 TECHNIQUE: The procedure and risks including possibility of bleeding, infection, bowel perforation and internal abdominal organ damage were all explained to the patient. She understood and wished to proceed. She was medicated prior to and during the procedure with Versed and fentanyl given in divided doses. Please see medication sheet for total dosages. Blood pressure and pulse oximeter monitor and she is maintaining continence during the procedure. Total sedation time was 50 minutes. With the patient in prone position, the psoas was first CT localized. The overlying skin was marked, prepped and locally anesthetized with 1% lidocaine to the level of the abscess capsule using 25-gauge spinal needle. A 17-gauge styletted needle was then placed in the center aspect of the cavity under CT guidance. Approximately 3 cc of sanguinopurulent fluid was aspirated and sent for Gram stain culture and sensitivity. An 0.35 mm J-wire was then placed through the guide needle and coiled in the cavity. The tract was sequentially dilated to 12 [place] and 12 [place] APD pigtail drain was loaded over the wire. Initially, the wire to unit had traversed through the anterior aspect of the muscle. Both entities were withdrawn such that the tube was positioned in the center of the abscess cavity. The tube was then locked and sutured. Only 5 cc of purulent fluid was aspirated due to increased fluid viscosity. IMPRESSION: Successful CT-guided placement of 12 [place] APD drain in the central aspect of the left psoas abscess. 5 cc of purulent fluid was aspirated and sent for Gram stain culture and sensitivity. The tube was left to gravity bag drainage. Nurses instructed to flush forward and back with 10 cc normal saline every six hours and record tube output. Interpreted and Authenticated by: Jim Eli 05/09/20
[2020-05-09] MEDS: METHOCARBAMOL 750 MG TABLET PO PRN (20:30)
[2020-05-09] MEDS: oxyCODONE 10 MG TAB.ER.12H PO SCH (20:31)
[2020-05-09] MEDS: SENNOSIDES 1 TABLET PO SCH (20:32)
[2020-05-10] MEDS: oxyCODONE HCL 5 MG TABLET PO PRN ×3 (00:45→19:37)
[2020-05-10] MEDS: HYDROmorphone 0.5 MG/0.5 ML SYRINGE IV PRN ×9 (03:55→23:24)
[2020-05-10] MEDS: IBUPROFEN 200 MG TABLET PO PRN ×2 (04:53→17:37)
[2020-05-10] MEDS: traMADol 50 MG TABLET PO PRN (06:13)
[2020-05-10] MEDS: 0.9 % SODIUM CHLORIDE 1,000 ML IV SCH ×3 (06:14→20:46)
[2020-05-10] MEDS: ceFAZolin 1 GM VIAL IV SCH ×3 (06:18→22:13)
[2020-05-10] MEDS: LEFLUNOMIDE 20 MG TABLET PO SCH (09:38)
[2020-05-10] MEDS: DOCUSATE SODIUM 100 MG CAPSULE PO SCH ×2 (09:49→20:45)
[2020-05-10] MEDS: GABAPENTIN 300 MG CAPSULE PO SCH ×2 (09:49→20:45)
[2020-05-10] MEDS: oxyCODONE 10 MG TAB.ER.12H PO SCH ×2 (09:50→20:46)
[2020-05-10] MEDS: VITAMIN D3 1,000 UNIT TABLET PO SCH (09:50)
[2020-05-10] MEDS: NICOTINE 7 MG PATCH TOPICAL SCH (09:50)
[2020-05-10] MEDS: LIDOCAINE PATCH TOPICAL SCH ×2 (09:51)
[2020-05-10] MEDS: ENOXAPARIN 40 MG/0.4 ML SYRINGE SQ SCH (09:51)
[2020-05-10] MEDS: 0.9 % SODIUM CHLORIDE 10 ML SYRINGE IV SCH ×2 (09:55→20:46)
[2020-05-10] MEDS: HYDROXYCHLOROQUINE 200 MG TABLET PO SCH (09:56)
--- NOTE | 2020-05-10 10:02 | Internal Med Progress Note ---
SUBJECTIVE Subjective Patient information: Note initiated : 05/10/20 at 9:58 am Service Date, if different from initiated Date: [] Patient: Nita Antonio a 54 y/o F admitted on 05/02/20 for Lower Back Pain. Chief Complaint: [] Ms. 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 As per patient, patient has been having lower back pain since 11 years old. But she has been feeling a different lower back pain since yesterday 12 noon. The pain is most severe and radiated to her upper back and left thigh. The pain is constant and 10 out of 10. She also complains of nausea and fever. She vomited once today. Otherwise she denies headache, dizziness, chest pain, abdominal pain, dysuria, cough or shortness of breath. Denies urinary or bowel incontinence. Denies focal numbness or weakness. No recent travel or sick contact. Patient admits she is a current smoker. She also states that she has RA. 05/03 Pt does not feel well and feels cold. Blood culture showed GPC - MSSA. ID Dr. Powers saw pt today. Really apprecaite it. As per Dr. Powers, - Stop IV Vanc and IV Ceftriaxone - Start IV Cefazolin 2 gm q8 hrs - TTE - repeat blood Cx every other day until neg for 48 hrs. Once neg for 48 hrs, a PICC line can be placed - agree with IR, CT-guided aspiration of left psoas muscle swelling. Send aspirate for cell count, GS and C/S 05/04 Pt does not feel well and still complains of the pain. But patient no longer has fever and leukocytosis is resolved today. Repeat blood culture still positive. Will repeat blood culture tomorrow Discussed with radiologist Dr. Stone who suggested CT pelvis with oral and IV contrast tomorrow. Continue IV cefazolin 05/05 She is fine. But still complains of pain. Vital signs are stable. WBC normal since yesterday Repeat blood culture still positive. Repeated blood culture today CT pelvis with oral and IV contrast was ordered today. 05/06 General speaking pt feels better. still has pain but the pain is controlled. She asks for toradol and ibuprofen. I explained to her that she can not have these meds for long. CT abd and pelvis yesterday showed Large (15 x 3 cm) immature abscess in the left iliopsoas muscle belly with surrounding inflammation. nondisplaced acute transverse fracture - right ischial tuberosity. Spoke to radiology Dr. Eli, who does not think she should have any procedure at this moment but needs to repeat CT abd and pelvis on Tuesday. Repeat blood culture was negative yesterday and today so far. If today still negative, will replace PICC line tomorrow. 05/07 patient on IV cefazolin. Case discussed with ID. PICC line placement today. Clearance cultures negative. Persistent pain. Transition to oral opioids. Will likely discharge in [address] no evidence of worsening abscess. Remains anxious. 05/08-CT abdomen pelvis ordered for Tuesday for interval change and possible kye inage if consolidated abscess noted. Continuing antibiotics. Patient complains of persistent pain and requesting more frequent IV opioids. Explained the risk of excessive opioids as the ultimate treatment is antibiotics and treatment of abscess while trying to minimize the chances of opioid overdose. Normal. Afebrile. 05/09-repeat CT reveals large 8 x 3 cm abscess in left psoas muscle. Percu taneous drainage ordered. Continue antibiotic coverage as per ID recommendations. Pain worsening currently requiring large dose of IV opioids/breakthrough oral opioids/NSAIDs. Patient remains anxious, labs stable white count 5.7, potassium 3.8, creatinine 0.7 05/10-patient doing better post psoas abscess drainage/catheter placement. On current flushes as per IR recommendations. Continue antibiotics. Anticipate discharge in 24 to 48 hours on outpatient IV antibiotics and outpatient follow-up with infectious specialist. Constitutional Vitals: Vital Signs Temp Pulse Resp BP Pulse Ox 98.6 F 71 16 101/59 96 05/10/20 08:00 05/10/20 08:00 05/10/20 08:00 05/10/20 08:00 05/10/20 08:00 Period Temp Pulse Resp BP Sys/Sparks Pulse Ox Last 24 Hr 97.9 F-99.4 F 71-96 16-20 101-132/59-88 96-98 Intake and Output 05/09/20 05/10/20 05/10/20 21:59 05:59 13:59 Intake Total 1000 1620 900 Output Total 433 Balance 1000 1187 900 Weight 59.194 kg alert oriented Left psoas abscess drainage catheter with serosanguineous drainage Appears anxious Nonlabored breathing Intake & Output: Intake & Output 05/09/20 05/10/20 05/10/20 21:59 05:59 13:59 Intake Total 1000 1620 900 Output Total 433 Balance 1000 1187 900 Weight 59.194 kg Intake: IV 1000 900 Sodium Chloride 0.9% 1,000 ml @ 1000 900 75 mls/hr IV .[id number] [facility] Rx#: [id number] Oral 1600 Input, Drain Irrigation Amount 20 Central Aspect Left Psoas 20 Muscle Output: Drainage 33 Central Aspect Left Psoas 33 Muscle Void Amount 400 Other: Urine Appearance Clear Clear Urine Color Bright Yellow Bright Yellow Urine Odor Normal Normal Stool Size Moderate Stool Color Brown Stool Consistency Dry and Hard Formed OBJ DATA Labs CBC & Chem 7: 05/09/20 08:40 05/09/20 08:40 Labs: Abnormal Lab Results 05/09/20 05/09/20 08:40 08:40 RBC 3.43 L Hgb 10.7 L Hct 32.3 L Metamyelocytes % 1 H Myelocytes % 1 H Uric Acid 1.7 L Lactate Dehydrogenase 304 H Meds: Medications Acetaminophen (Tylenol) 650 mg PO Q6HP PRN; Protocol PRN Reason: Per Pain Protocol/Fever > 101 Last Admin: 05/08/20 03:47 Dose: 650 mg Documented by: Cefazolin Sodium (Ancef) 2 gm IV Q8H [facility] Last Admin: 05/10/20 06:18 Dose: 2 gm Documented by: Docusate Sodium (Colace) 100 mg PO BID [facility] Last Admin: 05/10/20 09:49 Dose: 100 mg Documented by: Enoxaparin Sodium (Lovenox) 40 mg SQ DAILY [facility] Last Admin: 05/10/20 09:51 Dose: 40 mg Documented by: Gabapentin (Neurontin) 300 mg PO QHS [facility] Last Admin: 05/09/20 20:30 Dose: 300 mg Documented by: Gabapentin (Neurontin) 600 mg PO DAILY [facility] Last Admin: 05/10/20 09:49 Dose: 600 mg Documented by: Heparin Sodium (Porcine) (Heparin 10 Units/Ml Flush) 2 ml IV Q12 [facility] Last Admin: 05/10/20 09:35 Dose: 2 ml Documented by: Hydromorphone HCl (Dilaudid) 0.5 mg IV Q2HP PRN; Protocol PRN Reason: Per Pain Protocol Last Admin: 05/10/20 09:32 Dose: 0.5 mg Documented by: Hydroxychloroquine Sulfate (Plaquenil) 300 mg PO MoWeFr@0900 [facility] Last Admin: 05/09/20 09:07 Dose: 300 mg Documented by: Hydroxychloroquine Sulfate (Plaquenil) 200 mg PO SuTuThSa@0900 [facility] Last Admin: 05/10/20 09:56 Dose: 200 mg Documented by: Sodium Chloride (Sodium Chloride 0.9%) 1,000 mls @ 75 mls/hr IV .[id number] [facility] Last Admin: 05/10/20 06:14 Dose: 75 mls/hr Documented by: Ibuprofen (Motrin) 400 mg PO Q8HP PRN; Protocol PRN Reason: Per Pain Protocol Last Admin: 05/10/20 04:53 Dose: 400 mg Documented by: Lactulose (Cephulac) 20 gm PO DAILYP PRN PRN Reason: constipation Last Admin: 05/06/20 09:40 Dose: 20 gm Documented by: Leflunomide (Arava) 20 mg PO QDAY [facility] Last Admin: 05/10/20 09:38 Dose: Not Given Documented by: Lidocaine (Lidoderm) 1 patch TOPICAL DAILY@1000 [facility] Last Admin: 05/10/20 09:51 Dose: 1 patch Documented by: Lidocaine (Lidoderm) 1 patch TOPICAL DAILY@1000 [facility] Last Admin: 05/10/20 09:51 Dose: 1 patch Documented by: Lorazepam (Ativan) 0.5 mg PO BIDP PRN PRN Reason: Anxiety Last Admin: 05/08/20 21:05 Dose: 0.5 mg Documented by: Methocarbamol (Robaxin) 1,500 mg PO HSP PRN PRN Reason: LOWER BACK PAIN Last Admin: 05/09/20 20:30 Dose: 1,500 mg Documented by: Nicotine (Nicoderm) 7 mg TOPICAL DAILY@1000 [facility] Last Admin: 05/10/20 09:50 Dose: 7 mg Documented by: Oxycodone HCl (Oxycontin) 10 mg PO BID [facility]; Protocol Last Admin: 05/10/20 09:50 Dose: 10 mg Documented by: Oxycodone HCl (Roxicodone) 5 mg PO Q4-6HP PRN; Protocol PRN Reason: Per Pain Protocol Last Admin: 05/10/20 04:54 Dose: 5 mg Documented by: Promethazine HCl (Phenergan) 12.5 mg IV Q8HP PRN PRN Reason: Nausea And Vomiting Last Admin: 05/05/20 17:57 Dose: 12.5 mg Documented by: Senna (Senokot) 2 tab PO HS [facility] Last Admin: 05/09/20 20:32 Dose: 2 tab Documented by: Sodium Chloride (Saline Flush) 10 ml IV UD PRN PRN Reason: FLUSH Sodium Chloride (Saline Flush) 10 ml IV Q12 [facility] Last Admin: 05/10/20 09:55 Dose: 10 ml Documented by: Tramadol HCl (Ultram) 50 mg PO Q6HP PRN PRN Reason: Pain Last Admin: 05/10/20 06:13 Dose: 50 mg Documented by: Vitamin D (Vitamin D3) 3,000 unit PO DAILY [facility] Last Admin: 05/10/20 09:50 Dose: 3,000 unit Documented by: Zolpidem Tartrate (Ambien) 2.5 mg PO HSP PRN PRN Reason: Insomnia Last Admin: 05/09/20 20:33 Dose: 2.5 mg Documented by: A/P Narrative A/P Narrative: * Complicated MSSA bacteremia-managed per ID on IV cefazolin for 4 weeks. Arrange CADD pump for outpatient ABX. Surveillance cultures negative so far. Echo negative for endocarditis. PICC line secured * Left psoas muscle abscess-status post CT-guided aspiration and catheter placement by IR. Continue drainage per IR/antibiotics. Follow-up with infectious specialist outpatient. 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 Continue pain management * DVT prophylaxis: Lovenox * CODE STATUS: Full * Deposition: Possible SNF versus home, PT/OT/CM coordinating Plan * Continue drain catheter care per IR recommendations * Pain management * Continue 4 weeks IV cefazolin via CADD pump on discharge * Follow-up with ID Dr. wilkinson on discharge Time Spent With Patient Time: Total time spent is greater than 50% in coordination of care (as documented) at patient's floor/unit and/or counseling patient: QUALITY VTE Deep Vein Thrombosis/Pulmonary Embolism Present on Admission: No
[2020-05-10 10:23] LABS: Hematocrit 32.9 % (34.1-44.9); Mean Cell Volume 94.3 fL (80.0-100.0); Mean Corpuscular HGB Conc 33.4 g/dL (31.0-36.0); Mean Platelet Volume 8.7 fL (7.4-10.4); Platelet Count 243 K/mcL (140-440); RBC 3.49 M/mcL (3.59-5.38); Red Cell Distribution Width 12.3 % (11.5-14.5); WBC 7.6 K/mcL (4.50-11.00)
[2020-05-10 10:38] LABS: ALT/SGPT 11 U/l (0-40); AST/SGOT 35 U/l (0-37); Albumin 3.2 gm/dL (3.2-5.2); Albumin/Globulin Ratio 1.1 (1.0-2.3); Alkaline Phosphatase 71 U/L (39-117); Bilirubin,Direct < 0.2 mg/dL (0.0-0.3); Bilirubin,Total 0.3 mg/dL (0.0-1.0); Blood Urea Nitrogen 12 mg/dl (6-20); Calcium 8.7 mg/dl (8.6-10.4); Carbon Dioxide 25 mmol/L (22-30); Chloride 99 mmol/L (96-108); Glomerular Filtration Rate 98; Glucose 83 mg/dL (70-105); Lactate Dehydrogenase 246 U/L (94-250); Phosphorous 3.3 mg/dL (2.7-4.5); Triglycerides 78 mg/dl (<150)
[2020-05-10 10:40] LABS: Uric Acid 2.1 mg/dL (2.5-8.0)
[2020-05-10 10:52] LABS: Band Neutrophils % 3 % (0-10); Eosinophils % (Manual) 3 % (0-7); Lymphocytes % 20 % (15-49); Monocytes % (Manual) 5 % (1-12); Platelet Estimate NORMAL (NORMAL); RBC Morphology NORMAL (NORMAL); Segmented Neutrophils % 69 % (38-78)
[2020-05-10] MEDS: LACTULOSE 20 GM/30 ML ORAL.SOL PO PRN (11:11)
[2020-05-10] MEDS: ACETAMINOPHEN 325 MG TABLET PO PRN (11:20)
[2020-05-10] MEDS: LORazepam 0.5 MG TABLET PO PRN ×2 (11:25→22:24)
[2020-05-10] MEDS: diphenhydrAMINE 12.5 MG/5 ML ORAL.SOL PO PRN ×2 (15:34→23:25)
[2020-05-10] MEDS: SENNOSIDES 1 TABLET PO SCH (20:46)
[2020-05-11] MEDS: HYDROmorphone 0.5 MG/0.5 ML SYRINGE IV PRN ×5 (01:30→22:27)
[2020-05-11] MEDS: oxyCODONE HCL 5 MG TABLET PO PRN ×2 (03:54→09:48)
[2020-05-11] MEDS: 0.9 % SODIUM CHLORIDE 1,000 ML IV SCH ×2 (04:42→09:57)
[2020-05-11] MEDS: ceFAZolin 1 GM VIAL IV SCH ×3 (05:49→22:26)
[2020-05-11] MEDS: LORazepam 0.5 MG TABLET PO PRN (07:11)
[2020-05-11] MEDS: LEFLUNOMIDE 20 MG TABLET PO SCH (09:43)
[2020-05-11] MEDS: GABAPENTIN 300 MG CAPSULE PO SCH ×2 (09:44→20:44)
[2020-05-11] MEDS: ENOXAPARIN 40 MG/0.4 ML SYRINGE SQ SCH (09:44)
[2020-05-11] MEDS: DOCUSATE SODIUM 100 MG CAPSULE PO SCH ×2 (09:44→20:44)
[2020-05-11] MEDS: 0.9 % SODIUM CHLORIDE 10 ML SYRINGE IV SCH ×2 (09:45→22:27)
[2020-05-11] MEDS: HYDROXYCHLOROQUINE 200 MG TABLET PO SCH (09:45)
[2020-05-11] MEDS: VITAMIN D3 1,000 UNIT TABLET PO SCH (09:46)
[2020-05-11] MEDS: oxyCODONE 10 MG TAB.ER.12H PO SCH (09:46)
[2020-05-11] MEDS: NICOTINE 7 MG PATCH TOPICAL SCH (09:47)
[2020-05-11] MEDS: LIDOCAINE PATCH TOPICAL SCH ×2 (09:47)
[2020-05-11] MEDS: HYDROcodone/APAP 5/325MG TABLET PO PRN ×3 (11:58→20:44)
--- NOTE | 2020-05-11 13:33 | Cat Scan Report ---
CLINICAL INFORMATION: Follow up left psoas abscess - poor drainage. COMPARISON: Preprocedure abdomen and pelvic CT 05/09/2020 TECHNIQUE: 0.625 mm helical slices were obtained from the mid heart through the subtrochanteric regions. Following reconstruction, 2.5 mm sagittal, coronal and axial reformatted images were processed and reviewed at bone and soft tissue windows.The exam was performed using radiation dose optimization techniques including, but not limited to, automated exposure control, adjustment of the mA and/or kV according to patient size and use of iterative reconstruction technique. FINDINGS: Lung bases show no abnormality - no effusion. The visualized heart is normal. Abdominal images show the noncontrasted liver, gallbladder and bile ducts, both kidneys, adrenal glands, spleen, pancreas and aorta to be normal in size configuration and attenuation without focal lesion. There is no free air, free fluid adenopathy. Pelvic images show hysterectomy changes. Ovaries are not identified. The appendix is surgically absent. Stomach and small large bowel are grossly normal mild ileus pattern appreciated The 12 [place] [employer] pigtail drainage catheter remains in stable satisfactory position in the central psoas within the medial aspect of the psoas abscess. The psoas abscess has decreased in size: previously the area was 8 x 3 cm. On today's examination, it is 1.3 x 5 cm. IMPRESSION: Moderate interval decrease in left psoas abscess from a 8 x 3 cm to 5 x 1.3 cm. Mild left phlegmon seen throughout the left psoas muscle. Given the scant drainage from the tube, the tube will be removed. The patient can be treated with pain medications and antibiotics for the known staph aureus. Residual phlegmon and minimal fluid within the muscle belly would typically resolve over the course of 2-3 weeks. Interpreted and Authenticated by: Jim Eli 05/11/20
--- NOTE | 2020-05-11 14:01 | Internal Med Progress Note ---
SUBJECTIVE Subjective Patient information: Note initiated : 05/11/20 at 1:57 pm Service Date, if different from initiated Date: [] Patient: Nita Antonio a 54 y/o F admitted on 05/02/20 for Lower Back Pain. Chief Complaint: [] Ms. 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 As per patient, patient has been having lower back pain since 11 years old. But she has been feeling a different lower back pain since yesterday 12 noon. The pain is most severe and radiated to her upper back and left thigh. The pain is constant and 10 out of 10. She also complains of nausea and fever. She vomited once today. Otherwise she denies headache, dizziness, chest pain, abdominal pain, dysuria, cough or shortness of breath. Denies urinary or bowel incontinence. Denies focal numbness or weakness. No recent travel or sick contact. Patient admits she is a current smoker. She also states that she has RA. 05/03 Pt does not feel well and feels cold. Blood culture showed GPC - MSSA. ID Dr. Powers saw pt today. Really apprecaite it. As per Dr. Powers, - Stop IV Vanc and IV Ceftriaxone - Start IV Cefazolin 2 gm q8 hrs - TTE - repeat blood Cx every other day until neg for 48 hrs. Once neg for 48 hrs, a PICC line can be placed - agree with IR, CT-guided aspiration of left psoas muscle swelling. Send aspirate for cell count, GS and C/S 05/04 Pt does not feel well and still complains of the pain. But patient no longer has fever and leukocytosis is resolved today. Repeat blood culture still positive. Will repeat blood culture tomorrow Discussed with radiologist Dr. Stone who suggested CT pelvis with oral and IV contrast tomorrow. Continue IV cefazolin 05/05 She is fine. But still complains of pain. Vital signs are stable. WBC normal since yesterday Repeat blood culture still positive. Repeated blood culture today CT pelvis with oral and IV contrast was ordered today. 05/06 General speaking pt feels better. still has pain but the pain is controlled. She asks for toradol and ibuprofen. I explained to her that she can not have these meds for long. CT abd and pelvis yesterday showed Large (15 x 3 cm) immature abscess in the left iliopsoas muscle belly with surrounding inflammation. nondisplaced acute transverse fracture - right ischial tuberosity. Spoke to radiology Dr. Eli, who does not think she should have any procedure at this moment but needs to repeat CT abd and pelvis on Tuesday. Repeat blood culture was negative yesterday and today so far. If today still negative, will replace PICC line tomorrow. 05/07 patient on IV cefazolin. Case discussed with ID. PICC line placement today. Clearance cultures negative. Persistent pain. Transition to oral opioids. Will likely discharge in [address] no evidence of worsening abscess. Remains anxious. 05/08-CT abdomen pelvis ordered for Tuesday for interval change and possible drai nage if consolidated abscess noted. Continuing antibiotics. Patient complains of persistent pain and requesting more frequent IV opioids. Explained the risk of excessive opioids as the ultimate treatment is antibiotics and treatment of abscess while trying to minimize the chances of opioid overdose. Normal. Afebrile. 05/09-repeat CT reveals large 8 x 3 cm abscess in left psoas muscle. Percut aneous drainage ordered. Continue antibiotic coverage as per ID recommendations. Pain worsening currently requiring large dose of IV opioids/breakthrough oral opioids/NSAIDs. Patient remains anxious, labs stable white count 5.7, potassium 3.8, creatinine 0.7 05/10-patient doing better post psoas abscess drainage/catheter placement. On current flushes as per IR recommendations. Continue antibiotics. Anticipate discharge in 24 to 48 hours on outpatient IV antibiotics and outpatient follow- up with infectious specialist. 05/11- Repeat CT done per IR, drain placement appropriate, primitivo be discontinued per IR in 24 hours, On Abx, will possibly DC in AM, continue antibiotic coverage/pain management. Transition to oral [place] Constitutional Vitals: Vital Signs Temp Pulse Resp BP Pulse Ox 99.1 F H 89 20 136/90 100 05/11/20 12:00 05/11/20 12:00 05/11/20 12:00 05/11/20 12:00 05/11/20 12:00 Period Temp Pulse Resp BP Sys/Sparks Pulse Ox Last 24 Hr 98.5 F-99.3 F 87-98 16- 131-155/84-92 96-100 Intake and Output 05/10/20 05/11/20 05/11/20 21:59 05:59 13:59 Intake Total 0 220 989 Output Total 20 19 Balance 2069 201 989 Weight 53.206 kg alert,anxious Non labored breathing ambulating Intake & Output: Intake & Output 05/10/20 05/11/20 05/11/20 21:59 05:59 13:59 Intake Total 0 220 989 Output Total 20 19 Balance 2069 201 989 Weight 53.206 kg Intake: IV 1000 989 Sodium Chloride 0.9% 1,000 ml @ 1000 989 75 mls/hr IV .[id number] [facility] Rx#: [id number] Oral 1080 200 Input, Drain Irrigation Amount 10 20 Central Aspect Left Psoas 10 20 Muscle Output: Drainage 10 18 Central Aspect Left Psoas 10 18 Muscle Drainage 10 0 Central Aspect Left Psoas 10 0 Muscle Void Amount 1 Other: Meal Dinner Percent of Meal Consumed 50% Feeding Ability Independent Stool Color Brown Stool Consistency Normal for Patient # Voids 2 1 # Bowel Movements 2 OBJ DATA Labs CBC & Chem 7: 05/10/20 09:26 05/10/20 09:26 Labs: Abnormal Lab Results 05/10/20 05/10/20 05/09/20 09:26 09:26 08:40 RBC 3.49 L Hgb 11.0 L Hct 32.9 L Metamyelocytes % Myelocytes % Uric Acid 2.1 L 1.7 L Lactate Dehydrogenase 304 H 05/09/20 08:40 RBC 3.43 L Hgb 10.7 L Hct 32.3 L Metamyelocytes % 1 H Myelocytes % 1 H Uric Acid Lactate Dehydrogenase Meds: Medications Acetaminophen (Tylenol) 650 mg PO Q6HP PRN; Protocol PRN Reason: Per Pain Protocol/Fever > 101 Last Admin: 05/10/20 11:20 Dose: 650 mg Documented by: Hydrocodone Bitart/Acetaminophen ([place] 5/325mg) 1 - 2 tab PO Q4HP PRN; Protocol PRN Reason: Per Pain Protocol Last Admin: 05/11/20 11:58 Dose: 2 tab Documented by: Cefazolin Sodium (Ancef) 2 gm IV Q8H [facility] Last Admin: 05/11/20 05:49 Dose: 2 gm Documented by: Diphenhydramine HCl (Bendadryl) 12.5 mg PO Q4-6HP PRN PRN Reason: Itching Last Admin: 05/10/20 23:25 Dose: 12.5 mg Documented by: Docusate Sodium (Colace) 100 mg PO BID [facility] Last Admin: 05/11/20 09:44 Dose: 100 mg Documented by: Enoxaparin Sodium (Lovenox) 40 mg SQ DAILY [facility] Last Admin: 05/11/20 09:44 Dose: 40 mg Documented by: Gabapentin (Neurontin) 300 mg PO QHS [facility] Last Admin: 05/10/20 20:45 Dose: 300 mg Documented by: Gabapentin (Neurontin) 600 mg PO DAILY [facility] Last Admin: 05/11/20 09:44 Dose: 600 mg Documented by: Heparin Sodium (Porcine) (Heparin 10 Units/Ml Flush) 2 ml IV Q12 [facility] Last Admin: 05/11/20 09:44 Dose: 2 ml Documented by: Hydromorphone HCl (Dilaudid) 0.5 mg IV Q2HP PRN; Protocol PRN Reason: Per Pain Protocol Last Admin: 05/11/20 11:58 Dose: 0.5 mg Documented by: Hydroxychloroquine Sulfate (Plaquenil) 300 mg PO MoWeFr@0900 [facility] Last Admin: 05/09/20 09:07 Dose: 300 mg Documented by: Hydroxychloroquine Sulfate (Plaquenil) 200 mg PO SuTuThSa@0900 [facility] Last Admin: 05/11/20 09:45 Dose: 200 mg Documented by: Ibuprofen (Motrin) 400 mg PO Q8HP PRN; Protocol PRN Reason: Per Pain Protocol Last Admin: 05/10/20 17:37 Dose: 400 mg Documented by: Lactulose (Cephulac) 20 gm PO DAILYP PRN PRN Reason: constipation Last Admin: 05/10/20 11:11 Dose: 20 gm Documented by: Leflunomide (Arava) 20 mg PO QDAY [facility] Last Admin: 05/11/20 09:43 Dose: Not Given Documented by: Lidocaine (Lidoderm) 1 patch TOPICAL DAILY@1000 [facility] Last Admin: 05/11/20 09:47 Dose: 1 patch Documented by: Lidocaine (Lidoderm) 1 patch TOPICAL DAILY@1000 [facility] Last Admin: 05/11/20 09:47 Dose: 1 patch Documented by: Lorazepam (Ativan) 0.5 mg PO BIDP PRN PRN Reason: Anxiety Last Admin: 05/11/20 07:11 Dose: 0.5 mg Documented by: Methocarbamol (Robaxin) 1,500 mg PO HSP PRN PRN Reason: LOWER BACK PAIN Last Admin: 05/09/20 20:30 Dose: 1,500 mg Documented by: Nicotine (Nicoderm) 7 mg TOPICAL DAILY@1000 [facility] Last Admin: 05/11/20 09:47 Dose: 7 mg Documented by: Promethazine HCl (Phenergan) 12.5 mg IV Q8HP PRN PRN Reason: Nausea And Vomiting Last Admin: 05/05/20 17:57 Dose: 12.5 mg Documented by: Senna (Senokot) 2 tab PO HS [facility] Last Admin: 05/10/20 20:46 Dose: Not Given Documented by: Sodium Chloride (Saline Flush) 10 ml IV UD PRN PRN Reason: FLUSH Last Admin: 05/10/20 21:41 Dose: 10 ml Documented by: Sodium Chloride (Saline Flush) 10 ml IV Q12 [facility] Last Admin: 05/11/20 09:45 Dose: 10 ml Documented by: Tramadol HCl (Ultram) 50 mg PO Q6HP PRN PRN Reason: Pain Last Admin: 05/10/20 06:13 Dose: 50 mg Documented by: Vitamin D (Vitamin D3) 3,000 unit PO DAILY [facility] Last Admin: 05/11/20 09:46 Dose: 3,000 unit Documented by: Zolpidem Tartrate (Ambien) 2.5 mg PO HSP PRN PRN Reason: Insomnia Last Admin: 05/09/20 20:33 Dose: 2.5 mg Documented by: A/P Narrative A/P Narrative: * Complicated MSSA bacteremia-managed per ID on IV cefazolin for 4 weeks. will likely discharge in a.m. on outpatient ABX. Surveillance cultures negative so far. Echo negative for endocarditis. PICC line care * Left psoas muscle abscess-status post CT-guided aspiration and catheter placement by IR. IR recommends discontinuing catheter Peggy. Schedule follow- up with infectious specialist outpatient. 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 Continue pain management * DVT prophylaxis: Lovenox * CODE STATUS: Full * Deposition: Possible SNF versus home, PT/OT/CM coordinating Plan * Continue drain catheter care per IR recommendations, IR will dc catheter in AM * Pain management on [place] * Continue 4 weeks IV cefazolin via CADD pump on discharge * Follow-up with ID Dr. wilkinson on discharge Time Spent With Patient Time: Total time spent is greater than 50% in coordination of care (as documented) at patient's floor/unit and/or counseling patient: QUALITY VTE Deep Vein Thrombosis/Pulmonary Embolism Present on Admission: No
[2020-05-11] MEDS: IBUPROFEN 200 MG TABLET PO PRN (19:58)
[2020-05-11] MEDS: traMADol 50 MG TABLET PO PRN (20:44)
[2020-05-11] MEDS: SENNOSIDES 1 TABLET PO SCH (20:44)
[2020-05-11] MEDS: METHOCARBAMOL 750 MG TABLET PO PRN (20:44)
[2020-05-11] MEDS: diphenhydrAMINE 12.5 MG/5 ML ORAL.SOL PO PRN (22:48)
[2020-05-12] MEDS: HYDROcodone/APAP 5/325MG TABLET PO PRN ×4 (00:28→14:24)
[2020-05-12] MEDS: HYDROmorphone 0.5 MG/0.5 ML SYRINGE IV PRN ×2 (04:14→11:15)
[2020-05-12] MEDS: ceFAZolin 1 GM VIAL IV SCH ×2 (05:23→14:24)
[2020-05-12] MEDS: LORazepam 0.5 MG TABLET PO PRN (05:23)
[2020-05-12] MEDS: GABAPENTIN 300 MG CAPSULE PO SCH (09:19)
[2020-05-12] MEDS: ENOXAPARIN 40 MG/0.4 ML SYRINGE SQ SCH (09:19)
[2020-05-12] MEDS: DOCUSATE SODIUM 100 MG CAPSULE PO SCH (09:19)
[2020-05-12] MEDS: NICOTINE 7 MG PATCH TOPICAL SCH (09:20)
[2020-05-12] MEDS: VITAMIN D3 1,000 UNIT TABLET PO SCH (09:20)
[2020-05-12] MEDS: 0.9 % SODIUM CHLORIDE 10 ML SYRINGE IV SCH (09:20)
[2020-05-12] MEDS: LIDOCAINE PATCH TOPICAL SCH ×2 (09:20)
[2020-05-12] MEDS: LEFLUNOMIDE 20 MG TABLET PO SCH (09:21)
[2020-05-12] MEDS: HYDROXYCHLOROQUINE 200 MG TABLET PO SCH (09:22)
--- NOTE | 2020-05-12 11:26 | Discharge Summary ---
Discharge Provider Provider Patient information: Note initiated : 05/12/20 at 11:23 am Service Date, if different from initiated Date: [] Patient: Nita Antonio a 54 y/o F admitted on 05/02/20 for Lower Back Pain. Discharge diagnosis * Complicated MSSA bacteremia-managed per ID on IV cefazolin for 4 weeks. Discharging on outpatient additional 24 days IV cefazolin as per ID.. Surveillance cultures negative so far. Echo negative for endocarditis. Continue PICC line care. Follow-up with Dr. rodriguez at [facility] in 2 weeks. Continue weekly CBC CMP/every other week CRP ESR to be ordered by primary care physician * Left psoas muscle abscess-status post CT-guided aspiration and catheter placement by IR. Drain discontinued by IR. Follow-up with Dr. 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 Follow-up PCP * Tobacco dependence, Smoking cessation counseling,nicotine patch * Nondisplaced acute transverse fracture - right ischial tuberosity. Nonoperative. Pain well controlled. Brief hospital course Ms. 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 As per patient, patient has been having lower back pain since 11 years old. But she has been feeling a different lower back pain since yesterday 12 noon. The pain is most severe and radiated to her upper back and left thigh. The pain is constant and 10 out of 10. She also complains of nausea and fever. She vomited once today. Otherwise she denies headache, dizziness, chest pain, abdominal pain, dysuria, cough or shortness of breath. Denies urinary or bowel incontinence. Denies focal numbness or weakness. No recent travel or sick contact. Patient admits she is a current smoker. She also states that she has RA. 05/03 Pt does not feel well and feels cold. Blood culture showed GPC - MSSA. ID Dr. Powers saw pt today. Really apprecaite it. As per Dr. Powers, - Stop IV Vanc and IV Ceftriaxone - Start IV Cefazolin 2 gm q8 hrs - TTE - repeat blood Cx every other day until neg for 48 hrs. Once neg for 48 hrs, a PICC line can be placed - agree with IR, CT-guided aspiration of left psoas muscle swelling. Send aspirate for cell count, GS and C/S 05/04 Pt does not feel well and still complains of the pain. But patient no longer has fever and leukocytosis is resolved today. Repeat blood culture still positive. Will repeat blood culture tomorrow Discussed with radiologist Dr. Stone who suggested CT pelvis with oral and IV contrast tomorrow. Continue IV cefazolin 05/05 She is fine. But still complains of pain. Vital signs are stable. WBC normal since yesterday Repeat blood culture still positive. Repeated blood culture today CT pelvis with oral and IV contrast was ordered today. 05/06 General speaking pt feels better. still has pain but the pain is controlled. She asks for toradol and ibuprofen. I explained to her that she can not have these meds for long. CT abd and pelvis yesterday showed Large (15 x 3 cm) immature abscess in the left iliopsoas muscle belly with surrounding inflammation. nondisplaced acute transverse fracture - right ischial tuberosity. Spoke to radiology Dr. Eli, who does not think she should have any procedure at this moment but needs to repeat CT abd and pelvis on Tuesday. Repeat blood culture was negative yesterday and today so far. If today still negative, will replace PICC line tomorrow. 05/07 patient on IV cefazolin. Case discussed with ID. PICC line placement today. Clearance cultures negative. Persistent pain. Transition to oral opioids. Will likely discharge in [address] no evidence of worsening abscess. Remains anxious. 05/08-CT abdomen pelvis ordered for Tuesday for interval change and possible drainage if consolidated abscess noted. Continuing antibiotics. Patient complains of persistent pain and requesting more frequent IV opioids. Explained the risk of excessive opioids as the ultimate treatment is antibiotics and treatment of abscess while trying to minimize the chances of opioid overdose. Normal. Afebrile. 05/09-repeat CT reveals large 8 x 3 cm abscess in left psoas muscle. Percutaneous drainage ordered. Continue antibiotic coverage as per ID recommendations. Pain worsening currently requiring large dose of IV opioids/breakthrough oral opioids/NSAIDs. Patient remains anxious, labs stable white count 5.7, potassium 3.8, creatinine 0.7 05/10-patient doing better post psoas abscess drainage/catheter placement. On current flushes as per IR recommendations. Continue antibiotics. Anticipate discharge in 24 to 48 hours on outpatient IV antibiotics and outpatient follow- up with infectious specialist. 05/11- Repeat CT done per IR, drain placement appropriate, primitivo be discontinued per IR in 24 hours, On Abx, will possibly DC in AM, continue antibiotic coverage/pain management. Transition to oral Blandford 05/12-patient doing well. Psoas abscess clinically improving. Continue antibiotic for additional 24 days IV cefazolin will be administered via CADD pump. Patient will follow-up with infectious specialist outpatient Dr. rodriguez. Also recommend dermatology follow-up as outpatient. Detailed discharge instructions as below. Date of admission: 05/02/20 19:19 Discharge date: 05/12/20 Primary care physician: Lory Laird Consults: 05/02/20 Consult to Physician [CONS] Stat Comment: Consulting Provider: Erna Mcrae Reason For Exam: Physician to Consult Consult to Physician [CONS] Stat Comment: Consulting Provider: Wayne Stone Reason For Exam: Physician to Consult 05/02/20 19:06 Consult to Physician [CONS] Routine Comment: Consulting Provider: Albino Powers Reason For Exam: Physician to Consult Discharge Meds Discharge Medications Home Medications magnesium oxide 500 mg capsule 500 mg PO QDAY 03/17/16 [History Confirmed 05/02/20 Last Taken 04/22/20] cholecalciferol (vitamin D3) 3,000 unit PO QDAY cap 07/08/16 [History Confirmed 05/02/20 Last Taken 04/30/20] lorazepam 0.5 mg tablet 0.5 mg BUCCAL QD-BID PRN 10/24/17 [History Confirmed 05/02/20 Last Taken 05/01/20] hydroxychloroquine 200 mg tablet 200 mg PO .COMPLEX tab 10/19/18 [History Confirmed 05/02/20 Last Taken 05/01/20] leflunomide 20 mg tablet 20 mg PO QDAY 10/19/18 [History Confirmed 05/02/20 Last Taken 05/01/20] omega-3 fatty acids 1,000 mg capsule 1,000 mg PO QDAY 10/19/18 [History Confirmed 05/02/20 Last Taken 04/23/20] gabapentin 300 mg capsule 600 mg PO DAILY cap 12/07/19 [History Confirmed 05/02/20 Last Taken 05/02/20 06:00] ibuprofen 200 mg tablet 800 mg PO Q8H tab 12/07/19 [History Confirmed 05/02/20 Last Taken 05/02/20 06:00] methocarbamol 750 mg tablet 1,500 mg PO qhs PRN tab 12/07/19 [History Confirmed 05/02/20 Last Taken 05/02/20] tramadol 50 mg tablet 50 mg PO BID PRN tab 12/07/19 [History Confirmed 05/02/20 Last Taken 05/02/20 06:00] triamcinolone acetonide 0.1 % topical cream 1 applic TOPICAL TID #30 g 03/29/20 [Rx Confirmed 05/02/20 Last Taken Unknown] diclofenac sodium 1 % topical gel 2 g TOPICAL QID PRN 04/04/20 [History Confirmed 05/02/20 Last Taken Unknown] Humira(CF) Pen 40 mg Q2W 05/02/20 [History Confirmed 05/04/20 Last Taken 05/01/20] gabapentin 300 mg PO QHS 05/02/20 [History Confirmed 05/02/20 Last Taken 05/01/20 20:00] cefazolin 2 gm IV Q8H #78 ea 05/12/20 [Rx Last Taken Unknown] docusate sodium 100 mg PO BID #60 cap 05/12/20 [Rx Last Taken Unknown] hydrocodone-acetaminophen 1 - 2 tab PO Q4HP PRN #24 tab 05/12/20 [Rx Last Taken Unknown] COURSE Hospital Course Hospital course: . Discharge diagnosis: . Time Spent with Patient Time attestation: Total time spent providing and/or coordinating discharge services: EXAM Constitutional Vitals: Temp Pulse Resp BP Pulse Ox 98.0 F 75 18 120/79 96 05/12/20 07:47 05/12/20 07:47 05/12/20 07:47 05/12/20 07:47 05/12/20 07:47 Discharge Plan Patient/Caregiver Discharge Instructions Activity: increase activity as tolerated Diet: Regular Diet Instructions: Hydrocodone/Acetaminophen (By mouth), Laxative, Stool Softeners (By mouth), Cefazolin (By injection), Abscess Incision and Drainage (DC) Activity Restrictions/Additional Instructions: Resume home diet as tolerated. recommends high protein calorie supplements Increase activity as tolerated. Refrain from smoking and alcohol. Continue antibiotics for total of [address] [facility] services at 3:00 pm on Sunday 05/13. Follow-up at [facility] on 05/20 at 1:15 pm. [phone] recommends PCP to check CBC BMP UA as a posthospital follow-up in 1 week. recommends continued follow up of CBC CMP weekly/ESR CRP every other week to be coordinated by primary care physician Follow up with infectious specialist at [facility]. Dr. Rodriguez in 2 weeks. Contact the office on Saturday 05/12 to schedule. [phone] also recommends dermatology follow-up for evaluation of skin rash. Contact office of your choice on Saturday 05/12 to schedule. Your prescriptions are with your discharge paperwork. 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 Take all medication as directed. Return to ER for fever, chills, nausea and/or vomiting, dizziness, uncontrolled pain, unable to go to the bathroom, shortness of breath, chest pain, redness, signs of infection, return of symptom, or other acute symptom. This discharge packet is provided to you to help keep you informed about your care. We want to ensure you get everything you need when you go home. You will also be receiving a call from us in a few days to follow up with you and see how you are doing since your discharge. This gives us a chance to listen to any concerns you maybe experiencing since you were discharged or any additional needs you may have, as well as providing us feedback on your care experience. We strive to always provide excellent care and thank you for your feedback and for choosing [facility]. Stand Alone Forms: Work/Release Restrictions Prescriptions: New cefazolin 1 gram Recon Soln 2 gm IV Q8H Qty: 78 RF: 0 hydrocodone-acetaminophen 5-325 mg Tablet 1 - 2 tab PO Q4HP PRN (Reason: Per Pain Protocol) Qty: 24 RF: 0 docusate sodium 100 mg Capsule 100 mg PO BID Qty: 60 RF: 0 Continued magnesium oxide 500 mg capsule 500 mg PO QDAY RF: 0 cholecalciferol (vitamin D3) 2,000 unit capsule 3,000 unit PO QDAY RF: 0 diclofenac sodium [Voltaren] 1 % gel 2 g TOPICAL QID PRN (Reason: Pain) RF: 0 lorazepam 0.5 mg tablet 0.5 mg BUCCAL QD-BID PRN (Reason: Anxiety) RF: 0 methocarbamol 750 mg tablet 1,500 mg PO qhs PRN (Reason: low back pain) RF: 0 tramadol 50 mg tablet 50 mg PO BID PRN (Reason: pain) RF: 0 ibuprofen 200 mg tablet 800 mg PO Q8H RF: 0 triamcinolone acetonide 0.1 % cream 1 applic TOPICAL TID Qty: 30 RF: 0 omega-3 fatty acids [Fish Oil Concentrate] 1,000 mg capsule 1,000 mg PO QDAY RF: 0 leflunomide 20 mg tablet 20 mg PO QDAY RF: 0 hydroxychloroquine [Plaquenil] 200 mg tablet 200 mg PO .COMPLEX RF: 0 gabapentin 300 mg capsule 600 mg PO DAILY RF: 0 gabapentin 300 mg Capsule 300 mg PO QHS RF: 0 Humira(CF) Pen 40 mg/0.4 mL Pen Injector Kit 40 mg Q2W RF: 0 Other Ambulatory Orders: Outpatient PICC Care (Daily) Location: None Selected Ordered By: Jl Villarreal Toilet Rails Discharge order (ONCE) Location: None Selected Ordered By: Jl Villarreal Walker (ONCE) Location: None Selected Ordered By: Jl Villarreal Follow Up Plan Follow up with: Lory Laird ARNP [Primary Care Provider] - Waqas Rodriguez [Referring] - (follow up in one week) Patient Disposition: Home, Self-Care Rehab Potential: Fair I certify that the patient requires SNF services: No Overall status at discharge: patient is progressing back to baseline Discharge Date/Time: 05/12/20 16:40 Discharge Orders: Discharge Order (Routine); Ordered 05/12/20 Ordered By: Jl Villarreal Discharge Comment: Wheeled patient to exit and met friend at her car. QUALITY VTE Deep Vein Thrombosis/Pulmonary Embolism Present on Admission: No
[2020-05-12 14:58] LABS: Cannabinoid Confirmation POSITIVE (N)
[2020-05-12] MEDS ORDERED: ceFAZolin 8 GM in 0.9 % SODIUM CHLORIDE 200 ML IV ONE (15:00)
--- NOTE | 2020-05-13 11:04 | Non-GYN Cytology Report ---
NON CHIEF [facility] ADMINISTRATOR SPECIMEN NG DX CATEGORY Negative MICROSCOPIC DIAGNOSIS SOFT TISSUE, SUBMITTED "PSOAS ABSCESS", FINE NEEDLE ASPIRATE: -- MARKED NEUTROPHILIC INFLAMMATION WITH DEGENERATED CELLULAR DEBRIS, CONSISTENT WITH ABSCESS. -- NO ATYPICAL OR MALIGNANT CELLS IDENTIFIED. (DMT:adj) MICROSCOPIC DESCRIPTION A thinprep monolayer slide, Diff Quik stained cytospin slide, pap stained cytospin slide and a cell block slide are reviewed. Each contains numerous neutrophils with degenerated cellular debris and macrophages. There is a moderate amount of blood within the background. No atypical or malignant cells are identified. (DMT:adj) EXTERNAL COMMENT ~10 mL fresh thick cloudy red fluid/material: 1 thinprep, 1 Diff Quik, 1 pap, 1 cell block Electronically Signed by: Waqas Holly M.D.
--- NOTE | 2020-05-13 11:04 | Non-GYN Cytology Report ---
NON COACH [employer] SPECIMEN NG DX CATEGORY Negative MICROSCOPIC DIAGNOSIS SOFT TISSUE, LEFT PSOAS MUSCLE, FINE NEEDLE ASPIRATE: -- MARKED ACUTE INFLAMMATION AND DEGENERATED CELLULAR DEBRIS, CONSISTENT WITH ABSCESS. -- NO ATYPICAL OR MALIGNANT CELLS IDENTIFIED. (DMT:adj) MICROSCOPIC DESCRIPTION A thinprep monolayer slide and a cell block slide are reviewed. Each contains numerous neutrophils, abundant degenerated cellular debris and blood. Numerous associated macrophages are also seen. No atypical or malignant cells are identified. (DMT:adj) EXTERNAL COMMENT ~2 mL thick red fluid: 1 thinprep, 1 cell block Electronically Signed by: Waqas Holly M.D.
== END 2020-05-12 16:40 | disposition home or self-care (01) | DRG 372 ==
LOC: ED 11:28 → MEDSUR 19:19
PROVIDERS: ADMIT Internal Medicine; ATTEND Internal Medicine